=== PATIENT | male | born 1960 | race Caucasian/White ===

== ENCOUNTER 2023-10-06 18:17 | Emergency (ER) | payer OTHER, SELFPAY ==
--- OUTSIDE RECORDS SUMMARY | 2023-10-06 19:40 | XMS_ITS | Clinical Summary ---
Author Name Unknown Organization [facility] Address [address] [place] [address] Care Team Providers Care Medical Coding Auditor Name Role Phone Clinic, Amina Chavez Primary Care Provider Allergies Active Allergy Reactions Criticality Noted Date Comments Oxycodone Nausea and Vomiting 02/23/2012 Medications Medication Sig Dispensed Refills Start Date End Date Status SIMVASTATIN PO Take 40 mg by mouth At Bedtime 0 Active omeprazole (PRILOSEC) 40 MG capsule Take 1 capsule (40 mg) by mouth daily Take 30-60 minutes before a meal. 30 capsule 1 06/15/2016 Active SERTRALINE HCL PO Take 150 mg by mouth At Bedtime 0 Active ATENOLOL PO Take 25 mg by mouth every evening 0 Active metFORMIN (GLUCOPHAGE-XR) 500 MG 24 hr tablet TAKE ONE TABLET BY MOUTH EVERY DAY WITH EVENING MEAL 0 04/25/2018 Active busPIRone (BUSPAR) 10 MG tablet Take 10 mg by mouth 3 times daily 0 Active ibuprofen (ADVIL/MOTRIN) 800 MG tablet Take 1 tablet (800 mg) by mouth every 8 hours as needed for moderate pain 30 tablet 0 02/19/2019 Active atenolol (TENORMIN) 25 MG tablet Take 25 mg by mouth daily 0 12/28/2020 Active benzonatate (TESSALON) 200 MG capsuleIndications:S uspected 2019 novel coronavirus infection,Cough Take 1 capsule (200 mg) by mouth 3 times daily as needed for cough 30 capsule 0 08/01/2021 Active guaiFENesin-codeine (ROBITUSSIN AC) 100-10 MG/5ML solutionIndications: Suspected 2019 novel coronavirus infection,Cough Take 10 mLs by mouth every 6 hours as needed for cough 118 mL 0 08/01/2021 Active azithromycin (ZITHROMAX) 250 MG tablet Take 1 tablet (250 mg) by mouth daily Take 2 tablets (500 mg) today, then take 1 tablet daily on days 2 through 5. 6 tablet 0 08/23/2021 Active albuterol (PROAIR HFA) 108 (90 Base) MCG/ACT inhaler Inhale 2 puffs into the lungs every 4 hours as needed for shortness of breath / dyspnea 8 g 0 08/23/2021 Active metoclopramide (REGLAN) 10 MG tablet Take 1 tablet (10 mg) by mouth 3 times daily as needed (Nausea or Vomiting) 10 tablet 0 10/19/2021 Active metoclopramide (REGLAN) 10 MG tablet Take 1 tablet (10 mg) by mouth 4 times daily (before meals and nightly) 10 tablet 0 12/09/2021 Active hyoscyamine (LEVSIN) 0.125 MG tablet Take 1 tablet (125 mcg) by mouth every 4 hours as needed for cramping 8 tablet 0 12/09/2021 Active oxyCODONE (ROXICODONE) 5 MG tablet Take 1 tablet (5 mg) by mouth every 6 hours as needed for severe pain (7-10) 6 tablet 0 08/30/2022 Active HYDROcodone-acetamin ophen (NORCO) 5-325 MG tablet Take 1 tablet by mouth every 6 hours as needed for pain 10 tablet 0 03/31/2023 Active Active Problems Problem Noted Date Diagnosed Date Dislocated finger 03/25/2011 Contact dermatitis and other eczema, due to unspecified cause 03/25/2011 Immunizations Name Administration Dates Next Due Influenza Vaccine >6 months,quad, PF 06/20/2019, 06/13/2018,07/16/2017 Pneumococcal 23 valent 04/01/2018 Td (Adult), Adsorbed 07/16/2017 Zoster recombinant adjuvanted (SHINGRIX) 018,03/06/2018 Zoster vaccine, live 03/23/2016 Family History Medical History Relation Comments Cancer No family hx of Clotting Disorder No family hx of Diabetes No family hx of Gout No family hx of Heart Disease No family hx of Urolithiasis No family hx of Social History Tobacco Use Types Packs/Day Years Used Date Smoking Tobacco: Never Smokeless Tobacco: Never Alcohol Use Standard Drinks/Week Comments No 0 (1 standard drink = 0.6 oz pur e alcohol) Adolescent Education Answer Date Record ed Getting School Help Needed Not on file 06/13 Sex and Gender Information Value Date Recorded Sex Assigned at Not on file Gender Identity Not on file Sexual Orientation Not on file Last Filed Vital Signs Vital Sign Reading Time Taken Comments Blood Pressure 148/85 04/18/2023 6:50 PM CDT Pulse 88 04/18/2023 6:46 PM CDT Temperature 36.1 ??C (97 ??F) 04/18/2023 12: 44 PM CDT Respiratory Rate 20 04/18/2023 12:4 4 PM CDT Oxygen Saturation 96% 04/18/2023 3:35 PM CDT Inhaled Oxygen Concentration - - Weight 64.7 kg (142 lb 10.2 oz) 023 12:44 PM CDT Height 165.1 cm (5' 5) 10/19/2021 3:05 PM SHINGLE INSPECTOR Body Mass Index 23.74 10/19/2021 3:05 PM SHINGLE INSPECTOR Plan of Treatment Health Maintenance Due Date Last Done Comments ADVANCE CARE PLANNING 1960 ANNUAL REVIEW OF HM ORDERS 1958 CT COLONOGRAPHY 1958 DIABETIC FOOT EXAM 1958 EYE EXAM 1958 FLEX SIG 1958 LIPID 1958 MICROALBUMIN 1958 sDNA (Cologuard) 1958 COLONOSCOPY 1968 HIV SCREENING 1973 HEPATITIS C SCREENING 1976 RSV VACCINE ( & 60+) (1 - 1-dose 60+ series) 2018 A1C 06/30/2022 03/30/2022, 07/30, 05/18/2018 COLORECTAL CANCER SCREENING 12/01/2022 FIT 12/01/2022 12/01/2021, 08/10/2018 COVID-19 Vaccine ( season) 2023 07/01/2022, 01/18/2022, 06/20/2021, Additional history exists FALL RISK ASSESSMENT 2023 MEDICARE ANNUAL WELLNESS VISIT 2023 PHQ-2 (once per calendar year) 2023 BMP 04/18/2024 04/18/2023, 0809/2022, 08/30/2022, Additional history exists DTAP/TDAP/TD IMMUNIZATION (3 - Td or Tdap) 07/16/2027 07/16/2017, 09/18/2005 ZOSTER IMMUNIZATION Completed 05/29/2018, 03/06/2018, 03/23/2016 Pneumococcal Vaccine: 65+ Years Completed 01/18/2022, 04/01/2018 INFLUENZA VACCINE Completed 06/19/2023, , 06/15/2021, Additional history exists HPV IMMUNIZATION Aged Out No longer e ligible based on patient's age to complete this topic IPV IMMUNIZATION Aged Out No longer e ligible based on patient's age to complete this topic MENINGITIS IMMUNIZATION Aged Out No l onger eligible based on patient's age to complete this topic RSV MONOCLONAL ANTIBODY Aged Out No l onger eligible based on patient's age to complete this topic Care Teams Medical Coding Auditor Relationship Specialty Start Date End Date Clinic, Amina Chavez [address] [place] [address] [place] [id number] PCP - General 12/09/21
--- OUTSIDE RECORDS SUMMARY | 2023-10-06 19:40 | XMS_ITS | Encounter Summary ---
Author Name Unknown Organization [facility] Address [address] [place] [address] Care Team Providers Care Statistical Geneticist Name Role Phone Amina Thurman Primary Care Provider [phone] Encounter Details Date Type Department Care Team (Latest Contact Info) Description 04/18/2023 Travel Social History Tobacco Use Types Packs/Day Years Used Date Smoking Tobacco: Never Smokeless Tobacco: Never Alcohol Use Standard Drinks/Week Comments No 0 (1 standard drink = 0.6 oz pur e alcohol) Sex and Gender Information Value Date Recorded Sex Assigned at Not on file Gender Identity Not on file Sexual Orientation Not on file COVID-19 Exposure Response Date Recorded In the last 10 days, have yo u been in contact with someone who was confirmed or suspected to have Coronavirus/COVID-19? No / Unsure 04/18/2023 12:43 PM CDT documented as of this encounter Plan of Treatment Not on file documented as of this encounter Visit Diagnoses Not on filedocumented in this encounter Care Teams Statistical Geneticist Relationship Specialty Start Date End Date [facility] Thurman [address] [facility] [id number] PCP - General 12/09/21 documented as of this encounter
--- OUTSIDE RECORDS SUMMARY | 2023-10-06 19:40 | XMS_ITS | Encounter Summary ---
Author Name Unknown Organization [facility] Address [address] [place] [address] Care Team Providers Care Steel Crane Operator Name Role Phone Amina Thurman Primary Care Provider [phone] Encounter Details Date Type Department Care Team (Latest Contact Info) Description 03/31/2023 Travel Social History Tobacco Use Types Packs/Day [...] suspected to have Coronavirus/COVID-19? No / Unsure 03/31/2023 7:55 AM CDT documented as of this encounter Plan of Treatment Not on file documented as of this encounter Visit Diagnoses Not on filedocumented in this encounter Care Teams Steel Crane Operator Relationship Specialty Start Date End Date Amina Thurman [address] [place] [address] PCP - General 12/09/21 documented as of this encounter
--- OUTSIDE RECORDS SUMMARY | 2023-10-06 19:40 | XMS_ITS | Encounter Summary ---
Author Name Unknown Organization [facility] Address [address] [place] [id number] Care Team Providers Care Supervisor Mail Carriers Name Role Phone Clinic, Amina Chavez Primary Care Provider Reason for Visit * Reason Comments Flank Pain Encounter Details Date Type Department Care Team (Late st Contact Info) Description 03/31/2023 8:05 AM CDT - 03/31/2023 10:30 AM CDT Emergency [facility] Emergency Dept [address] [place] [id number] Richard Zaragoza MD [facility] [address] [place] [address] Renal colic Discharge Disposition: Home or Self Care Social History Tobacco Use Types Packs/Day Years [...] AM CDT documented as of this encounter Last Filed Vital Signs Vital Sign Reading Time Taken Comments Blood Pressure 140/91 03/31/2023 8:00 AM CDT Pulse 89 03/31/2023 10:08 AM CDT Temperature 36.5 ??C (97.7 ??F) 03/31/2023 8:00 AM CD T Respiratory Rate 20 03/31/2023 8:00 AM CDT Oxygen Saturation 96% 03/31/2023 8:00 AM CDT Inhaled Oxygen Concentration - - Weight - - Height - - Body Mass Index - - documented in this encounter Discharge Instructions * Discharge Instructions* Richard Zaragoza MD - 03/31/2023 10:08 AM CDT Please follow up with your urologist in the next 3-5 days. Discharge Instructions Kidney Stones Kidney stones are a common problem that can cause a lot of pain but fortunately are usually not dangerous. Kidney stones form in the kidney and then can cause a blockage (obstruction) of the flow of urine from the kidney which leads to pain. Most patients can manage kidney stones at home (without ahospital stay). However, sometimes your condition may be worse than it seemed at first, or may get worse with time. Most kidney stones will pass on their own, but occasionally stones may need to be removed by an urologist. Generally, every Emergency Department visit should have a follow-up clinic visit with either a primary or a specialty clinic/provider. Please follow-up as instructed by your emergency provider today. Return to the Emergency Department if: Your pain is not controlled despite the medications provided or recommended. You are vomiting (throwing up) and cannot keep fluids or medications down. You develop a fever (>100.4??F). You feel much more ill or develop new symptoms. What can I do to help myself? Be sure to drink plenty of fluids. If instructed to do so, strain your urine (pee) with the urine strainer you were provided with today. Your stone may look like a grain of sand or a small pebble. Collect any stones in the cup provided and bring to your follow-up appointment. Staying active is good, and may help the stone to pass. You may do whatever you feel up to doing without restrictions. Treatment: Non-steroidal anti-inflammatory drugs (NSAIDs). This includes prescription medicines like Toradol??(ketorolac) and non-prescription medicines like Advil?? (ibuprofen) and Nuprin?? (ibuprofen) and Naproxen. These pain relievers are very effective for kidney stones. Nausea (sick to your stomach) medication. Nausea and vomiting are common with kidney stones, so your provider may send you home with medicine for this. Flomax?? (tamsulosin). This medicine is sometimes used for men with prostate problems, but also canhelp kidney stones to pass. Its effectiveness is controversial or questionable so it is prescribed in certain situations. This medicine can lower blood pressure, and you may feel faint/lightheaded, es pecially when you first stand up. Be sure to get up gradually, sit down if you feel faint, and avoid activity where feeling faint would be dangerous, such as climbing ladders. If you were given a prescription for medicine here today, be sure to read all of the information (including the package insert) that comes with your prescription. This will include important information about the medicine, its side effects, and any warnings that you need to know about. The pharmacist who fills the prescription can provide more information and answer questions you may have about the medicine. If you have questions or concerns that the pharmacist cannot address, please call or return to the Emergency Department. Remember that you can always come back to the Emergency Department if you are not able to see your regular provider in the amount of time listed above, if you get any new symptoms, or if there is anything that worries you. documented in this encounter Medications at Time of Discharge Medication Sig Dispensed Refills Start Date End Date albuterol (PROAIR HFA) 108 (90 Base) MCG/ACT inhaler Inhale 2 puffs into the lungs every 4 hours as needed for shortness of breath / dyspnea 8 g 0 08/23/2021 atenolol (TENORMIN) 25 MG tablet Take 25 mg by mouth daily 0 12/28/2020 ATENOLOL PO Take 25 mg by mouth every evening 0 azithromycin (ZITHROMAX) 250 MG tablet Take 1 tablet (250 mg) by mouth daily Take 2 tablets (500 mg) today, then take 1 tablet daily on days 2 through 5. 6 tablet 0 08/23/2021 benzonatate (TESSALON) 200 MG capsuleIndications:Mackenzie pected 2019 novel coronavirus infection,Cough Take 1 capsule (200 mg) by mouth 3 times daily as needed for cough 30 capsule 0 08/01/2021 busPIRone (BUSPAR) 10 MG tablet Take 10 mg by mouth 3 times daily 0 guaiFENesin-codeine (ROBITUSSIN AC) 100-10 MG/5ML solutionIndications:Velazquez spected 2018 novel coronavirus infection,Cough Take 10 mLs by mouth every 6 hours as needed for cough 118 mL 0 08/01/2021 HYDROcodone-acetaminop hen (NORCO) 5-325 MG tablet Take 1 tablet by mouth every 6 hours as needed for pain 10 tablet 0 03/31/2023 hyoscyamine (LEVSIN) 0.125 MG tablet Take 1 tablet (125 mcg) by mouth every 4 hours as needed for cramping 8 tablet 0 12/09/2021 ibuprofen (ADVIL/MOTRIN) 800 MG tablet Take 1 tablet (800 mg) by mouth every 8 hours as needed for moderate pain 30 tablet 0 02/19/2019 metFORMIN (GLUCOPHAGE-XR) 500 MG 24 hr tablet TAKE ONE TABLET BY MOUTH EVERY DAY WITH EVENING MEAL 0 04/25/2018 metoclopramide (REGLAN) 10 MG tablet Take 1 tablet (10 mg) by mouth 4 times daily (before meals and nightly) 10 tablet 0 12/09/2021 metoclopramide (REGLAN) 10 MG tablet Take 1 tablet (10 mg) by mouth 3 times daily as needed (Nausea or Vomiting) 10 tablet 0 10/19/2021 omeprazole (PRILOSEC) 40 MG capsule Take 1 capsule (40 mg) by mouth daily Take 30-60 minutes before a meal. 30 capsule 1 06/15/2016 oxyCODONE (ROXICODONE) 5 MG tablet Take 1 tablet (5 mg) by mouth every 6 hours as needed for severe pain (7-10) 6 tablet 0 08/30/2022 SERTRALINE HCL PO Take 150 mg by mouth At Bedtime 0 SIMVASTATIN PO Take 40 mg by mouth At Bedtime 0 ondansetron (ZOFRAN ODT) 4 MG ODT tab Take 1 tablet (4 mg) by mouth every 8 hours as needed for nausea 10 tablet 0 03/31/2023 04/03/2023 tamsulosin (FLOMAX) 0.4 MG capsule Take 1 capsule (0.4 mg) by mouth daily for 10 doses 10 capsule 0 03/31/2023 04/10/2023 documented as of this encounter ED Notes * Elda Ascencio RN - 03/31/2023 8:57 AM CDT Bed: ED34 Expected date: Expected time: Means of arrival: Comments: FT4 * Gill Marie RN - 03/31/2023 8:01 AM CDT Arrives with right flank pain and vomiting that started last night, alert and oriented, ABCs intact. Triage Assessment Row Name 03/31/23 0801 Triage Assessment (Adult) Airway WDL WDL Respiratory WDL Respiratory WDL WDL Skin Circulation/Temperature WDL Skin Circulation/Temperature WDL WDL Cardiac WDL Cardiac WDL WDL Peripheral/Neurovascular WDL Peripheral Neurovascular WDL WDL Cognitive/Neuro/Behavioral WDL Cognitive/Neuro/Behavioral WDL WDL * Richard Zaragoza MD - 03/31/2023 7:55 AM CDT History Chief Complaint: Right Flank Pain The history is provided by the patient. Kev Yi is a 62 year old male with a history of kidney stones who presents with sudden onset of right flank pain which radiates to his right lower quadrant and started 10 hours ago. He has associated nausea and seven episodes of vomiting since onset of the pain. He denies fever or dysuria. He adds a CT 8 months ago confirmed 6 kidney stones in the right kidney and he notes he has only passedone since then. He notes he does not currently have a urologist. No history of abdominal surgeries.Patient has needed stents for his kidney stones in the past. Independent Historian: None - Patient Only Review of External Notes: None Medications: Semaglutide Lantus Solostar Cholecalciferol Eliquis Cyclobenzaprine Insulin glargine Ondansetron Pantoprazole Sucralfate Past Medical History: Type 2 diabetes mellitus with hyperglycemia Hypertension Hyperlipidemia Kidney stones Nuclear senile cataract of both eyes Hepatic steatosis Thrombosis superficial vein, arm, left DVT Gastric ulcer Presbyopia Hypermetropia of both eyes Anxiety Past Surgical History: Cystoscopy Ureteroscopy Lithotripsy EGD, combined X4 Physical Exam Patient Vitals for the past 24 hrs: BP Temp Temp src Pulse Resp SpO2 03/31/23 1008 -- -- -- 89 -- -- 03/31/23 0800 (!) 140/91 97.7 ??F (36.5 ??C) Oral 110 20 96 % Physical Exam HEENT: Oropharynx is moist Eyes: Conjunctiva normal Neck: Supple, no meningismus. CV: Regular rate and rhythm. No murmurs, rubs or gallops. No lower extremity edema. PULM: Clear to auscultation bilateral. No respiratory distress. Good air exchange. No rales or wheezing. ABD: Soft, non-distended. No abdominal tenderness although appears uncomfortable in bed. Bowel sounds normal. No pulsatile masses. No rebound, guarding or rigidity. No CVA tenderness. MSK: No gross deformity to all four extremities. LYMPH: No cervical lymphadenopathy. NEURO: Alert. Good muscular tone, no atrophy. Skin: Warm, dry and intact. Psych: Mood is good and affect is appropriate. Emergency Department Course Imaging: US Renal Complete Non-Vascular Final Result IMPRESSION: 1. Mild right hydronephrosis. Right nephrolithiasis. 2. No left hydronephrosis. JEROD ZAPIEN MD Report per radiology Laboratory: Labs Ordered and Resulted from Time of ED Arrival to Time of ED Departure BASIC METABOLIC PANEL - Abnormal Result Value Sodium 138 Potassium 4.0 Chloride 106 Carbon Dioxide (CO2) 21 (*) Anion Gap 11 Urea Nitrogen 13.6 Creatinine 0.85 Calcium 8.9 Glucose 156 (*) GFR Estimate >90 ROUTINE UA WITH MICROSCOPIC REFLEX TO CULTURE - Abnormal Color Urine Light Yellow Appearance Urine Clear Glucose Urine 300 (*) Bilirubin Urine Negative Ketones Urine 20 (*) Specific [place] Urine 1.013 Blood Urine Negative pH Urine 7.0 Protein Albumin Urine Negative Urobilinogen Urine Normal Nitrite Urine Negative Leukocyte Esterase Urine Negative Bacteria Urine Few (*) Mucus Urine Present (*) RBC Urine <1 WBC Urine <1 CBC WITH PLATELETS AND DIFFERENTIAL WBC Count 10.0 RBC Count 4.90 Hemoglobin 15.8 Hematocrit 46.2 MCV 94 MCH 32.2 MCHC 34.2 RDW 11.9 Platelet Count 225 % Neutrophils 82 % Lymphocytes 8 % Monocytes 8 % Eosinophils 2 % Basophils 0 % Immature Granulocytes 0 NRBCs per 100 WBC 0 Absolute Neutrophils 8.3 Absolute Lymphocytes 0.8 Absolute Monocytes 0.8 Absolute Eosinophils 0.2 Absolute Basophils 0.0 Absolute Immature Granulocytes 0.0 Absolute NRBCs 0.0 Emergency Department Course & Assessments: Interventions: Medications HYDROmorphone (PF) (DILAUDID) injection 0.5 mg (0.5 mg Intravenous $Given 03/31/23 0930) ondansetron (ZOFRAN) injection 8 mg (8 mg Intravenous $Given 03/31/23820) 0.9% sodium chloride BOLUS (1,000 mLs Intravenous $New Bag 03/31/23820) ketorolac (TORADOL) injection 15 mg (15 mg Intravenous $Given 03/31/23821) Independent Interpretation (X-rays, CTs, rhythm strip): None Assessments/Consultations/Discussion of Management or Tests: ED Course as of 03/31/23 1010 WedMar 31, 2023 0810 I obtained the patient's history and examined as noted above. 1004 I rechecked the patient and explained findings. Social Determinants of Health affecting care: None Disposition: The patient was discharged to home. Impression & Plan Medical Decision Makin-year-old male with a history of recurrent ureteral colic presents with abrupt onset of right flank pain 10 hours prior. He has a history and examination that's consistent with recurrent ureteral stone. There is no associated urinary tract infection or renal insufficiency. He's had multiple CT scans evaluating for ureteral stones. Most recent CT scan showed bilateral intrarenal stones. In attempt to avoid excessive radiation, patient underwent renal ultrasound in which there is right-sided hydronephrosis again consistent with ureteral stone. Patient had remarkable improvement with interventions as described above. We will presumptively treat for right ureteral stone with hydrocodone, Zofran, Flomax and follow-up with urology. Return to ED for worsening symptoms. Diagnosis: ICD-10-CM 1. Renal colic N23 Discharge Medications: New Prescriptions HYDROCODONE-ACETAMINOPHEN (NORCO) 5-325 MG TABLET Take 1 tablet by mouth every 6 hours as needed for pain ONDANSETRON (ZOFRAN ODT) 4 MG ODT TAB Take 1 tablet (4 mg) by mouth every 8 hours as needed for nausea TAMSULOSIN (FLOMAX) 0.4 MG CAPSULE Take 1 capsule (0.4 mg) by mouth daily for 10 doses Scribe Disclosure: I, Melissa Stacie, am serving as a scribe at 8:07 AM on 03/31/2023 to document services personally performed by Richard Zaragoza MD based on my observations and the provider's statements to me. 03/31/2023 Richard Zaargoza MD Matthews, Jeremiah R, MD 03/31/23 1240 documented in this encounter Plan of Treatment Not on file documented as of this encounter Procedures Procedure Name Priority Date/Time Associated Diagnosis Comments ROUTINE UA WITH MICROSCOPIC REFLEX TO CULTURE STAT 03/31/2023 9:27 AM CDT US RENAL COMPLETE NON-VASCULAR STAT 03/31/2023 9:24 AM CDT EXTRA TUBE STAT 03/31/2023 8:15 AM CDT EXTRA RED TOP TUBE STAT 03/31/2023 8: 15 AM CDT EXTRA BLUE TOP TUBE STAT 03/31/2023 8 :15 AM CDT CBC WITH PLATELETS AND DIFFERENTIAL STAT 03/31/2023 8:15 AM CDT CBC WITH PLATELETS & DIFFERENTIAL STAT 03/31/2023 8:15 AM CDT BASIC METABOLIC PANEL STAT 03/31/2023 8:15 AM CDT documented in this encounter Results * (ABNORMAL) UA with Microscopic reflex to Culture (03/31/2023 9:27 AM CDT) Color Urine Light Yellow Colorless, Straw, Light Yellow, Yellow 03/31/2023 9:46 AM CDT [facility] Appearance Urine Clear Clear 03/31/20 9:46 AM CDT LABORATORY Glucose Urine 300(A) Negative mg/dL 03/31/2023 9:46 AM CDT [facility] Bilirubin Urine Negative Negative 9:46 AM CDT LABORATORY Ketones Urine 20(A) Negative mg/dL 03/31/2023 9:46 AM CDT [facility] Specific [place] Urine 1.013 1.003 - 1.035 03/31/2023 9:46 AM CDT [facility] Blood Urine Negative Negative 03/31/2023 9:46 AM CDT LABORATORY pH Urine 7.0 5.0 - 7.0 03/31/2023 9:46 AM CDT [facility] Protein Albumin Urine Negative Negative mg/dL 03/31/2023 9:46 AM CDT [facility] Urobilinogen Urine Normal Normal, 2.0 mg/dL 03/31/2023 9:46 AM CDT [facility] Nitrite Urine Negative Negative 03/31/2023 9:46 AM CDT [facility] Leukocyte Esterase Urine Negative Negative 03/31/2023 9:46 AM CDT LABORATORY Bacteria Urine Few(A) None Seen /HPF 03/31/2023 9:46 AM CDT LABORATORY Mucus Urine Present(A) None Seen /LPF 03/31/2023 9:46 AM CDT [facility] RBC Urine <1 <=2 /HPF 03/31/2023 9:46 AM CDT [facility] WBC Urine <1 <=5 /HPF 03/31/2023 9:46 AM CDT LABORATORY Urine MID-STREAM URINE SPECIMEN / Unknown Non-blood Collection / Unknown 03/31/2023 9:27 AM CDT 03/31/2023 9:31 AM CDT Narrative LABORATORY - 03/31/2023 9:46 AM CDT Urine Culture not indicated Richard Zaragoza MD LAB - URINE ORDER [facility] [address] Lab (1st floor, no room number) [place] [address], [facility] [phone] * US Renal Complete Non-Vascular (03/31/2023 9:24 AM CDT) Anatomical Region Laterality Modality Abdomen/Pelvis Ultrasound Impressions 03/31/2023 9:34 AM CDT IMPRESSION: 1. ??Mild right hydronephrosis. Right nephrolithiasis. 2. ??No left hydronephrosis. JEROD ZAPIEN MD Narrative 03/31/2023 9:34 AM CDT US RENAL COMPLETE NON-VASCULAR 03/31/2023 9:24 AM CLINICAL HISTORY: right flank pain, hx of ureteral stones TECHNIQUE: Routine Bilateral Renal and Bladder Ultrasound. COMPARISON: CT abdomen and pelvis 08/30/2022. FINDINGS: RIGHT KIDNEY: 11.4 x 5.4 x 5.0 cm. Normal echogenicity. Mild hydronephrosis. Echogenic structure with twinkle artifact in the right interpolar kidney measuring up to 4 mm consistent with a calculus. No cysts. LEFT KIDNEY: 10.8 x 4.1 x 4.4 cm. Normal echogenicity without hydronephrosis or masses. No cysts. BLADDER: Normal. Procedure Note Jerod Zapien MD - 03/31/2023 US RENAL COMPLETE NON-VASCULAR 03/31/2023 9:24 AM CLINICAL HISTORY: right flank pain, hx of ureteral stones TECHNIQUE: Routine Bilateral Renal and Bladder Ultrasound. COMPARISON: CT abdomen and pelvis 08/30/2022. FINDINGS: RIGHT KIDNEY: 11.4 x 5.4 x 5.0 cm. Normal echogenicity. Mild hydronephrosis. Echogenic structure with twinkle artifact in the right interpolar kidney measuring up to 4 mm consistent with a calculus. No cysts. LEFT KIDNEY: 10.8 x 4.1 x 4.4 cm. Normal echogenicity without hydronephrosis or masses. No cysts. BLADDER: Normal. IMPRESSION: 1. Mild right hydronephrosis. Right nephrolithiasis. 2. No left hydronephrosis. JEROD ZAPIEN MD Richard Zaragoza MD [facility] US ORDERABLES * Extra Red Top Tube (03/31/2023 8:15 AM CDT) [facility] Specimen [facility] 03/31/2023 9:32 AM CDT [facility] Blood BLOOD SPECIMEN / Unknown Venipuncture / Unknown 03/31/2023 8:15 AM CDT 03/31/2023 8:18 AM CDT Richard Zaragoza MD LAB - BLOOD ORDER [facility] [address] Lab (1st floor, no room number) [place] [address], [facility] [phone] * Extra Blue Top Tube (03/31/2023 8:15 AM CDT) Hold Specimen [facility] 03/31/2023 9:32 AM CDT [facility] Blood BLOOD SPECIMEN / Unknown Venipuncture / Unknown 03/31/2023 8:15 AM CDT 03/31/2023 8:18 AM CDT Richard Zaragoza MD LAB - BLOOD ORDER [facility] [address] Lab (1st floor, no room number) [place] [phone], [facility] [phone] * CBC with platelets and differential (03/31/2023 8:15 AM CDT) WBC Count 10.0 4.0 - 11.0 10e3/uL 03/31/2023 8:22 AM CDT [facility] RBC Count 4.90 4.40 - 5.90 10e6/uL 03/31/2023 8:22 AM CDT [facility] Hemoglobin 15.8 13.3 - 17.7 g/dL 03/31/2023 8:22 AM CDT [facility] Hematocrit 46.2 40.0 - 53.0 % 03/31/2023 8:22 AM CDT [facility] MCV 94 78 - 100 fL 03/31/2023 8:22 AM CDT [facility] MCH 32.2 26.5 - 33.0 pg 03/31/2023 8:22 AM CDT [facility] MCHC 34.2 31.5 - 36.5 g/dL 03/31/2023 8:22 AM CDT [facility] RDW 11.9 10.0 - 15.0 % 03/31/2023 8:22 AM CDT [facility] Platelet Count 225 150 - 450 10e3/uL 03/31/2023 8:22 AM CDT [facility] % Neutrophils 82 % 03/31/2023 8:22 AM CDT [facility] % Lymphocytes 8 % 03/31/2023 8:22 AM CDT [facility] % Monocytes 8 % 03/31/2023 8:22 AM CDT [facility] % Eosinophils 2 % 03/31/2023 8:22 AM CDT [facility] % Basophils 0 % 03/31/2023 8:22 AM CDT [facility] % Immature Granulocytes 0 % 03/31/2023 8:22 AM CDT [facility] NRBCs per 100 WBC 0 <1 /100 023 8:22 AM CDT [facility] Absolute Neutrophils 8.3 1.6 - 8.3 10e3/uL 03/31/2023 8:22 AM CDT [facility] Absolute Lymphocytes 0.8 0.8 - 5.3 10e3/uL 03/31/2023 8:22 AM CDT [facility] Absolute Monocytes 0.8 0.0 - 1.3 10e3/uL 03/31/2023 8:22 AM CDT [facility] Absolute Eosinophils 0.2 0.0 - 0.7 10e3/uL 03/31/2023 8:22 AM CDT [facility] Absolute Basophils 0.0 0.0 - 0.2 10e3/uL 03/31/2023 8:22 AM CDT [facility] Absolute Immature Granulocytes 0.0 <=0.4 10e3/uL 03/31/2023 8:22 AM CDT [facility] Absolute NRBCs 0.0 10e3/uL 03/31/2023 8:22 AM CDT [facility] Blood BLOOD SPECIMEN / Unknown Venipuncture / Unknown 03/31/2023 8:15 AM CDT 03/31/2023 8:18 AM CDT Richard Zaragoza MD LAB - BLOOD ORDER [facility] [address] Lab (1st floor, no room number) [place] [address], [facility] [phone] * (ABNORMAL) Basic metabolic panel (03/31/2023 8:15 AM CDT) Sodium 138 136 - 145 mmol/L 03/31/2023 8:55 AM CDT LABORATORY Potassium 4.0 3.4 - 5.3 mmol/L 03/31/2023 8:55 AM CDT LAB[facility]ORY Chloride 106 98 - 107 mmol/L 03/31/2023 8:55 AM CDT LABORATORY Carbon Dioxide (CO2) 21(L) 22 - 29 mmol/L 03/31/2023 8:55 AM CDT LAB[facility]ORY Anion Gap 11 7 - 15 mmol/L 03/31/2023 8:55 AM CDT LABORATORY Urea Nitrogen 13.6 8.0 - 23.0 mg/dL 03/31/2023 8:55 AM CDT LABORATORY Creatinine 0.85 0.67 - 1.17 mg/dL 03/31/2023 8:55 AM CDT LABORATORY Calcium 8.9 8.8 - 10.2 mg/dL 03/31/2023 8:55 AM CDT LAB[facility]ORY Glucose 156(H) 70 - 99 mg/dL 03/31/2023 8:55 AM CDT LABORATORY GFR Estimate >90 >60 mL/min/1.7 3m2 03/31/2023 8:55 AM CDT LAB[facility] Blood BLOOD SPECIMEN / Unknown Venipuncture / Unknown 03/31/2023 8:15 AM CDT 03/31/2023 8:18 AM CDT Richard Zaragoza MD LAB - BLOOD ORDER [facility] [address] Lab (1st floor, no room number) [place] [address], [facility] [phone] documented in this encounter Visit Diagnoses Diagnosis Renal colic documented in this encounter Administered Medications Inactive Administered Medications - up to 3 most recent administrations Medication Order MAR Action Action Date Dose Rate Site 0.9% sodium chloride BOLUS Intravenous, 1,000 mL, ONCE, at 1,000 mL/hr, Administer over 1 Hours, On Wed03/31/23 at 0810, For 1 dose $New Bag 03/31/2023 8:21 AM CDT 1,000 mLs 1000 mL/hr HYDROmorphone (PF) (DILAUDID) injection 0.5 mg 0.5 mg, Intravenous, EVERY 15 MIN PRN, moderate pain, severe pain, Starting on Wed03/31/23 at 0900, For 3 doses $Given 03/31/2023 9:30 AM CDT 0.5 mg ketorolac (TORADOL) injection 15 mg 15 mg, Intravenous, ONCE, On Wed03/31/23 at 0820, For 1 dose, Can cause pain on injection. If ordered intravenously (IV) : administer through a running maintenance fluid over 1 minute followed by a flush. If patient complains of pain on injection, may dilute 15-30 mg in 5 mL and push over 1 to 2 minutes. $Given 03/31/2023 8:22 AM CDT 15 mg ondansetron (ZOFRAN) injection 8 mg 8 mg, Intravenous, ONCE, Administer over 2-5 Minutes, On Wed03/31/23 at 0810, For 1 dose, Irritant. $Given 03/31/2023 8:21 AM CDT 8 mg documented in this encounter Active and Recently Administered Medications Times are shown in CDT. Scheduled Medication Order 03/29/2023 03/30/2023 03/31/2023 0.9% sodium chloride BOLUS (COMPLETED) Intravenous, 1,000 mL, ONCE, at 1,000 mL/hr, Administer over 1 Hours, On Wed03/31/23 at 0810, For 1 dose 0821 ($New Bag - Pro vider: Elda Ascencio RN)1024 (Stopped - Provider: Madyson Brush RN) ketorolac (TORADOL) injection 15 mg (COMPLETED) 15 mg, Intravenous, ONCE, On Wed03/31/23 at 0820, For 1 dose, Can cause pain on injection. If ordered intravenously (IV) : administer through a running maintenance fluid over 1 minute followed by a flush. If patient complains of pain on injection, may dilute 15-30 mg in 5 mL and push over 1 to 2 minutes. 0822 ($Given - Provi rogerio: Elda Ascencio RN) ondansetron (ZOFRAN) injection 8 mg (COMPLETED) 8 mg, Intravenous, ONCE, Administer over 2-5 Minutes, On Wed03/31/23 at 0810, For 1 dose, Irritant. 0821 ($Given - Provi rogerio: Elda Ascencio RN) PRN Medication Order 03/29/2023 03/30/2023 03/31/2023 HYDROmorphone (PF) (DILAUDID) injection 0.5 mg 0.5 mg, Intravenous, EVERY 15 MIN PRN, moderate pain, severe pain, Starting on Wed03/31/23 at 0900, For 3 doses 0930 ($Given - Provi rogerio: Madyson Brush RN) documented in this encounter Care Teams Supervisor Mail Carriers Relationship Specialty Start Date End Date [facility], Amina Chavez [address] [place] [address] [id number] PCP - General 12/09/21 documented as of this encounter
--- OUTSIDE RECORDS SUMMARY | 2023-10-06 19:40 | XMS_ITS | Encounter Summary ---
Author Name Unknown Organization [place] Address [address] [place] [address] Care Team Providers Care Net Architect Name Role Phone Clinic, Amina Chavez Primary Care Provider [phone] Reason for Referral * Consultation (Routine: Next available opening) - Pending Review Specialty Diagnoses / Procedures Referred By Greg lopez Referred To Contact Urology Diagnoses Nephrolithiasis Carly Jesus MD [facility] [address] [place], [place] [id number] Referral ID Status Reason Start Date Expiration Date V isits Requested Visits Authorized [id number] Pending Review 07/02/2023 07/01/2024 1 1 Question Answer Referral Type: Urology Reason for Referral: Kidney Stones Kidney Stone Type: Acute Scheduling Instructions: [employer] will call you to coordinate care as prescribed your provider. If you don? t hear from a technical account representative within 2 business days, please call . Additional Information: N20.0 with 5 mm stone Comments Referral Transcribed by external fax Provider: Carly Jesus affiliated with [facility] at [address] [place], [place] [id number]. [place]: No If yes was is the [place] Authorization Number: Phone number: [phone] Fax number: [phone] Please be aware that coverage of these services is subject to the terms and limitations of your health insurance plan. Call member services at your health plan with any benefit or coverage questions. [employer] will call you to coordinate care as prescribed your provider. If you don? t hear from a technical account representative within 2 business days, please call . Encounter Details Date Type Department Care Team (Latest Contact Info) Description 07/02/2023 Transcribe Orders GENERIC EXTERNAL DATA DEPARTMENT Provider, Generic External Data Nephrolithiasis (Primary Dx) Social History Tobacco Use Types Packs/Day Years [...] on file Sexual Orientation Not on file documented as of this encounter Plan of Treatment Scheduled Referrals Name Type Priority Associated Diagnoses Orde r Schedule Adult Urology Site Technician Referral Referral Priority: 1-2 Weeks Nephrolithiasis Expected: 07/02/2023 (Approximate), Expires: 07/02/2024 documented as of this encounter Visit Diagnoses Diagnosis Nephrolithiasis- Primary Calculus of kidney documented in this encounter Care Teams Net Architect Relationship Specialty Start Date End Date Clinic, Amina Chavez [address] [place] [address] [place] [address] PCP - General 12/09/21 documented as of this encounter
--- OUTSIDE RECORDS SUMMARY | 2023-10-06 19:40 | XMS_ITS | Clinical Summary ---
Author Name Unknown Organization [facility] Address [address] [place] [address] Care Team Providers Care Football Pad Repairer Name Role Phone Needs Pcp, Assignment Primary Care Provider [phone] Source Comments You are receiving this document as you are listed as the primary care provider,follow-up provider, or the patient has been referred to you for consultation.This is in compliance with the Medicare and[facility] Cent[facility]aid EHR Incentive Program,which states Providers who transition their patient to another setting of careor provider of care or refers their patient to another provider of care shouldprovide summary care record for each transition of care or referral. [facility] Allergies No known active allergies Medications Medication Sig Dispensed Refills Start Date End Date Status atenolol (TENORMIN) 25 MG tablet Take 25 mg by mouth daily. 0 04/27/2020 Active busPIRone (BUSPAR) 10 MG tablet Take 10 mg by mouth two times a day. 0 06/05/2020 Active Continuous Blood Gluc Sensor (FREESTYLE CAT 14 DAY SENSOR) MISC 0 06/24/2020 Activ e metFORMIN (GLUCOPHAGE) 500 MG tablet Take 500 mg by mouth two times a day with meals. 0 Active Active Problems No known active problems Social History Tobacco Use Types Packs/Day Years Used Date Smoking Tobacco: Never Sex and Gender Information Value Date Recorded Sex Assigned at Not on file Gender Identity Not on file Sexual Orientation Not on file Last Filed Vital Signs Vital Sign Reading Time Taken Comments Blood Pressure 133/86 02/18/2022 6:03 PM CDT Pulse 84 02/18/2022 6:03 PM CDT Temperature 36.6 ??C (97.9 ??F) 07/01/2020 6:31 PM CS T Respiratory Rate 16 07/01/2020 6:31 PM LEAD CLINICAL RESEARCH COORDINATOR Oxygen Saturation 98% 07/01/2020 6:31 PM LEAD CLINICAL RESEARCH COORDINATOR Inhaled Oxygen Concentration - - Weight - - Height - - Body Mass Index - - Plan of Treatment Health Maintenance Due Date Last Done Comments Colon Cancer Screening Plan Due 1960 Hep C Screening (Preventive Services) 1960 PSA Screening Discussion 1960 Adult Preventive Visit 1976 Cholesterol 1993 DTaP/Tdap/Td (1 - Tdap) 07/17/2017 07/16/2017 COVID-19 Vaccine ( season) 2023 01/18/2022, 06/20/2021, 12/04/2020, Additional history exists Influenza (#1) 2023 06/15/2021, 04/2020, 06/20/2019, Additional history exists Zoster/Shingles Completed 05/29/2018, 03/2018, 03/23/2016 Pneumococcal 65+ Yrs Completed 01/18/2022, 04/01/20 18 HepA Aged Out No longer eligi ble based on patient's age to complete this topic HepB Aged Out No longer eligi ble based on patient's age to complete this topic Hib Aged Out No longer eligi ble based on patient's age to complete this topic IPV (Polio) Aged Out No longer eligi ble based on patient's age to complete this topic MCV4 Aged Out No longer eligi ble based on patient's age to complete this topic Care Teams Football Pad Repairer Relationship Specialty Start Date End Date Needs P[place], [place] [address] PCP - General 08/10/22
--- OUTSIDE RECORDS SUMMARY | 2023-10-06 19:40 | XMS_ITS | Encounter Summary ---
Author Name Unknown Organization [facility] Address [address] [place] [address] Care Team Providers Care Mussel Opener Name Role Phone [facility] Primary Care Provider + Amina Thurman Primary Care Provider [phone] Encounter Details Date Type Department Care Team (Late st Contact Info) Description 08/24/2021 Documentation Only INTERFACED REPORT Unknown, Provider Social History Tobacco Use Types Packs/Day Years Used Date Smoking Tobacco: Never Smokeless Tobacco: Never Alcohol Use Standard Drinks/Week Comments No 0 (1 standard drink = 0.6 oz pur e alcohol) Sex and Gender Information Value Date Recorded Sex Assigned at Not on file Gender Identity Not on file Sexual Orientation Not on file COVID-19 Exposure Response Date Recorded In the last month, have you been in contact with someone who was confirmed or suspected to have Coronavirus / COVID-19? No / Unsure 08/23/2021 8:01 PM CAFETERIA WORKER documented as of this encounter Plan of Treatment Not on file documented as of this encounter Visit Diagnoses Not on filedocumented in this encounter Additional Health Concerns Infection Onset Date Last Indicated Resolved Time Rule Out COVID-19 08/28/2021 08/28/2021 08/28/2021 8:11 PM CAFETERIA WORKER Influenza 08/28/2021 08/28/2021 09/04/2021 11:3 9 PM CAFETERIA WORKER documented as of this encounter Care Teams Mussel Opener Relationship Specialty Start Date End Date [facility] [address] [place] [address] PCP - General 02/19/19 12/08/21 [facility], Amina Chavez [address] [place] [address] KAVITHA Chavez [phone] PCP - General 12/09/21 documented as of this encounter
--- OUTSIDE RECORDS SUMMARY | 2023-10-06 19:40 | XMS_ITS | Encounter Summary ---
Author Name Unknown Organization [facility] Address [address] [place] [address] Care Team Providers Care Ccnp Name Role Phone Clinic, Amina Chavez Primary Care Provider Reason for Visit * Reason Comments Hypoglycemia Encounter Details Date Type Department Care Team (Late st Contact Info) Description 04/18/2023 1:20 PM CDT - 04/18/2023 6:55 PM CDT Emergency [facility] Emergency Dept [address] [place] [address] Heriberto Cantu MD [address], [address] [id number] Hypoglycemia; Insulin dependent type 2 diabetes mellitus (H) Discharge Disposition: Home or Self Care Social [...] PM CDT documented as of this encounter Last [...] 10.2 oz) 023 12:44 PM CDT Height - - Body Mass Index 23.74 10/19/2021 3:05 PM CYCLE ANALYST documented in this encounter Discharge Instructions * Discharge Instructions* Heriberto Cantu MD - 04/18/2023 6:39 PM CDT Please skip your Lantus dose this evening and call your automotive service professional and/or primary care provider first thing in the morning for follow-up regarding your hypoglycemia. * Attachments The following attachments cannot be sent through Care Everywhere. * Hypoglycemia in Diabetes: General Info (Arabic) documented in this encounter Medications at Time [...] tablet 0 08/23/2021 benzonatate (TESSALON) 200 MG capsuleIndications:Susp ected 2019 novel coronavirus infection,Cough Take 1 capsule (200 mg) by mouth 3 times daily as needed for cough 30 capsule 0 08/01/2021 busPIRone (BUSPAR) 10 MG tablet Take 10 mg by mouth 3 times daily 0 guaiFENesin-codeine (ROBITUSSIN AC) 100-10 MG/5ML solutionIndications:Mackenzie pected 2019 novel coronavirus infection,Cough Take 10 mLs by mouth every 6 hours as needed for cough 118 mL 0 08/01/2021 HYDROcodone-acetaminoph en (NORCO) 5-325 MG tablet Take 1 tablet [...] 40 mg by mouth At Bedtime 0 documented as of this encounter ED Notes * Carly Vargas RN - 04/18/2023 5:51 PM CDT Pt's BG 170 post boxed lunch that was provided. Pt denies needs at this time. * Madyson Brush RN - 04/18/2023 12:44 PM CDT Pt would like to be evaluated for hypoglycemia. Pt states he has a continuous monitor and it has been alerting him that his BG has been in the 40s. Pt notes that he is symptomatic when this happens and it causes him to be weak and shaky. States he eats and his BG goes back up but only for a short amount of time. Denies recent medication changes. Aox4. ABCs intact. BP (!) 140/83 Pulse 87 Temp 97 ??F (36.1 ??C) (Temporal) Resp 20 Wt 64.7 kg (142 lb 10.2 oz) SpO2 100% BMI 23.74 kg/m?? Triage Assessment Row Name 04/18/23 1244 Triage Assessment (Adult) Airway WDL WDL Respiratory WDL Respiratory WDL WDL Cardiac WDL Cardiac WDL WDL Cognitive/Neuro/Behavioral WDL Cognitive/Neuro/Behavioral WDL WDL * Heriberto Cantu MD - 04/18/2023 12:41 PM CDT History Chief Complaint: Hypoglycemia The history is provided by the patient. Kev Yi is a 62 year old male with a history of type 2 diabetes mellitus who presents with hypoglycemia. He first developed some shakiness yesterday afternoon, and his blood sugar has been low since then. At bedside, he endorses slight nausea. Another symptom mentioned was that he has lost 25 lb within the past several months. For his diabetes, he normally takes 12 units on Lantus every night and 1 mg Ozempic once a week. There has been no recent changes to his medications. He had his A1C checked last and it was 6.1 at the time. He denies cough, fever, chills, or urinary symptoms. Independent Historian: None - Patient Only Review of External Notes: I reviewed a telephone not reform yesterday for shakiness and blow BG. His reading from that day include: 2 pm 57, 3 pm 52, 5:45 pm 50, 8 pm 47, 8:16 pm low. Medications: Albuterol Atenolol Azithromycin Benzonatate Buspirone [place] Hyoscyamine Metformin Metoclopramide Omeprazole Oxycodone Sertraline Simvastatin Past Medical History: Type 2 DM HTN Kidney stones Hepatic steatosis DVT Gastric ulcer Anxiety HLD Past Surgical History: B/L lithotripsy Physical Exam Patient Vitals for the past 24 hrs: BP Temp Temp src Pulse Resp SpO2 Weight 04/18/23 1850 (!) 148/85 -- -- -- -- -- -- 04/18/23 1846 (!) 148/85 -- -- 88 -- -- -- 04/18/23 1535 (!) 142/96 -- -- -- -- 96 % -- 04/18/23 1530 (!) 136/95 -- -- 83 -- 98 % -- 04/18/23 1335 -- -- -- -- -- 96 % -- 04/18/23 1330 (!) 116/91 -- -- 85 -- -- -- 04/18/23 1244 (!) 140/83 97 ??F (36.1 ??C) Temporal 87 20 100 % 64.7 kg (142 lb 10.2 oz) Physical Exam General: Laying on the ED bed HEENT: Normocephalic, atraumatic Cardiac: Warm and well perfused, regular rate and rhythm Pulm: Breathing comfortably, no accessory muscle usage, no conversational dyspnea, and lungs clear bilaterally GI: Abdomen soft, nontender, no rigidity or guarding MSK: No bony deformities Skin: Warm and dry Neuro: Moves all extremities Psych: Pleasant mood and affect Emergency Department Course Laboratory: Labs Ordered and Resulted from Time of ED Arrival to Time of ED Departure GLUCOSE BY METER - Abnormal Result Value GLUCOSE BY METER POCT 136 (*) GLUCOSE BY METER - Abnormal GLUCOSE BY METER POCT 159 (*) BASIC METABOLIC PANEL - Normal Sodium 140 Potassium 3.9 Chloride 106 Carbon Dioxide (CO2) 23 Anion Gap 11 Urea Nitrogen 13.1 Creatinine 0.96 Calcium 9.6 Glucose 87 GFR Estimate 88 MAGNESIUM - Normal Magnesium 2.0 TSH WITH FREE T4 REFLEX - Normal TSH 1.21 CBC WITH PLATELETS AND DIFFERENTIAL WBC Count 6.1 RBC Count 4.88 Hemoglobin 15.8 Hematocrit 45.6 MCV 93 MCH 32.4 MCHC 34.6 RDW 11.9 Platelet Count 216 % Neutrophils 62 % Lymphocytes 25 % Monocytes 10 % Eosinophils 2 % Basophils 1 % Immature Granulocytes 0 NRBCs per 100 WBC 0 Absolute Neutrophils 3.8 Absolute Lymphocytes 1.5 Absolute Monocytes 0.6 Absolute Eosinophils 0.1 Absolute Basophils 0.0 Absolute Immature Granulocytes 0.0 Absolute NRBCs 0.0 Emergency Department Course & Assessments: Interventions: None Assessments: 1349 I obtained history and examined the patient as noted above. 152 I rechecked the patient and updated. 1814 I rechecked the patient and explained findings. .jdssdis Independent Interpretation (X-rays, CTs, rhythm strip): None Consultations/Discussion of Management or Tests: None Social Determinants of Health affecting care: None Disposition: The patient was discharged to home. Impression & Plan Medical Decision Makin-year-old male presents with recurrent hypoglycemia since yesterday as described above. He is well-appearing on examination, however his CGM is reading 62 on my assessment. Lab work is largely unremarkable. Initial fingerstick does correlate with the patient's continuous glucose monitor. No clearreason for today's recurrent hypoglycemia. The patient is positive he took the prescribed 12 units of Lantus, very low suspicion for medication administration error. No recent medication changes, no infectious symptoms, no recent dramatic weight loss although he has not lost about 25 pounds over the last several months. The patient was observed in the ED and monitored for recurrent hypoglycemia. His blood sugar did drop again to the 60s but then lanette appropriately with a meal. The nadirs on hisCGM graph appear to be gradually increasing. He managed the recurrent hypoglycemia episodes at homelast night effectively. We discussed the possibility of observation in the hospital versus discharge home and the patient prefers the latter. He will skip his Lantus dose tonight and follow-up closely with his automotive service professional or PCP first thing in the morning. He has already sent the messages whilein the ED. Fingerstick prior to discharge showed a reading in the 150s while the CGM was reading 110s, so CGM malfunction does remain in the differential for the above presentation. I feel this is less likely given the patient's shakiness/corresponding symptoms when his CGM reads low. Either way, patient discharged home with close follow-up tomorrow as outlined above and RTED for recurrent episodes in the meantime that do not respond to home intervention. Diagnosis: ICD-10-CM 1. Hypoglycemia E16.2 2. 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 04/18/2023 Heriberto Cantu MD King, Colin, MD 04/18/23 6544 documented in this encounter Plan of Treatment Not on file documented as of this encounter Procedures Procedure Name Priority Date/Time Associated Diagnosis Comments GLUCOSE BY METER STAT 04/18/2023 6:36 PM CDT CBC WITH PLATELETS AND DIFFERENTIAL STAT 04/18/2023 2:45 PM CDT CBC WITH PLATELETS & DIFFERENTIAL STAT 04/18/2023 2:45 PM CDT TSH WITH FREE T4 REFLEX STAT 04/18/2023 2:45 PM CDT MAGNESIUM STAT 04/18/2023 2:45 PM CDT BASIC METABOLIC PANEL STAT 04/18/2023 2:45 PM CDT GLUCOSE BY METER STAT 04/18/2023 12:4 8 PM CDT documented in this encounter Results * (ABNORMAL) Glucose by meter (04/18/2023 6:36 PM CDT) GLUCOSE BY METER POCT 159(H) 70 - 99 mg/dL 04/18/2023 6:44 PM CDT LABORATORY POC Blood, Capillary BLOOD SPECIMEN / Unknown 04/18/2023 6:36 PM CDT 04/18/2023 6:44 PM CDT Heriberto AYERS - CHASTITYAKER POCT RH LABORATORY [facility] Acute Care Lab [address] [facility] Lab (1st floor, no room number) [place] [address], [facility] [phone] * CBC with platelets and differential (04/18/2023 2:45 PM CDT) WBC Count 6.1 4.0 - 11.0 10e3/uL 04/18/2023 2:55 PM CDT RH LABORATORY RBC Count 4.88 4.40 - 5.90 10e6/uL 04/18/2023 2:55 PM CDT RH LABORATORY Hemoglobin 15.8 13.3 - 17.7 g/dL 04/18/2023 2:55 PM CDT RH LABORATORY Hematocrit 45.6 40.0 - 53.0 % 04/18/2023 2:55 PM CDT RH LABORATORY MCV 93 78 - 100 fL 04/18/2023 2:55 PM CDT RH LABORATORY MCH 32.4 26.5 - 33.0 pg 04/18/2023 2:55 PM CDT RH LABORATORY MCHC 34.6 31.5 - 36.5 g/dL 04/18/2023 2:55 PM CDT RH LABORATORY RDW 11.9 10.0 - 15.0 % 04/18/2023 2:55 PM CDT RH LABORATORY Platelet Count 216 150 - 450 10e3/uL 04/18/2023 2:55 PM CDT RH LABORATORY % Neutrophils 62 % 04/18/2023 2:55 PM CDT RH LABORATORY % Lymphocytes 25 % 04/18/2023 2:55 PM CDT RH LABORATORY % Monocytes 10 % 04/18/2023 2:55 PM CDT RH LABORATORY % Eosinophils 2 % 04/18/2023 2:55 PM CDT RH LABORATORY % Basophils 1 % 04/18/2023 2:55 PM CDT RH LABORATORY % Immature Granulocytes 0 % 04/18/2023 2:55 PM CDT RH LABORATORY NRBCs per 100 WBC 0 <1 /100 023 2:55 PM CDT RH LABORATORY Absolute Neutrophils 3.8 1.6 - 8.3 10e3/uL 04/18/2023 2:55 PM CDT RH LABORATORY Absolute Lymphocytes 1.5 0.8 - 5.3 10e3/uL 04/18/2023 2:55 PM CDT RH LABORATORY Absolute Monocytes 0.6 0.0 - 1.3 10e3/uL 04/18/2023 2:55 PM CDT RH LABORATORY Absolute Eosinophils 0.1 0.0 - 0.7 10e3/uL 04/18/2023 2:55 PM CDT RH LABORATORY Absolute Basophils 0.0 0.0 - 0.2 10e3/uL 04/18/2023 2:55 PM CDT RH LABORATORY Absolute Immature Granulocytes 0.0 <=0.4 10e3/uL 04/18/2023 2:55 PM CDT RH LABORATORY Absolute NRBCs 0.0 10e3/uL 04/18/2023 2:55 PM CDT RH LABORATORY Blood BLOOD SPECIMEN / Unknown Venipuncture / Unknown 04/18/2023 2:45 PM CDT 04/18/2023 2:53 PM CDT Heriberto Cantu MD LAB - BLOOD ORDERABL ES [facility] Lab [address] Lab (1st floor, no room number) [place] [address], [facility] [phone] * TSH with free T4 reflex (04/18/2023 2:45 PM CDT) TSH 1.21 0.30 - 4.20 uIU/mL 04/18/2023 3:24 PM CDT RH LABORATORY Blood BLOOD SPECIMEN / Unknown Venipuncture / Unknown 04/18/2023 2:45 PM CDT 04/18/2023 2:53 PM CDT Heriberto Cantu MD LAB - BLOOD ORDERABL ES [facility] Lab [address] Lab (1st floor, no room number) [place] [address], [facility] [phone] * Magnesium (04/18/2023 2:45 PM CDT) Magnesium 2.0 1.7 - 2.3 mg/dL 04/18/2023 3:19 PM CDT RH LABORATORY Blood BLOOD SPECIMEN / Unknown Venipuncture / Unknown 04/18/2023 2:45 PM CDT 04/18/2023 2:53 PM CDT Heriberto Cantu MD LAB - BLOOD ORDERABL ES LABORATORY [facility] Acute Care Lab [address] Lab (1st floor, no room number) [place] [address], [facility] [phone] * Basic metabolic panel (04/18/2023 2:45 PM CDT) [facility] Sodium 140 136 - 145 mmol/L 04/18/2023 3:19 PM CDT LABORATORY Potassium 3.9 3.4 - 5.3 mmol/L 04/18/2023 3:19 PM CDT LABORATORY Chloride 106 98 - 107 mmol/L 04/18/2023 3:19 PM CDT LABORATORY Carbon Dioxide (CO2) 23 22 - 29 mmol/L 04/18/2023 3:19 PM CDT LABORATORY Anion Gap 11 7 - 15 mmol/L 04/18/2023 3:19 PM CDT LABORATORY Urea Nitrogen 13.1 8.0 - 23.0 mg/dL 04/18/2023 3:19 PM CDT LABORATORY Creatinine 0.96 0.67 - 1.17 mg/dL 04/18/2023 3:19 PM CDT LABORATORY Calcium 9.6 8.8 - 10.2 mg/dL 04/18/2023 3:19 PM CDT LABORATORY Glucose 87 70 - 99 mg/dL 04/18/2023 3:19 PM CDT LABORATORY GFR Estimate 88 >60 mL/min/1.7 3m2 04/18/2023 3:19 PM CDT LABORATORY Blood BLOOD SPECIMEN / Unknown Venipuncture / Unknown 04/18/2023 2:45 PM CDT 04/18/2023 2:53 PM CDT Heriberto Cantu MD LAB - BLOOD ORDERABL ES LABORATORY [facility] Acute Care Lab [address] Lab (1st floor, no room number) [place] [address], [place] [phone] * (ABNORMAL) Glucose by meter (04/18/2023 12:48 PM CDT) GLUCOSE BY METER POCT 136(H) 70 - 99 mg/dL 04/18/2023 12:55 PM CDT RH LABORATORY POC Blood, Capillary BLOOD SPECIMEN / Unknown 04/18/2023 12:48 PM CDT 04/18/2023 12:55 PM CDT Provider Unknown LAB - BEAKER POCT RH LABORATORY POC [facility] Acute Care Lab [address] [facility] Lab (1st floor, no room number) [place] [address], [facility] [phone] documented in this encounter Visit Diagnoses Diagnosis Hypoglycemia Hypoglycemia, unspecified Insulin dependent type 2 diabetes mellitus (H) Type II or unspecified type diabetes mellitus without mention of complication, not stated as uncontrolled documented in this encounter Active and Recently Administered Medications Care Teams Ccnp Relationship Specialty Start Date End Date Clinic, Amina Chavez [address] [place] [address] [place] [address] PCP - General 12/09/21 documented as of this encounter
--- OUTSIDE RECORDS SUMMARY | 2023-10-06 19:40 | XMS_ITS | Encounter Summary ---
Author Name Unknown Organization [facility] [place] Address [facility] [place] [address] Care Team Providers Care Golf Ball Molder Name Role Phone [facility] Bernadette Primary Care Provider + Amina Thurman Primary Care Provider [phone] Encounter Details Date Type Department Care Team (Late st Contact Info) Description 10/07/2021 Documentation Only INTERFACED REPORT Unknown, Provider Social [...] or suspected to have Coronavirus / COVID-19? Yes 09/24/2021 8:47 PM DOCTOR OF DENTAL MEDICINE documented as of this encounter Plan of Treatment Not on file documented as of this encounter Visit Diagnoses Not on filedocumented in this encounter Care Teams Golf Ball Molder Relationship Specialty Start Date End Date [facility], [facility] [address] [place] [address] PCP - General 02/19/19 12/08/21 Amina Thurman [address] [place] [phone] PCP - General 12/09/21 documented as of this encounter
--- OUTSIDE RECORDS SUMMARY | 2023-10-06 19:40 | XMS_ITS | Encounter Summary ---
Author Name Unknown Organization [facility] Address [address] [place] [id number] Care Team Providers Care Damage Cutter Name Role Phone Rachid Del Cid MD Primary Care Provider Kareem Monroe MD Primary Care Provider Neel flores No Ref-Primary, Physician Primary Care Provider Lourdes Pereyra MD Primary Care Provider Shelli Thomas MD Primary Care Provider + Clinic, Amina Fleming Primary Care Provider + Clinic, Amina Chavez Primary Care Provider [phone] Reason for Visit * Reason Onset Date Comments Nurse Advice Line 09/20/2011 Encounter Details Date Type Department Care Team (Late st Contact Info) Description 09/20/2011 Telephone [facility] DEPT FOR CCW Rachid Del Cid MD XXXX RESIGNED/INACTIVE XXXX Nurse Advice Line Social History Tobacco Use Types Packs/Day Years Used Date Smoking Tobacco: Never Smokeless Tobacco: Never Alcohol Use Standard Drinks/Week Comments No 0 (1 standard drink = 0.6 oz pur e alcohol) occ Sex and Gender Information Value Date Recorded Sex Assigned at Not on file Gender Identity Not on file Sexual Orientation Not on file documented as of this encounter Miscellaneous Notes * Telephone Encounter - Albina Fu - 09/20/2011 6:03 AM CST [facility] Triage Call Report Patient Name: Kev Ulmen Call Date & Time: 09/13/2011 7:36:25PM Patient PCP Name: Rachid Cervantes MRN: Patient [address]: [address] [place] [address] Patient Date of : 1960 Age: 51 yr. 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 . Had vertigo 3 years ago and it lasted 6 weeks, having similar sx, feeling dizzy quique if he gets up too fast. Seen in ER on 09/06 for kidney stone. Triage Note: Ethanol Operator Nati Chávez ([facility]) added this note on Sep 13 2011 7:55PM:Advised to be seen in [facility], agreeable to plan, states he will have friend drive him to [facility] ER. Advised to call [phone] if he feels he can't safely walk. Guideline Title: Dizziness / Vertigo Recommended Disposition: Override Disposition: See Provider within 4 hours See ED Immediately Question Response Question Note Unconscious No New or worsening signs and symptoms that may indicate No shock Chest pain/discomfort for more than 5 minutes, now or No within last hour Severe breathing problems No New paralysis (unable to move); new weakness (not due to No pain); new loss of coordination (purposeful action) OR new unexplained numbness/tingling involving arm and leg on same side of body History of stroke OR transient ischemic attack (TIA) No AND symptoms are similar Sudden onset of worst headache of my life No New seizure now or within last 6 hours No Vomiting red, bloody or coffee-ground material, more than No streaks of blood or scant amount (not following nosebleed within past day) Passing red, black or tarry material from rectum AND No onset of new signs and symptoms of hypovolemia Profuse vaginal bleeding not contained by pads or tampons No Unbearable abdominal/pelvic pain No Trauma from high-energy mechanism No Any other GI bleeding No Unusual vaginal bleeding occurring at times other than No regular menses Signs of dehydration No New onset loss of hearing (including ringing in the ears) No Abruptly stopped or decreased dose of corticosteroids No Having sensations of turning or spinning that affects Yes balance AND not responsive to 4 hours of home care Physician Contacted: Physician Instructions: No Care Advice: - Avoid movements that cause symptoms. MEDICAL HISTORY Conditions: Condition Note: .Other migraine headaches Depression .Other kidney stones= 15yrs Medication: Medication Note: .Denies Percocet and nausea Rx for kidney stone. .Denies .Denies .Denies .Denies Allergy: Reaction: .Denies .None .Denies .None Procedure: Procedure Note: .Other Kidney Stones at age 29 .Other hemorrhoid surgery .Other kidney stents for stones. 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 documented in this encounter Plan of Treatment Not on file documented as of this encounter Visit Diagnoses Not on filedocumented in this encounter Additional Health Concerns Infection Onset Date Last Indicated Resolved Time Rule Out COVID-19 08/01/2021 08/01/2021 08/02/2021 12:31 PM GAS STOVE SERVICER HELPER Rule Out COVID-19 08/23/2021 08/23/2021 08/23/2021 10:19 PM GAS STOVE SERVICER HELPER Rule Out COVID-19 08/28/2021 08/28/2021 08/28/2021 8:11 PM GAS STOVE SERVICER HELPER Influenza 08/28/2021 08/28/2021 09/04/2021 11:3 9 PM GAS STOVE SERVICER HELPER documented as of this encounter Care Teams Damage Cutter Relationship Specialty Start Date End Date Rachid Del Cid MD PCP - General Family Practice 03/25/11 09/08/12 Kareem Diaz MD PCP - General Urology 09/09/12 04/24/13 No Ref-Primary, Physician PCP - General 04/25/13 03/25/14 Lourdes Pereyra MD PCP - General Family Practice 03/26/14 05/11/18 Shelli Montano MD [address] [id number] PCP - General Family Practice 05/12/18 02/18/[address] [address] PCP - General 02/19/19 12/08/21 Clinic, Amina Chavez [address] [place], [place] [address] [id number] PCP - General 12/09/21 documented as of this encounter
--- OUTSIDE RECORDS SUMMARY | 2023-10-06 19:40 | XMS_ITS | Encounter Summary ---
Author Name Unknown Organization [facility] Address [address] [place] [address] Care Team Providers Care Tool And Fixture Repairer Name Role Phone Amina Thurman Primary Care Provider [phone] Encounter Details Date Type Department Care Team (Late st Contact Info) Description 12/10/2021 Documentation Only INTERFACED REPORT Unknown, Provider Social [...] suspected to have Coronavirus/COVID-19? No / Unsure 12/09/2021 3:58 PM CDT documented as of this encounter Plan of Treatment Not on file documented as of this encounter Visit Diagnoses Not on filedocumented in this encounter Care Teams Tool And Fixture Repairer Relationship Specialty Start Date End Date Amina Thurman [address] [facility] [id number] PCP - General 12/09/21 documented as of this encounter
--- OUTSIDE RECORDS SUMMARY | 2023-10-06 19:40 | XMS_ITS | Referral Summary ---
Author Name Unknown Organization [facility] Address [address] [place] [address] Care Team Providers Care Welding Machine Operator Name Role Phone Clinic, Amina Chavez Primary [...] adjuvanted (SHINGRIX) 018,03/06/2018 Zoster vaccine, live 03/23/2016 Social History Tobacco Use Types Packs/Day Years [...] 165.1 cm (5' 5) 10/19/2021 3:05 PM METAL MODEL BUILDER Body Mass Index 23.74 10/19/2021 3:05 PM METAL MODEL BUILDER Plan of Treatment Not on file Care Teams Welding Machine Operator Relationship Specialty Start Date End Date Clinic, Amina Chavez [address] [place] [address] [place] [address] PCP - General 12/09/21
--- OUTSIDE RECORDS SUMMARY | 2023-10-06 19:40 | XMS_ITS | Clinical Summary ---
Author Name Unknown Organization [facility] Address [place], [place] [address] Care Team Providers Care Dermatology Physician Assistant Name Role Phone Christian Arenas DO Primary Care Provide r Allergies Active Allergy Reactions Criticality Noted Date Comments Atorvastatin Myalgia Low 06/08/2018 Onset of myalgia two days after starting medication Oxycodone Nausea Only,Other - Describe In Comment Field Unknown 12/05/2013 I don't care for it Medications Medication Sig Dispensed Refills Start Date End Date Status pantoprazole (PROTONIX) 40 mg delayed-release tablet Take 40 mg by mouth once daily. 0 Active sucralfate (CARAFATE) 100 mg/mL suspension Take 1 g by mouth once daily. Take on empty stomach. 0 Active cyanocobalamin (VITAMIN B12) 1,000 mcg tablet Take 1,000 mcg by mouth once daily. 0 Active cyclobenzaprine (FLEXERIL) 5 mg tabletIndications:Ne ck pain, acute Take 1 Tablet (5 mg) by mouth 3 times daily if needed for Muscle Spasm. MAY CAUSE DROWSINESS 30 Tablet 1 01/06/2023 Active FreeStyle Ce 3 Sensor for continuous blood glucose monitor (CGM)Indications:Typ e 2 diabetes mellitus with hyperglycemia, without long-term current use of insulin (HC) To be used to read blood sugars, follow human resources analyst directions. Apply every 14 days. 9 Each 3 01/11/2023 Active semaglutide (Ozempic) 1 mg/dose (4 mg/3 mL) penIndications:Type 2 diabetes mellitus with hyperglycemia, without long-term current use of insulin (HC) Inject 1 mg subcutaneous once weekly. 9 mL 3 01/11/2023 Active Lantus Solostar U-100 Insulin 100 unit/mL (3 mL) penIndications:Type 2 diabetes mellitus with hyperglycemia, without long-term current use of insulin (HC) Inject 12 units subcutaneous before bedtime. 15 mL 4 01/11/2023 Active UltiCare Pen Needle 32 gauge x 5/32Indications:Typ e 2 diabetes mellitus with hyperglycemia, without long-term current use of insulin (HC) Inject subcutaneous. Remove the 2 covers on the insulin pen needle before administering insulin dose. 100 Each 4 01/11/2023 Active cholecalciferol (Vitamin D) 1,000 unit tabletIndications:Vi tamin D deficiency Take 1 Tablet (1,000 units) by mouth once daily. 90 Tablet 4 01/11/2023 Active HYDROcodone-acetamin ophen ([place]) 5-325 mg per tabletIndications:Ac cher-ae heights right-sided low back pain without sciatica Take 1 Tablet by mouth every 6 hours if needed for Pain. Max acetaminophen dose: 4000 mg in 24 hrs. 15 Tablet 0 05/31/2023 Active naproxen (NAPROSYN) 500 mg tabletIndications:Ac cher-ae heights right-sided low back pain without sciatica Take 1 Tablet (500 mg) by mouth every 12 hours if needed for Pain. 30 Tablet 0 05/31/2023 Active ondansetron (ZOFRAN ODT) 4 mg disintegrating tabletIndications:Na usea Place 1 Tablet (4 mg) on the tongue every 8 hours if needed for Nausea/Vomiting. 10 Tablet 0 05/31/2023 Active Active Problems Patient Care Coordination No te Formatting of this note migh t be different from the original. Family is what matters most to Kev. He has 3 adult children and two teenage step children and one young grandson Kev would like his care team to know he is a very busy person with work. He is in the [employer] business. What are Kev's challenges, stressors, or barriers? 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 He also has freq bouts with kidney stones so is never really sure when it will happen. Problem Noted Date Diagnosed Date Nuclear senile cataract of both eyes 08/12/2022 Type 2 diabetes mellitus wit h hyperglycemia, without long-term current use of insulin 09/30/2021 Hepatic steatosis 08/12/2020 Thrombosis superficial vein, arm, acute, left History of DVT (deep vein thrombosis) 06/14/2018 History of gastric ulcer 09/12/2017 Overview: 5 seen on EGD 1.2015 Presbyopia 07/30/2017 Hypermetropia of both eyes 07/30/2017 Esophagitis, reflux 07/20/2014 Hypertension 12/19/2013 Nephrolithiasis 12/05/2013 Anxiety Resolved Problems Problem Noted Date Diagnosed Date Resolved Date Nephrolithiasis 08/31/2022 09/07/2022 Anticoagulation monitoring, INR range 2-3 [Z79.01] 06/15/2018 08/12/2020 Controlled type 2 diabetes m ellitus without complication, without long-term current use of insulin 12/30/2017 10/08/2021 Persistent cough for 3 weeks or longer 12/22/2017 08/12/2020 Controlled type 2 diabetes m ellitus without complication, without long-term current use of insulin 03/01/2017 12/30/2017 Overview: Diagnosis 02/2017 CD (contact dermatitis) 03/25/201107/30 Duodenitis 08/12/2020 Epigastric abdominal pain Immunizations Name Administration Dates Next Due COVID-19 vaccine (Moderna 100mcg/0.5mL) PF, MDV 12/04/2020,11/06/2020 Influenza RIV4 (Age 18+ Year s) PRESERV FREE 06/15/2021 Influenza Virus, Unspecified 06/07/2020 Influenza, IIV4 07/01/2022, 9,06/13/2018,2016 Pneumococcal Conj 20-valent (Prevnar 20) 01/18/2022 Pneumococcal Poly,23-Valent (Pneumovax) 04/01/2018 Td (Age >=7 Years) 07/16/2017 Tdap 09/18/2005 Zoster (Shingrix-RZV, recombinant) 05/29/2018, Zoster (Zostavax-ZVL, live) 03/23/2016 Family History Medical History Relation Name Comments Other Daughter galactosemia Psychiatric illness Maternal Grandmother suicide at 30 Unknown Mother myelodysplastic syndrome? Relation Name Status Comments Daughter Father Maternal Grandmother Mother Alive Social History Tobacco Use Types Packs/Day Years Used Date Smoking Tobacco: Never Passive Smoke Exposure: Past Smokeless Tobacco: Never Tobacco Cessation:Counseling Given: Not Answered Alcohol Use Standard Drinks/Week Comments Not Currently 0 (1 standard drink = 0.6 oz pur e alcohol) minimal PHQ-2 Answer Date Recorded PHQ-2 TOTAL SCORE 2 11/11/2022 Social Connections Answer Date Recorded Frequency of Communication with Friends and Fami ly Not on file 12/26/2022 Financial Resource Strain Answer Date R ecorded Difficulty of Paying Living Expenses 3 12/18/2021 Difficulty of Paying Living Expenses Not on file 12/18/2021 Food Insecurity Answer Date Recorded Worried About Running Out of Food in the Last Ye ar 1 12/18/2021 Transportation Needs Answer Date Record ed Lack of Transportation (Medical) 1 12/18/2021 Housing Stability Answer Date Recorded Unable to Pay for Housing in the Last Year 1 12/18/2021 Sex and Gender Information Value Date Recorded Sex Assigned at Male 12/18/2021 1:20 PM CDT Gender Identity Male 12/18/2021 1:20 PM CDT Sexual Orientation Straight 12/18/2021 1: 20 PM CDT Obstetrics History Last Filed Vital Signs Vital Sign Reading Time Taken Comments Blood Pressure 141/68 05/31/2023 10:09 PM CDT Pulse 70 05/31/2023 10:09 PM CDT Temperature 36.7 ??C (98.1 ??F) 05/31/2023 8:27 PM CD T Respiratory Rate 17 05/31/2023 10:09 PM CDT Oxygen Saturation 96% 05/31/2023 10:09 PM CDT Inhaled Oxygen Concentration - - Weight 62.6 kg (138 lb) 05/31/2023 8:27 PM CDT Height 165.1 cm (5' 5) 05/31/2023 8:27 PM CDT Body Mass Index 22.96 05/31/2023 8:27 PM CDT Plan of Treatment Upcoming Encounters Date Type Department Care Team (Late st Contact Info) Description 11/08/2023 12:15 PM CDT Office Visit [facility] [address] [facility] [address] [place] [address] Tye Jordan MD [address] [facility] [address] [place] [address] Health Maintenance Due Date Last Done Comments HIV for age 15-65 1973 Fecal testing non-DNA (FIT,FOBT,iFOBT) for age 45-75 12/01/2022 12/01/2021 COVID-19 vaccine series (2022- season) 2023 07/01/2022, 12/04/2020, 11/06/2020 Influenza for age 65+ 2023 07/01/2022 , 06/15/2021, 06/07/2020, Additional history exists Medicare Wellness for age 65+ 2023 Depression screening for age 12+ 11/13/2023 11/12/2022, 09/07/2022, 09/07/2022, Additional history exists BMI (ht and wt on same day) for age 18+ 01/12/2024 01/11/2023, 11/24/2022, 09/07/2022, Additional history exists Tetanus booster 07/16/2027 07/16/2017, 09/18/2005 Lipids for age 45-75 01/12/2028 01/11/2023, 12/30/2021, 11/06/2020, Additional history exists Tdap Completed 09/18/2005 Hepatitis C screening for ag e 18-79 Completed 12/05/2013 Zoster (shingles) series for age 50+ Completed 05/29/2018, 03/06/2018, 03/23/2016 Pneumococcal series for age 65+ Completed , 04/01/2018 Goals Goal Patient Goal Type Associated Problems Recent Progress Patient-Stated? Author BLOOD PRESSURE - MAINTAINS BP less than 140/90 Blood Pressure No UtechLourdes MD Advance Directives Latest Code Status on File Code Status Date Activated Date Inactivated Comments Full Code 08/31/2022 6:31 PM 09/01/2022 4:57 PM Question Answer Comments Code Status Discussion: Reviewed Preferences Code Status History Code Status Date Activated Date Inactivated Comments Full Code 08/10/2017 1:29 PM 08/10/2017 6:21 PM Full Code 09/28/2016 9:39 AM 09/28/2016 2:39 PM Full Code 03/12/2016 8:36 AM 03/12/2016 12:25 PM Full Code 09/23/2015 10:32 AM 09/23/2015 2:03 PM Question Answer Comments Code Status Discussion: Not Discussed Care Teams Dermatology Physician Assistant Relationship Specialty Start Date End Date Christian Arenas DO [address] [address] PCP - General Family Practice 1/2/23
--- OUTSIDE RECORDS SUMMARY | 2023-10-06 19:41 | XMS_ITS | Data Portability ---
Author Name Unknown Address [address] [place] [address] Phone [phone] Organization [facility] Address [address] [place] [address] Care Team Providers Care Nuclear Spectroscopist Name Role Phone CECE GUEVARA Primary Care Provider [phone] Assessment Encounter Date Assessment Date Assessment LastModified by Organization Details LastModified Time 09/14/2022 09/14/2022 62 year old male with a history of nephrolithias is. Not available 09/13/2022 20:40:43 Plan of Treatment Reminders Order Date Submit Date Provider Last Modified By Organization Details Last Modified Time Details Appointments None recorded. Lab urinalysis , dipstick 2022 023 [facility], [address], [address], [place], [address], 3 11:54:45 unlisted lab - stone blood 2022 023 [facility], [address], [address], [place], [address], 3 14:13:00 Referral None recorded. Procedures None recorded. Surgeries None recorded. Imaging CT, abdomen + pelvis, w/o contrast - Please call to schedule 2022 023 [facility], [address], [address], [place], [address], 3 13:15:30 Medication Orders None recorded. Patient TargetsNo targets recorded. Patient Instructions Encounter Date Encounter Id Patient Instructions Last Modified By Organization Details Last Modified Time 09/14/2022 [id number] Kidney Stones: He is a repeat stone former and to date the etiology of why this is is still unclear. I strongly recommend metabolic evaluation. We will check a set of serum electrolytes with calcium and uric acid today. He will complete a 24 hour urine collection this week. His pain is better, but perhaps not totally resolved. I recommend we check a low dose CT to ensure he has passed all of his ureteral stones. Not available 09/14/2022 11:39:02 Reason for Referral None Reported. Results Created Date Observation Date Name Description Value Unit Range Abnormal Flag LastModifiedBy Organization Detail LastModifiedTime 09/14/1909/14/2022 UA DIP CS STATU S+ color -advantus yellow yellow Not Available [facility] [address] [place] [address] [address], [place], [address], 09/14/2022 11:54:45 09/14/19 23 09/14/2022 UA DIP CS STATU S+ appearance -advantus clear clear Not Available [facility] [address] [place] [address] [address], [place], [address], 09/14/2022 11:54:45 09/14/19 23 09/14/2022 UA DIP CS STATU S+ glucose -advantus 250 mg/dL negati ve abnormal Not Available [facility] [address] [place] [address] [address], [place], [address], 09/14/2022 11:54:45 09/14/19 23 09/14/2022 UA DIP CS STATU S+ bilirubin -advantus negati ve negati ve Not Available [facility] [address] [place] [address] [address], [place], [address], 09/14/2022 11:54:45 09/14/19 23 09/14/2022 UA DIP CS STATU S+ ketones -advantus negati ve mg/dL negati ve Not Available [facility] [address] [place] [address] [address], [place], [address], 09/14/2022 11:54:45 09/14/19 23 09/14/2022 UA DIP CS STATU S+ sp. gravity -advantus 1.025 1.010- 1.025 Not Available [facility] [address] [facility] [address], [place], [address], 09/14/2022 11:54:45 09/14/19 23 09/14/2022 UA DIP CS STATU S+ pH -advantus 5.5 5.0-8. 0 Not Available [facility] [address] [facility] [address], [place], [address], 09/14/2022 11:54:45 09/14/19 23 09/14/2022 UA DIP CS STATU S+ protein -advantus negati ve mg/dL negati ve Not Available [facility] [address] [facility] [address], [place], [address], 09/14/2022 11:54:45 09/14/19 23 09/14/2022 UA DIP CS STATU S+ urobilinogen -advantus 0.2 0.2 E.U./d L Not Available [facility] [address] [facility] [address], [place], [address], 09/14/2022 11:54:45 09/14/19 23 09/14/2022 UA DIP CS STATU S+ nitrites -advantus negati ve negati ve Not Available [facility] [address] [facility] [address], [place], [address], 09/14/2022 11:54:45 09/14/19 23 09/14/2022 UA DIP CS STATU S+ blood -advantus negati ve negati ve Not Available [facility] [address] [facility] [address], [place], [address], 09/14/2022 11:54:45 09/14/19 23 09/14/2022 UA DIP CS STATU S+ leukocytes -advantus negati ve negati ve Not Available [facility] [address] [facility] [address], [place], [address], 09/14/2022 11:54:45 09/14/19 23 09/14/2022 UA DIP CS STATU S+ performed by julienne Gifford Not Available [facility] [address] [facility] [address], [place], [address], 09/14/2022 11:54:45 09/14/19 23 09/14/2022 UA DIP CS STATU S+ total urine volume (mL) 30 /mL Not Available [facility] [address] [facility] [address], [place], [address], 09/14/2022 11:54:45 09/14/19 23 09/14/2022 STONE BLOOD Na 140.0 mmol/ L 135.0- 145.0 Not Available [facility] [address] [facility] [address], [place], [address], 09/14/2022 14:13:00 09/14/19 23 09/14/2022 STONE BLOOD potassium 4.2 mmol/ L 3.6-5. 0 Not Available [facility] [address] [facility] [address], [place], [address], 09/14/2022 14:13:00 09/14/19 23 09/14/2022 STONE BLOOD chloride 106.0 mmol/ L 101.0- 111.0 Not Available [facility] [address] [facility] [address], [place], [address], 09/14/2022 14:13:00 09/14/19 23 09/14/2022 STONE BLOOD CO2 28.0 mmol/ L 21.0-3 1.0 Not Available [facility] [address] [facility] [address], [place], [address], 09/14/2022 14:13:00 09/14/19 23 09/14/2022 STONE BLOOD aniongap 6.00 0.00-1 6.00 Not Available [facility] [address] [facility] [address], [place], [address], 09/14/2022 14:13:00 09/14/19 23 09/14/2022 STONE BLOOD glu 168.40 mg/dL 70.00- 105.00 high Not Available [facility] [address] [facility] [address], [place], [address], 09/14/2022 14:13:00 09/14/19 23 09/14/2022 STONE BLOOD Ca 8.9 mg/dL 8.4-10 .2 Not Available [facility] [address] [facility] [address], [place], [address], 09/14/2022 14:13:00 09/14/19 23 09/14/2022 STONE BLOOD mg 1.8 mg/dL 1.7-2. 8 Not Available [facility] [address] [facility] [address], [place], [address], 09/14/2022 14:13:00 09/14/19 23 09/14/2022 STONE BLOOD phosphorus 2.1 mg/dL 2.5-4. 6 low Not Available [facility] [address] [facility] [address], [place], [address], 09/14/2022 14:13:00 09/14/1909/14/2022 STONE BLOOD uric acid 4.1 mg/dL 2.6-7. 2 Not Available [facility] [address] [facility] [address], [place], [address], 09/14/2022 14:13:00 09/14/1909/14/2022 STONE BLOOD BUN 17.0 mg/dL 7.0-18 .0 Not Available [facility] [address] [facility] [address], [place], [address], 09/14/2022 14:13:00 09/14/19 23 09/14/2022 STONE BLOOD BUN/creat 17.9 ratio 9.0-20 .0 Not Available [facility] [address] [facility] [address], [place], [address], 09/14/2022 14:13:00 09/14/19 23 09/14/2022 STONE BLOOD creatinine 1.0 mg/dL 0.6-1. 3 Not Available [facility] [address] [facility] [address], [place], [address], 09/14/2022 14:13:00 09/14/19 23 09/14/2022 STONE BLOOD eGFR >60 mL/mi n_per _1.73 90-120 Not Available [facility] [address] [facility] [address], [place], [address], 09/14/2022 14:13:00 09/11/19 23 09/01/2022 XR, abdom en, 1 view No observ ation record ed. Not Available 09/11/2022 15:35:10 09/16/19 23 09/16/2022 CT, abdom en + pelvi s, w/o contr ast No observ ation record ed. [facility] [place] [address] [facility] [address], [place], [address], 09/16/2022 17:51:08 Result Notes None recorded. Problems Name Status Onset Date Resolution Date Notes Provider Name and Address Organization Details Recorded Time Kidney stone Active 023 Prasanth Meath null, [facility] 08/02/2023 10:43:18 Hypertensive disorder Active 023 Prasanth Meath null, [facility] 08/02/2023 10:44:40 Type 2 diabetes mellitus Active 023 Prasanth Meath null, [facility] 08/02/2023 10:44:48 Gastroesophageal reflux disease Active 023 Prasanth Meath null, [facility] 08/02/2023 10:44:56 Anxiety Active 023 Prasanth Meath null, [facility] 08/02/2023 10:45:06 Problem Notes None recorded. Procedures Surgical History Date Name Laterality Status Provider Name and Address Organization Details Recorded Time 3 Blood Draw/PRACTICE BUSINESS ASST/PSA RESULTS completed Ania Alexis null, [facility] 09/14/2022 11:43:30 2 [facility] 10:44:08 Imaging Results Imaging Date Name Status LastModified by Organiz ation Details LastModified Time 09/01/2022 XR, abdomen, 1 view completed [email or web address] [id number] Information not available 09/11/2022 15:35:10 09/16/2022 CT, abdomen + pelvis, w/o contrast completed [place] [id number] [facility] [place] [address], [place], [address], 09/16/2022 17:51:08 Procedure Notes None recorded. Medical Equipment None Reported. Allergies No known drug allergies Medications Name Sig Start Date Stop Date Status Note LastModified by Organization Details LastModified Time hydrocodone 5 mg-acetamin ophen 325 mg tablet TAKE ONE TABLET BY MOUTH EVERY SIX HOURS NEEDED FOR PAIN. MAX ACETAMINO PHEN DOSE 4000MG/24 HRS. 08/02 completed Not Available Not Available Not Available sucralfate 100 mg/mL oral suspension Take 10 ml (1 gram) by mouth once daily. 08/02 completed Not Available Not Available Not Available sucralfate 1 gram tablet TAKE ONE TABLET BY MOUTH TWICE DAILY 08/02 completed Not Available Not Available Not Available cyanocobala min (vit B-12) 1,000 mcg tablet TAKE 1 TABLET BY MOUTH DAILY FOR LOW B12 active Not Available Not Available No t Available tramadol 50 mg tablet Take 1 tablet by mouth every 6 hours as needed for kidney stone pain. active Not Available Not Available No t Available ondansetron 8 mg disintegrat ing tablet DISSOLVE ONE TABLET IN MOUTH EVERY EIGHT HOURS NEEDED FOR NAUSEA/VO MITING 08/02 completed Not Available Not Available Not Available methocarbam ol 750 mg tablet TAKE 1-2 TABLETS BY MOUTH EVERY 6 HOURS NEEDED FOR MUSCLE SPASMS. active Not Available Not Available No t Available tamsulosin 0.4 mg capsule take 1 capsule by mouth once daily for up to 30 days for kidney stone active Not Available Not Available No t Available cephalexin 500 mg capsule Take 1 Capsule (500 mg) by mouth 4 times daily for 7 days. 08/02 completed Not Available Not Available Not Available pantoprazol e 40 mg tablet,adrián yed release take 1 tablet by mouth once daily 30-60 minutes before your first meal of the day active Not Available Not Available No t Available oxycodone 5 mg tablet Take 1 to 2 tablets (5-10 mg) by mouth every 6 hours as needed for kidney stone pain 08/02 completed Not Available Not Available Not Available escitalopra m 10 mg tablet TAKE ? TABLET BY MOUTH DAILY FOR 1 WEEK AND THEN INCREASE TO 1 TABLET DAILY THEREAFTE R active Not Available Not Available No t Available Flovent HFA 110 mcg/actuati on aerosol inhaler active Not Available Not Available Not Available cholecalcif geovanny (vitamin D3) 1,250 mcg (50,000 unit) capsule TAKE 1 CAPSULE BY MOUTH ONCE PER WEEK FOR 12 WEEKS AND ONCE COMPLETE, START 2000 UNITS VITAMIN D DAILY (SEPARATE PRESCRIPT ION) FOR LOW VITAM active Not Available Not Available No t Available Lantus Solostar U-100 Insulin 100 unit/mL (3 mL) subcutaneou s pen Inject 12 units subcutane ous once daily active Not Available Not Available No t Available oxycodone 10 mg tablet Take 0.5 TO 1 (5-10 mg) every 6 hours as needed for kidney stone pain 08/02 completed Not Available Not Available Not Available UltiCare Pen Needle 32 gauge x use to inject daily active Not Available Not Available No t Available Victoza 2-Percy 0.6 mg/0.1 mL (18 mg/3 mL) subcutaneou s pen injector INJECT 0.6 MG SUBCUTANE OUSLY ONCE DAILY. active Not Available Not Available No t Available Invokana 300 mg tablet TAKE 1 TABLET BY MOUTH DAILY active Not Available Not Available No t Available Ozempic 0.25 mg or 0.5 mg (2 mg/1.5 mL) subcutaneou s pen injector Inject 0.5 mg subcutane ous once weekly. active Not Available Not Available No t Available FreeStyle Ce 14 Day Sensor kit change every 14 days active Not Available Not Available No t Available Vitals Date Recorded Body height Body mass index (BMI) Body weight Provider Name and Address Organization Details Last Updated DateTime 09/14/2022 162.56 cm 25.4 kg/m2 51011.67 [facility] 11:31:36 Social History Question Answer Notes LastModified by Organizat ion Details LastModified Time Tobacco Smoking Status Never Smoker Laura regan [facility] 09/14/2022 11:33:46 What Is Your Level Of Alcohol Consumption? Occasional Information not available 09/14/2022 What Is Your Level Of Caffeine Consumption? Occasional Information not available 09/14/2022 What Was The Date Of Your Most Recent Tobacco Screening? 09/14/2022 Information not available 09/14/2022 Sex: Male Functional Status None recorded. Mental Status None recorded. Family History Nothing Reported. Medical History No medical history recorded. Immunizations Vaccine Type Date Status Provider Name and Address Organization Details Recorded Time influenza, recombinant, quadrivalent,injecta ble, preservative free 06/15/2021 completed Prasanth Meath null, [facility] 05/10/2023 11:36:37 zoster recombinant 03/06/2018 [facility] 11:36:37 zoster recombinant 05/29/2018 completed Prasanth Meath [facility] 05/10/2023 11:36:37 COVID-19, mRNA, LNP-S, PF, 100 mcg/0.5mL dose or 50 mcg/0.25mL dose 11/06/2020 completed Prasanth Meath null, [facility] 05/10/2023 11:36:37 COVID-19, mRNA, LNP-S, PF, 100 mcg/0.5mL dose or 50 mcg/0.25mL dose 12/04/2020 completed Prasanth Meath null, [facility] 05/10/2023 11:36:37 COVID-19, mRNA, LNP-S, PF, 100 mcg/0.5mL dose or 50 mcg/0.25mL dose 01/18/2022 [facility]10[facility] 11:36:37 COVID-19, mRNA, LNP-S, PF, 100 mcg/0.5mL dose or 50 mcg/0.25mL dose 06/20/2021 completed Prasanth Meath null, [facility] 05/10/2023 11:36:37 Pneumococcal conjugate PCV20, polysaccharide ULQ142 conjugate, adjuvant, PF 01/18/2022 completed Prasanth Meath null, [facility] 05/10/2023 11:36:37 COVID-19, mRNA, LNP-S, bivalent, PF, 50 mcg/0.5 mL or 25mcg/0.25 mL dose 07/01/2022 completed Prasanth Meath null, [facility] 05/10/2023 11:36:37 pneumococcal polysaccharide PPV23 04/01/2018 completed Prasanth Meath null, [facility] 05/10/2023 11:36:37 zoster live 03/23/2016 completed Prasanth Meath null, [facility] 05/10/2023 11:36:37 Td (adult), 2 Lf tetanus toxoid, preservative free, adsorbed 07/16/2017 completed Prasanth Meath null, [facility] 05/10/2023 11:36:37 influenza, injectable, quadrivalent, preservative free 06/07/2020 completed Prasanth Meath null, [facility] 05/10/2023 11:36:37 influenza, injectable, quadrivalent, preservative free 06/13/2018 completed Prasanth Meath null, [facility] 05/10/2023 11:36:37 influenza, injectable, quadrivalent, preservative free 06/20/2019 completed Prasanth Meath null, [facility] 05/10/2023 11:36:37 influenza, injectable, quadrivalent, preservative free 07/01/2022 completed Prasanth Meath null, [facility] 05/10/2023 11:36:37 influenza, injectable, quadrivalent, preservative free 07/16/2017 completed Prasanth Meath null, [facility] 05/10/2023 11:36:37 Past Encounters Encounter ID Performer Location Encounter Start Date Encounter Closed Date Diagnosis/Indication [id number] Ania Caballero_Narciso hart [address] [facility],[address] [place] [address] 09/14/2022 11:26:00 09/14/2022 11:41:49 Kidney stone Health Concerns Section Related Observation LastModified by Organization Willa ls LastModified Time None Recorded Concern Status LastModified by Organization Details LastModified Time None Recorded Advance Directives Directive None Recorded Payers Encounter Date Sequence Insurance Name Policy Number Policy Hager Covered Member ID Hager Member ID Guarantor Name 09/14/2022 1 [facility] ([facility] REPLAC[facility] - HMO) [id number] Kev Yi [id number] Kev Yi Notes Date Note Type Note Provider Name and Address Organization Details Recorded Time 09/14/2022 text/html HPI Notes: This is a 62 year old male who is here for the evaluation and management of nephrolithiasis He has a long-standing history of stone disease. He has passed numerous stones over the last 35 years. He has required intervention for stones in the past, the most recent was around 2007. He recently was evaluated in the Emergency Room for an acute stone episode. He passed several stones shortly thereafter and was discharged home with close follow up. He underwent a KUB on 09/01/2022 which revealed a 3 mm right renal calculus but was otherwise unremarkable. KAVITHA Alford - [facility] 09/14/2022 11:43:33
--- NOTE | 2023-10-07 00:05 | ED.GENADULT ---
HPI - General Adult General Stated complaint: Possible Kidney stones Time Seen by Provider: 10/06/23 19:40 History of Present Illness HPI narrative: This patient left without being seen after ER triage. Discharge Plan Discharge Patient Disposition: Left Without Being Seen
== END 2023-10-06 19:49 | disposition left against medical advice (07) ==
PROVIDERS: Emergency Provider Emergency Medicine
DX: Z53.21 Procedure and treatment not carried out due to patient leaving prior to being seen by health care provider (principal)
CPT/HCPCS: 99281

== ENCOUNTER 2024-09-07 10:51 | Outpatient (RCR) | payer MEDICARE, SELFPAY | END 2025-01-05 23:59 | disposition home or self-care (01) | PROVIDERS: PCP Pediatrics; Visit Provider Pediatrics | DX: I67.82 Cerebral ischemia (principal); Z51.89 Encounter for other specified aftercare | CPT/HCPCS: 97166 ==

== ENCOUNTER 2025-06-04 19:09 | Emergency (ER) | payer MEDICARE, SELFPAY ==
--- OUTSIDE RECORDS SUMMARY | 2025-01-03 01:28 | XMS_ITS | Continuity of Care Document ---
Author Organization [facility] Address [address] [address] [place] [address] Phone Care Team Providers Care Mold Carpenter Name Role Phone Rachid Zazueta MD Unavailable [...] Diagnoses Date Provider Providers Copied on Encounter [facility], [address] [address], [place], [place], [address], [place] tel:[phone] [facility] No Information 5 Min MD Rashid. [address], [id number], [place]. tel:[phone] Offic/outpt E&m Estab Mod-hi 2 [facility], [address] [address], [place], [place], [address], [place] tel:[phone] [facility] GI Symptoms or Concerns (chief complaint) RLQ abdominal painColitisH. pylori infectionGastro esophageal reflux disease with esophagitis without hemorrhage 4 Yokasta Handy. 3001 [facility], [address], [address], [place]. tel:[phone] Referring Provider: Referral Self, USE FOR SELF REFERRALS. [facility], [address] [address], [place], [place], [address], [place] tel:[phone] [facility] No Information 4 Maxime Allan. 3001 [facility], [address], [id number], [place]. tel:[phone] [facility], [address] [address], [place], [address], [place] tel:[phone] [facility] H. pylori infection 4 Jacob Mason. 3001 [facility], [address], [place], [place], [address], [place]. tel:[phone] [facility], [address] [address], [place], [address], [place] tel:[phone] [facility] No Information 4 Angela Masters. 3001 [facility], [facility] 500, [place], [place], [address], [place]. tel:[phone] Referring Provider: Guerrero Sanchez, 3001 [facility] 500, [place], [address] . tel:[phone] Init Hosp-da E&m Mod Severity [facility], [address] [address], [place], [place], [address], [place] tel:[phone] [facility] No Information 4 Tracy Marshall. 3001 [facility], [facility] 500, [place], [place], [address], [place]. tel:[phone] Referring Provider: Guerrero Sanchez, 3001 [facility] 500, [place], [address] . tel:[phone] Offic/outpt E&m Estab Mod-hi 2 [facility], [address] [address], [place], [address], [place] tel:[phone] [facility] GI Symptoms or Concerns (chief complaint) Periumbilical abdominal pain 2 Pb Menard. 3001 [facility], [address], [place], [place], [address], [place]. tel:[phone] Referring Provider: Calvin Phelan MD, [address] [facility] [address], [place], [address]. tel:[phone] [facility], [address] [address], [place], [address], [place] tel:[phone] [facility] No Information 2 Markel Chiu. 3001 [facility], [address], [place], [address], [place]. [phone] [facility], [address] [address], [place], [address], [place] tel:[phone] [facility] No Information 1 Markel Chiu. 3001 [facility], [facility] [address], [place], [address], [place]. tel:[phone] [facility], [address] [address], [place], [address], [place] tel:[phone] [facility] Upper abdominal pain, unspecifiedGast roesophageal reflux disease with esophagitis without hemorrhageDisea se of stomach and duodenum, unspecifiedUppe r abdominal pain, unspecifiedDise ase of stomach and duodenum, unspecified 1 Markel Chiu. 3001 [facility], [address], [address], [place]. tel:[phone] Referring Provider: Referral Self, USE FOR SELF REFERRALS. Established Level 4 [facility], [address] [address], [place], [address], [place] tel:[phone] [facility] GI Symptoms or Concerns (chief complaint) Upper abdominal pain 1 Bruno Jim. 3001 [facility], [facility] 500[place], [place], [address], [place]. tel:[phone] Referring Provider: Referral Self, USE FOR SELF REFERRALS. [facility], [address] [address], [place], [address], [place] tel:[phone] [facility] No Information 1 Neena Dougherty. 3001 [facility], [address], [id number], [place]. tel:[phone] [facility], [address] [address], [place], [address], [place] tel:[phone] [facility] Diarrhea, unspecified 0 Edstrom GABRIELLE Fenton. [address] [place] [address], [id number], [place]. tel:[phone] Referring Provider: Referral Self, USE FOR SELF REFERRALS. Virtual Visit E&M New Low-Mod 20-29 Min [facility], [address] [address], [place], [address], [place] tel:[phone] [facility] GI Symptoms or Concerns (chief complaint) Diarrhea, unspecified typePain of upper abdomen 0 Edstrom GABRIELLE Fenton. [address] [place] [address], [id number], [place]. tel:[phone] Referring Provider: [place], [address] [place], [address]. tel:[phone] [facility], [address] [address], [place], [address], [place] tel:[phone] [facility] No Information 0 Neena Dougherty. [address] [place] [address], [id number], [place]. tel:[phone] Family History Family Member Type Diagnosis Age At Onset Son Problem (finding) Alive and well Daughter Problem (finding) Galactosemia Half brother (M) Problem (finding) Alive and well Half sister (M) Problem (finding) Alive and well Mother Problem (finding) Alive and well Immunizations Vaccine Date Status Comments Influenza, adjuvanted, inactivated, quadrivalent, injectable, preservative free administered Note: [employer] bi-directional interface ; Source: Other Registry SARS-COV-2 [...] Pneumococcal conjugate vacci ne 20-valent (PCV20), polysaccharide [id number] conjugate, adjuvant, preservative free administered Note: MIIC [...] party ID Authoriza tion(s) Medicare NGS MB [id number] Social History Type Description Quantity Date Captured [...] middle of June patient was admitted to [facility] where he started having multiple bloody bowel [...] not. He went to the emergency department [facility] GI Symptoms or Concerns Kev [...] metformin dosing. He has not tried any acqa-bxy-emzptnd medications or identified any alleviating factors to [...] communicate diet changes thereafter-- Safe to use tfcb-mro-jgfraim lidocaine patch-- Safe to consume 1 pill of bvae-ypf-ajulcug IBgard, can also buy online-- Have prescribed [...]
--- OUTSIDE RECORDS SUMMARY | 2025-01-03 01:28 | XMS_ITS | Continuity of Care Document ---
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 [address], [id number], [place]. tel:[phone] Offic/outpt E&m Estab Mod-hi 2 [facility], [address] [address], [place], [place], [address], [place] tel:[phone] [facility] GI Symptoms or Concerns (chief complaint) RLQ abdominal painColitisH. pylori infectionGastro esophageal reflux disease with esophagitis without hemorrhage 4 Yokasta Handy. 3001 [facility], [address], [id number], [place]. tel:[phone] Referring Provider: Referral Self, USE FOR SELF REFERRALS. [facility], [address] [address], [place], [place], [address], [place] tel:[phone] [facility] No Information 4 Maxime Allan. 3001 [facility], [address], [address], [place]. tel:[phone] [facility], [address] [address], [place], [place], [address], [place] tel:[phone] [facility] H. pylori infection 4 Jacob Mason. 3001 [facility], [address], [place], [place], [address], [place]. tel:[phone] [facility], [address] [address], [place], [address], [place] tel:[phone] [facility] No Information 4 Angela Masters. 3001 [facility], [facility] 500, [place], [place], [address], [place]. tel:[phone] Referring Provider: Guerrero Sanchez, 3001 [facility] 500, [place], [address] . tel:[phone] Init Hosp-da E&m Mod Severity [facility], [address] [address], [place], [address], [place] tel:[phone] [facility] No Information 4 Tracy Marshall. 3001 [facility], [facility] 500, [place], [place], [address], [place]. tel:[phone] Referring Provider: Guerrero Sanchez, 3001 [facility] 500, [place], [address] . tel:[phone] Offic/outpt E&m Estab Mod-hi 2 [facility], [address] [address], [place], [address], [place] tel:[phone] [facility] GI Symptoms or Concerns (chief complaint) Periumbilical abdominal pain 2 Pb Menard. 3001 [facility], [address], [place], [place], [address], [place]. tel:[phone] Referring Provider: Calvin Phelan MD, [address] [facility] [address], [place], [address]. tel:[phone] [facility], [address] [address], [place], [address], [place] tel:[phone] [facility] No Information 2 Markel Chiu. 3001 [facility], [address], [place], [address], [place]. [phone] [facility], [address] [address], [place], [address], [place] tel:[phone] [facility] No Information 1 Markel Chiu. 3001 [facility], [facility] [address], [place], [address], [place]. tel:[phone] [facility], [address] [address], [place], [address], [place] tel:[phone] [facility] Upper abdominal pain, unspecifiedGast roesophageal reflux disease with esophagitis without hemorrhageDisea se of stomach and duodenum, unspecifiedUppe r abdominal pain, unspecifiedDise ase of stomach and duodenum, unspecified 1 Markel Chiu. 3001 [facility], [address], [address], [place]. tel:[phone] Referring Provider: Referral Self, USE FOR SELF REFERRALS. Established Level 4 [facility], [address] [address], [place], [address], [place] tel:[phone] [facility] GI Symptoms or Concerns (chief complaint) Upper abdominal pain 1 Bruno Jim. 3001 [facility], [facility] [address], [place], [address], [place]. tel:[phone] Referring Provider: Referral Self, USE FOR SELF REFERRALS. [facility], [address] [address], [place], [address], [place] tel:[phone] [facility] No Information 1 Neena Dougherty. 3001 [facility], [address], [id number], [place]. tel:[phone] [facility], [address] [address], [place], [address], [place] tel:[phone] [facility] Diarrhea, unspecified 0 Edstrom GABRIELLE Fenton. [address] [place] [address], [id number], [place]. tel:[phone] Referring Provider: Referral Self, USE FOR SELF REFERRALS. Virtual Visit E&M New Low-Mod 20-29 Min [facility], [address] [address], [place], [address], [place] tel:[phone] [facility] GI Symptoms or Concerns (chief complaint) Diarrhea, unspecified typePain of upper abdomen 0 Edstrom GABRIELLE Fenton. [address] [place] [address], [id number], [place]. tel:[phone] Referring Provider: [place], [address] [place], [address]. tel:[phone] [facility], [address] [address], [place], [address], [place] tel:[phone] [facility] No Information 0 Neena Dougherty. [address] [place] [address], [id number], [place]. tel:[phone] Family History Family Member Type Diagnosis Age At Onset Son Problem (finding) Alive and well Daughter Problem (finding) Galactosemia Half brother (M) Problem (finding) Alive and well Half sister (M) Problem (finding) Alive and well Mother Problem (finding) Alive and well Immunizations Vaccine Date Status Comments Influenza, adjuvanted, inactivated, quadrivalent, injectable, preservative free administered Note: [employer] bi-directional interface ; Source: Other Registry SARS-COV-2 [...] Pneumococcal conjugate vacci ne 20-valent (PCV20), polysaccharide [id number] conjugate, adjuvant, preservative free administered Note: MIIC [...] Registry Payers Payer name Insurance type Covered libertarian ID Authoriza tion(s) Medicare NGS MB [id number] Social History Type Description Quantity Date Captured [...] middle of June patient was admitted to [facility] where he started having multiple bloody [...] not. He went to the emergency department [facility] GI Symptoms or Concerns Kev [...] metformin dosing. He has not tried any fmsz-uei-ftdpcnb medications or identified any alleviating factors to [...] communicate diet changes thereafter-- Safe to use norb-vmw-wobjxxn lidocaine patch-- Safe to consume 1 pill of meeg-fag-cihmrdf IBgard, can also buy online-- Have prescribed [...]
--- OUTSIDE RECORDS SUMMARY | 2025-06-04 19:12 | XMS_ITS | Encounter Summary ---
Author Organization [facility] Address [address] [place] [address] Care Team Providers Care Relish Maker Name Role Phone Carly Jesus MD Primary Care Provider [phone] Ip, Lucio Prakash MD Unavailable [phone] Zulma Madsen PA-C Unavailable [phone] Ip, Lucio Prakash MD Unavailable [phone] Carly Santos MD Unavailable [phone] Henrique Pulido MD Unavailable Neena Levine MD Unavailable [phone] Henrique Pulido MD Unavailable Marisol Hawthorne PA-C Unavailable [phone] Encounter Details Date Type Department Care Team (Late st Contact Info) Description 08/14/2024 MyC Medical Advice [facility] [address] [place] [address] Serene Lance, RN Social History Tobacco Use Types Packs/Day Years Used Date Smoking Tobacco: Never Passive Smoke Exposure: Never Smokeless Tobacco: Never Alcohol Use Standard Drinks/Week Comments No 0 (1 standard drink = 0.6 oz pur e alcohol) PHQ-2 Answer Date Recorded PHQ-2 Score 2 08/17/2024 Adolescent Education Answer Date Record ed Getting School Help Needed Not on file 06/13 Food Insecurity Answer Date Recorded Within the past 12 months, d id you worry that your food would run out before you got money to buy more? No 08/01/2024 Within the past 12 months, d id the food you bought just not last and you didn t have money to get more? No 08/01/2024 Housing Stability Answer Date Recorded Do you have housing? (Aretha gerber is defined as stable permanent housing and does not include staying outside in a car, in a tent, in an abandoned building, in an overnight fci, or couch-surfing.) Yes 08/01/2024 Are you worried about losing your housing? No 08/01/2024 Financial Resource Strain Answer Date R ecorded Within the past 12 months, h ave you or your family members you live with been unable to get utilities (heat, electricity) when it was really needed? No 08/01/2024 Transportation Needs Answer Date Record ed Within the past 12 months, h as lack of transportation kept you from medical appointments, getting your medicines, non-medical meetings or appointments, work, or from getting things that you need? No 08/01/2024 Interpersonal Safety Answer Date Record ed Do you feel physically and e motionally safe where you currently live? Yes 07/08/2024 Within the past 12 months, h ave you been hit, slapped, kicked or otherwise physically hurt by someone? No 07/08/2024 Within the past 12 months, h ave you been humiliated or emotionally abused in other ways by your partner or ex-partner? 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 Gender Identity Not on file Sexual Orientation Not on file documented as of this encounter Plan of Treatment Upcoming Encounters Date Type Department Care Team (Late st Contact Info) Description 08/02/2025 8:00 PM STRUCTURAL ENGINEERING PROJECT MANAGER Therapy Visit [facility] [address] [facility] [address] [place] [phone] Marisol Hawthorne PA-C [address] [facility] [address] [place], [place] [id number] 11/14/2025 9:00 AM CDT Office Visit [facility] [address] [place] [phone] Marisol Hawthorne PA-C [address] [facility] [address] [place] [address] documented as of this encounter Visit Diagnoses Not on filedocumented in this encounter Additional Health Concerns Infection Onset Date Last Indicated Resolved Time Rule Out COVID-19 09/03/2024 09/03/2024 09/03/2024 3:44 PM STRUCTURAL ENGINEERING PROJECT MANAGER Rule Out COVID-19 12/29/2024 12/29/2024 12/29/2024 2:49 AM CDT documented as of this encounter Care Teams Relish Maker Relationship Specialty Start Date End Date Carly Jesus MD [facility] [address] [place] [address] PCP - General Internal Medicine 06/06/24 Lucio Westfall MD [address] [place] [address] Cardiovascular Disease 08/16/24 Zulma Madsen PA-C [address] [place] [address]45754 Assigned Cancer Care Provider 08/21/24 Lucio Westfall MD [address] [place] [address] Assigned Heart and Vascular Provider 08/21/24 Carly Santos MD [facility], [address] [place], [place] [address] Assigned Surgical Provider 08/21/24 Henrique Pulido MD [address] [place] [address] Neurology 09/29/24 Neena Levine MD [address] [place], [place] [address] Physician Neurology 10/11/24 Henrique Pulido MD [address] [place] [address] Assigned Neuroscience Provider 10/22/24 Marisol Hawthorne PA-C [address] [place] [address] [place] [address] Assigned Sleep Provider 04/21/25 documented as of this encounter
--- OUTSIDE RECORDS SUMMARY | 2025-06-04 19:12 | XMS_ITS | Encounter Summary ---
Author Organization [facility] Address [address] [place] [address] Care Team Providers Care Informatica Developer Name Role Phone Carly Jesus MD Primary Care Provider [phone] Ip, Lucio Prakash MD Unavailable [phone] Zulma Madsen PA-C Unavailable [phone] Ip, Lucio Prakash MD Unavailable [phone] Carly Santos MD Unavailable [phone] Henrique Pulido MD Unavailable Neena Levine MD Unavailable [phone] Henrique Pulido MD Unavailable Marisol Hawthorne PA-C Unavailable +[phone] Reason for Referral * Diagnostic Procedure Office (Routine) - Authorized Specialty Diagnoses / Procedures Referred By Contac t Referred To Contact Diagnoses Paresthesia of hand, bilateral Procedures EMG Henrique Pulido MD [address] [facility] [place] [address] Phone: tel: fax: Referral ID Status Reason Start Date Expiration Date V isits Requested Visits Authorized [id number] Authorized 10/10/2024 10/10/2025 1 1 ATIONS LIEUTENANT Reason for Visit * Reason Onset Date Comments Orders 10/10/2024 EMG Encounter Details Date Type Department Care Team (Late st Contact Info) Description 10/10/2024 Telephone [facility] Neurology [facility] [address] [place] [address], [address] [place] [address] Henrique Pulido MD [address] [address] Orders (EMG) Social History Tobacco Use Types Packs/Day Years Used Date Smoking Tobacco: Never Passive Smoke Exposure: Never Smokeless Tobacco: Never Alcohol Use Standard Drinks/Week Comments No 0 (1 standard drink = 0.6 oz pur e alcohol) PHQ-2 Answer Date Recorded PHQ-2 Score 0 10/03/2024 Adolescent Education Answer Date Record ed Getting [...] Date Recorded Do you have housing? (Aretha g is defined as stable permanent housing and does not include staying outside in a car, in a tent, in an abandoned building, in an overnight halfway, or couch-surfing.) Yes 08/01/2024 Are you worried [...] on file Legal Sex Male 3:12 AM OPERATIONS LIEUTENANT Gender Identity Not on file Sexual Orientation Not on file documented as of this encounter Miscellaneous Notes * Telephone Encounter - Natalie Musa - 10/10/2024 1:06 PM CST [facility] Call Center Phone Message May a detailed message be left on voicemail: yes Reason for Call: Order(s): Other: Reason for requested: EMG Date needed: lynnette, for scheduling Provider name: Dr. Ashok Angulo calling to request the EMG order that was discussed at his visit to be entered so he may schedule. Action Taken: Message routed to: Other: [facility] Travel Screening: Not Applicable Date of Service: ATIONS LIEUTENANT documented in this encounter Plan of Treatment Upcoming Encounters Date Type Department Care Team (Late st Contact Info) Description 08/02/2025 8:00 PM OPERATIONS LIEUTENANT Therapy Visit [place] [address] [place] [phone] Marisol Hawthorne PA-C [address] [place] [address] [address] [place] [id number] 11/14/2025 9:00 AM CDT Office Visit [facility] [address] [place] [phone] Marisol Hawthorne PA-C [address] [facility] [address] [place] [id number] Scheduled Orders Name Type Priority Associated Diagnoses Orde r Schedule EMG Neurology Routine Paresthesia of hand, bilateral Expected: 10/10/2024 (Approximate), Expires: 10/10/2025 documented as of this encounter Visit Diagnoses Diagnosis Paresthesia of hand, bilateral- Primary documented in this encounter Additional Health Concerns Infection Onset Date Last Indicated Resolved Time Rule Out COVID-19 12/29/2024 12/29/2024 12/29/2024 2:49 AM CDT documented as of this encounter Care Teams Informatica Developer Relationship Specialty Start Date End Date Carly Jesus MD [facility] [address] [place] [address] PCP - General Internal Medicine 06/06/24 Lucio Westfall MD [address] [address] Cardiovascular Disease 08/16/24 Zulma Madsen, PAJusticeC [address] [place] [address] Assigned Cancer Care Provider 08/21/24 Lucio Westfall MD [address] [address] Assigned Heart and Vascular Provider 08/21/24 Carly Santos MD [facility], [address] [place], [place] [address] Assigned Surgical Provider 08/21/24 Henrique Pulido MD [address] [place] [address] Neurology 09/29/24 Neena Levine MD [address] [place] [address] Physician Neurology 10/11/24 Henrique Pulido MD [address] [place] [address] Assigned Neuroscience Provider 10/22/24 Marisol Hawthorne PA-C [address] [place] [address] Assigned Sleep Provider 04/21/25 documented as of this encounter
--- OUTSIDE RECORDS SUMMARY | 2025-06-04 19:12 | XMS_ITS | Clinical Summary ---
Author Organization [facility] Address [address] [place] [address] Care Team Providers Care Clinical Evaluator Name Role Phone Needs Pcp, Assignment Primary Care Provider [phone] Source Comments You are receiving this document as you are listed as the primary care provider,follow-up provider, or the patient has been referred to you for consultation.This is in compliance with the Medicare and[facility] EHR Incentive Program,which states Providers who transition their patient to another setting of careor provider of care or refers their patient to another provider of care shouldprovide summary care record for each transition of care or referral. [facility] Allergies No known active allergies Medications atenolol (TENORMIN) 25 MG tablet Take 25 mg by mouth daily. 04/27/2020 Active busPIRone (BUSPAR) 10 MG tablet Take 10 mg by mouth two times a day. 06/05/2020 Active Continuous Blood Gluc Sensor (FREESTYLE CAT 14 DAY SENSOR) [facility] [place] 06/24/2020 Active metFORMIN (GLUCOPHAGE) 500 MG tablet Take 500 mg by mouth two times a day with meals. Active Active Problems No known active problems Social History Tobacco Use Types Packs/Day Years Used Date Smoking Tobacco: Never Sex and Gender Information Value Date Recorded Sex Assigned at Not on file Legal Sex Male 5:13 AM CDT Gender Identity Not on file Sexual Orientation Not on file Last Filed Vital Signs Vital Sign Reading Time Taken Comments Blood Pressure 133/86 02/18/2022 6:03 PM CDT Pulse 84 02/18/2022 6:03 PM CDT Temperature 36.6 C (97.9 F) 07/01/2020 6:31 PM CONTOUR BAND SAW OPERATOR VERTICAL Respiratory Rate 16 07/01/2020 6:31 PM CONTOUR BAND SAW OPERATOR VERTICAL Oxygen Saturation 98% 07/01/2020 6:31 PM CONTOUR BAND SAW OPERATOR VERTICAL Inhaled Oxygen Concentration - - Weight - - Height - - Body Mass Index - - Plan of Treatment Health Maintenance Due Date Last Done Comments Colon Cancer Screening Plan Due 1960 Hep C Screening (Preventive Services) 1960 PSA Screening Discussion 1960 Adult Preventive Visit 1976 Cholesterol 1993 DTaP/Tdap/Td Vaccine (1 - Tdap) 07/17/2017 07/16/2017 COVID-19 Vaccine ( season) 2025 01/18/2022, 06/20/2021, 12/04/2020, Additional history exists Influenza Vaccine (#1) 2025 , 06/07/2020, 06/20/2019, Additional history exists RSV Vaccine (1 - 1-dose 75+ series) 2033 Zoster/Shingles Vaccine Completed 05/29/20 18, 03/06/2018, 03/23/2016 Pneumococcal Vaccine 50+ Yrs Completed 01/18/2022, 04/01/2018 HepA Vaccine Aged Out No longer eligi ble based on patient's age to complete this topic HepB Vaccine Aged Out No longer eligi ble based on patient's age to complete this topic Hib Vaccine Aged Out No longer eligi ble based on patient's age to complete this topic IPV (Polio) Vaccine Aged Out No longe r eligible based on patient's age to complete this topic MCV4 Vaccine Aged Out No longer eligi ble based on patient's age to complete this topic Meningococcal B Vaccine Aged Out No l onger eligible based on patient's age to complete this topic Care Teams Clinical Evaluator Relationship Specialty Start Date End Date Needs Pcp, Erica SK[facility] [place] [address] PCP - General 08/10/22
--- OUTSIDE RECORDS SUMMARY | 2025-06-04 19:12 | XMS_ITS | Encounter Summary ---
Author Organization [facility] Address [address] [place] [address] Care Team Providers Care Rfid Engineer Name Role Phone Carly Jesus MD Primary Care Provider [phone] Ip, Lucio Prakash MD Unavailable [phone] Zulma Madsen PA-C Unavailable [phone] Ip, Lucio Prakash MD Unavailable [phone] Carly Santos MD Unavailable [phone] Henrique Pulido MD Unavailable Neena Levine MD Unavailable [phone] Henrique Pulido MD Unavailable Marisol Hawthorne PA-C Unavailable +[phone] Encounter Details Date Type Department Care Team (Late st Contact Info) Description 08/15/2024 MyC Medical Advice [facility] [address] [place] [address] [employer] Mercado Social History Tobacco Use Types Packs/Day Years [...] in an abandoned building, in an overnight long term, or couch-surfing.) Yes 08/01/2024 Are you worried [...] on file Legal Sex Male 3:12 AM SPECIAL EDUCATION ASSOCIATE Gender Identity Not on file Sexual Orientation Not on file documented as of this encounter Plan of Treatment Upcoming Encounters Date Type Department Care Team (Late st Contact Info) Description 08/02/2025 8:00 PM SPECIAL EDUCATION ASSOCIATE Therapy Visit [facility] [address] [facility] [address] [place] [phone] Marisol Hawthorne PA-C [address] [facility] [address] [place] [address] 11/14/2025 9:00 AM CDT Office Visit [facility] [address] [place] [phone] Marisol Hawthorne PA-C [address] [place] [address] documented as of this encounter Visit Diagnoses Not on filedocumented in this encounter Additional Health Concerns Infection Onset Date Last Indicated Resolved Time Rule Out COVID-19 09/03/2024 09/03/2024 09/03/2024 3:44 PM SPECIAL EDUCATION ASSOCIATE Rule Out COVID-19 12/29/2024 12/29/2024 12/29/2024 2:49 AM CDT documented as of this encounter Care Teams Rfid Engineer Relationship Specialty Start Date End Date Carly Jesus MD [facility] [address] [place] [address] PCP - General Internal Medicine 06/06/24 Lucio Westfall MD [address] [place] [address] Cardiovascular Disease 08/16/24 Zulma Madsen PA-C [address] [place] [address] Assigned Cancer Care Provider 08/21/24 Lucio Westfall MD [address] [place] [id number] Assigned Heart and Vascular Provider 08/21/24 Carly Santos MD [facility], [address] [place], [place] [address] Assigned Surgical Provider 08/21/24 Henrique Pulido MD [address] [address] Neurology 09/29/24 Neena Levine MD [address] [place] [address] Physician Neurology 10/11/24 Henrique Pulido MD [address] [place] [address] Assigned Neuroscience Provider 10/22/24 Marisol Hawthorne PA-C [address] [place] [address] [place] [address] Assigned Sleep Provider 04/21/25 documented as of this encounter
--- OUTSIDE RECORDS SUMMARY | 2025-06-04 19:12 | XMS_ITS | Clinical Summary ---
Author Organization [place] Address [address] [place] [address] Care Team Providers Care Rippler Name Role Phone Carly Jesus MD Primary Care Provider [phone] Ip, Lucio Prakash MD Unavailable [phone] Zulma Madsen PA-C Unavailable [phone] Ip, Lucio Prakash MD Unavailable [phone] Carly Santos MD Unavailable [phone] Henrique Pulido MD Unavailable Neena Levine MD Unavailable [phone] Henrique Pulido MD Unavailable Marisol Hawthorne PA-C Unavailable [phone] Allergies Active Allergy Reactions Criticality Noted Date Comments Atorvastatin Muscle Pain (Myalgia) Low 06/08/2018 Onset of myalgia two days after starting medication Oxycodone Nausea and Vomiting 02/23/2012 Medications insulin glargine (LANTUS PEN) 100 UNIT/ML pen Inject 10 Units subcutaneously at bedtime. Active acetaminophen (TYLENOL) 500 MG tabletIndicatio ns:RUQ pain Take 2 tablets (1,000 mg) by mouth every 6 hours as needed for pain. 07/08/20 24 Active atorvastatin (LIPITOR) 20 MG tabletIndicatio ns:High cholesterol Take 1 tablet (20 mg) by mouth every evening. 30 tablet 08/02/20 24 Active traMADol (ULTRAM) 50 MG tablet Take 50 mg by mouth every 6 hours as needed (kidney stone pain). Active OZEMPIC, 1 MG/DOSE, 4 MG/3ML pen Inject 1 mg subcutaneously every 7 days. 12/24/19 25 Active vitamin D3 (CHOLECALCIFERO L) 50 mcg (2000 units) tablet Take 2 tablets by mouth daily. Active aspirin 81 MG EC tablet Take 81 mg by mouth daily. Active Active Problems Problem Noted Date Diagnosed Date Paresthesias 12/29/2024 Limb ataxia 12/29/2024 History of stroke 12/29/2024 Acute ischemic stroke 08/01/2024 Symptomatic cholelithiasis 07/07/2024 Duodenitis 07/06/2024 Acute gastritis without hemo rrhage, unspecified gastritis type 07/06/2024 Anxiety 08/01/2023 Gastroesophageal reflux disease 08/01/2023 Type 2 diabetes mellitus 08/01/2023 Hypertension 12/19/2013 Dislocated finger 03/25/2011 Contact dermatitis and other eczema, due to unspecified cause 03/25/2011 Encounters Date Type Department Care Team Description 04/13/2025 9:30 AM CDT Office Visit [facility] Sleep [address] [address] Carly Clark PA-C Baumann, Amber Alexandra, PA-C Snoring (Primary Dx); Witnessed apneic spells; Acute ischemic stroke (H); Primary hypertension; Anxiety 04/13/2025 Travel 04/12/2025 Travel 03/03/2025 8:11 PM CDT - 03/04/2025 12:42 AM CDT Emergency [facility] [address] [place] [address] Gill Canales MD Chest pain, unspecified type; Paresthesia; History of stroke Discharge Disposition: Home or Self Care from Last 3 Months Immunizations Immunization Administration Dates Next Due Influenza Vaccine >6 months,quad, PF 06/20/2019, 06/13/2018,07/16/2017 Pneumococcal 23 valent 04/01/2018 Td (Adult), Adsorbed 07/16/2017 Zoster recombinant adjuvanted (Shingrix) 018,03/06/2018 Zoster vaccine, live 03/23/2016 Family History Medical History Relation Comments Cancer No family hx of Clotting Disorder No family hx of Diabetes No family hx of Gout No family hx of Heart Disease No family hx of Urolithiasis No family hx of Social History Tobacco Use Types Packs/Day Years Used Date Smoking Tobacco: Never Passive Smoke Exposure: Never Smokeless Tobacco: Never Tobacco Cessation:Counseling Given: Not Answered Alcohol Use Standard Drinks/Week Comments No 0 [...] you got money to buy more? No 12/29/2024 Within the past 12 months, d id the food you bought just not last and you didn t have money to get more? No 12/29/2024 Housing Stability Answer Date Recorded Do you have housing? (Housin g is defined as stable permanent housing and does not include staying outside in a car, in a tent, in an abandoned building, in an overnight halfway, or couch-surfing.) Yes 12/29/2024 Are you worried about losing your housing? No 12/29/2024 Financial Resource Strain Answer Date R ecorded Within the past 12 months, h ave you or your family members you live with been unable to get utilities (heat, electricity) when it was really needed? No 12/29/2024 Transportation Needs Answer Date Record ed Within the past 12 months, h as lack of transportation kept you from medical appointments, getting your medicines, non-medical meetings or appointments, work, or from getting things that you need? No 12/29/2024 Interpersonal Safety Answer Date Record ed Do [...] on file Legal Sex Male 3:12 AM WIRELESS ARCHITECT Gender Identity Not on file Sexual Orientation Not on file Last Filed Vital Signs Vital Sign Reading Time Taken Comments Blood Pressure 124/84 04/13/2025 9:29 AM CDT Pulse 81 04/13/2025 9:29 AM CDT Temperature 37.5 C (99.5 F) 03/03/2025 8:10 PM CDT Respiratory Rate 20 03/03/2025 8:10 PM CDT Oxygen Saturation 96% 04/13/2025 9:29 AM CDT Inhaled Oxygen Concentration - - Weight 65.3 kg (144 lb) 04/13/2025 9:29 AM CDT Height 165.1 cm (5' 5) 04/13/2025 9:29 AM CDT Body Mass Index 23.96 04/13/2025 9:29 AM CDT Plan of Treatment Upcoming Encounters Date Type Department Care Team (Late st Contact Info) Description 08/02/2025 8:00 PM WIRELESS ARCHITECT Therapy Visit [facility] Sleep [facility] [address] [facility] [address] [phone] Marisol Hawthorne PA-C [address] [place] [id number] 11/14/2025 9:00 AM CDT Office Visit [facility] Sleep [facility] [id number] [place] [phone] Marisol Hawthorne PA-C [address] [place] [id number] Health Maintenance Due Date Last Done Comments ADVANCE CARE PLANNING 1960 ANNUAL REVIEW OF HM ORDERS 1958 CT COLONOGRAPHY 1958 DIABETIC FOOT EXAM 1958 EYE EXAM 1960 FLEX SIG 1958 MICROALBUMIN 1958 sDNA (Cologuard) 1958 FIT 12/01/2022 12/01/2021, 08/10/2018 FALL RISK ASSESSMENT 2023 MEDICARE ANNUAL WELLNESS VISIT 2023 COVID-19 VACCINE ( season) 2025 07/10/2023, 07/01/2022, 01/18/2022, Additional history exists INFLUENZA VACCINE (#1) 2025 , 06/19/2023, 06/11/2023, Additional history exists A1C 07/31/2025 05/01/2025, 05/0 08/2024, 07/05/2024, Additional history exists LIPID 08/01/2025 08/01/2024 BMP 03/03/2026 03/03/2025, 05/0 08/2024, 09/03/2024, Additional history exists DTAP/TDAP/TD VACCINE (3 - Td or Tdap) 07/16/2027 07/16/2017, 09/18/2005 COLONOSCOPY 12/02/2031 12/01/2021 COLORECTAL CANCER SCREENING 12/02/2031 HEPATITIS C SCREENING Completed 12/05/2013 ZOSTER VACCINE Completed 05/29/2018, 070 03/2018, 03/23/2016 PNEUMOCOCCAL VACCINE 50+ YEARS Completed 01/18/2022, 04/01/2018 RSV VACCINE Completed 06/27/2023 PHQ-2 (once per calendar year) Completed 10/03/2024, 08/17/2024 HPV VACCINE (No Doses Required) Completed MENINGITIS VACCINE Aged Out No longer eligible based on patient's age to complete this topic Procedures Procedure Name Priority Date/Time Associated Diagnosis Comments HEMOGLOBIN A1C Routine 05/01/2025 9:20 AM CDT Type 2 diabetes mellitus with hyperglycemia (H) BASIC METABOLIC PANEL STAT 03/03/2025 9:06 PM CDT LIPID PROFILE STAT Add-on 08/01/2024 10:00 AM WIRELESS ARCHITECT OCCULT BLOOD STOOL STAT 08/10/2018 8: 05 PM WIRELESS ARCHITECT from Last 3 Months or Most Recently Relevant to Health Maintenance Results * (ABNORMAL) Hemoglobin A1c (05/01/2025 9:20 AM CDT) Estimated Average Glucose 143(H) <117 mg/dL 05/01/2025 7:31 PM CDT [facility] Hemoglobin A1C 6.6(H) <5.7 % 05/01/2025 7:31 PM CDT [facility] Comment: Normal <5.7% Prediabetes 5.7-6.4% Diabetes 6.5% or higher Note: Adopted from ADA consensus guidelines. Blood TOPOGRAPHY UNKNOWN / Unknown Client Draw / Unknown 05/01/2025 9:20 AM CDT 05/01/2025 5:49 PM CDT Carly Jesus MD LAB - BLOOD ORDERABLES Final Re sult LABORATORY [facility] [address] Lab (1st floor, no room number) [place] [address] * (ABNORMAL) Basic metabolic panel (BMP) (03/03/2025 9:06 PM CDT) Sodium 140 135 - 145 mmol/L 03/03/2025 9:33 PM CDT LABORATORY Potassium 4.3 3.4 - 5.3 mmol/L 03/03/2025 9:33 PM CDT LABORATORY Chloride 109(H) 98 - 107 mmol/L 03/03/2025 9:33 PM CDT LABORATORY Carbon Dioxide (CO2) 23 22 - 29 mmol/L 03/03/2025 9:33 PM CDT LABORATORY Anion Gap 8 7 - 15 mmol/L 03/03/2025 9:33 PM CDT [facility] Urea Nitrogen 15.3 8.0 - 23.0 mg/dL 03/03/2025 9:33 PM CDT LABORATORY Creatinine 0.89 0.67 - 1.17 mg/dL 03/03/2025 9:33 PM CDT LABORATORY GFR Estimate >90 >60 mL/min/1.7 3m2 03/03/2025 9:33 PM CDT LABORATORY Comment:eGFR calculated usin 2020 CKD-EPI equation. Calcium 9.0 8.8 - 10.4 mg/dL 03/03/2025 9:33 PM CDT LABORATORY Glucose 154(H) 70 - 99 mg/dL 03/03/2025 9:33 PM CDT LABORATORY Blood BLOOD SPECIMEN / Unknown Venipuncture / Unknown 03/03/2025 9:06 PM CDT 03/03/2025 9:10 PM CDT Gill Canales MD LAB - BLOOD MYLENE CHARLES Final Result LABORATORY [facility] [address] Lab (1st floor, no room number) [place] [address] * (ABNORMAL) Lipid panel reflex to direct LDL: Non-fasting (08/01/2024 10:00 AM WIRELESS ARCHITECT) Cholesterol 211(H) <200 mg/dL 08/01/2024 11:28 PM WIRELESS ARCHITECT [facility] Triglycerides 204(H) <150 mg/dL 08/01/2024 11:28 PM WIRELESS ARCHITECT [facility] Direct Measure HDL 33(L) >=40 mg/dL 08/01/2024 11:28 PM WIRELESS ARCHITECT [facility] LDL Cholesterol Calculated 137(H) <100 mg/dL 08/01/2024 11:28 PM WIRELESS ARCHITECT [facility] Non HDL Cholesterol 178(H) <130 mg/dL 08/01/2024 11:28 PM WIRELESS ARCHITECT [facility] Blood BLOOD SPECIMEN / Unknown Venipuncture / Unknown 08/01/2024 10:00 AM WIRELESS ARCHITECT 08/01/2024 10:05 AM WIRELESS ARCHITECT Narrative [facility] - 08/01/2024 11:28 PM WIRELESS ARCHITECT Cholesterol Desirable: < 200 mg/dL Borderline High: 200 - 239 mg/dL High: >= 240 mg/dL Triglycerides Normal: < 150 mg/dL Borderline High: 150 - 199 mg/dL High: 200-499 mg/dL Very High: >= 500 mg/dL Direct Measure HDL Female: >= 50 mg/dL Male: >= 40 mg/dL LDL Cholesterol Desirable: < 100 mg/dL Above Desirable: 100 - 129 mg/dL Borderline High: 130 - 159 mg/dL High: 160 - 189 mg/dL Very High: >= 190 mg/dL Non HDL Cholesterol Desirable: < 130 mg/dL Above Desirable: 130 - 159 mg/dL Borderline High: 160 - 189 mg/dL High: 190 - 219 mg/dL Very High: >= 220 mg/dL us Carlos Bergman MD LAB - BLOOD ORDERABLES Final Result LABORATORY [facility] [address] [facility] [address] Building, Room 3-[address] [place] [address] * Stool: occult blood (08/10/2018 8:05 PM WIRELESS ARCHITECT) Occult Blood Negative NEG^Negati ve 08/10/2018 8:10 PM WIRELESS ARCHITECT [facility] Stool specimen (specimen) 08/10/2018 8:05 PM WIRELESS ARCHITECT 08/10/2018 8:08 PM WIRELESS ARCHITECT us Silvia Powell MD LAB - STOOLS ORDERABLES Edited Result - Final [facility] [address] [phone] from Last 3 Months or Most Recently Relevant to Health Maintenance Insurance TEMPORARILY AWAY [facility] MEDICARE ADVANTAGE [employer] MEDICARE ADVANTAGE [facility] [employer] Advance Directives For more information, please contact: [phone] * Full Code (Latest Code Status on File) Date Activated Date Inactivated Comments 12/29/2024 5:35 AM 12/29/2024 3:10 PM All basic and advanced life-sustaining interventions are performed as appropriate Question Answer Comments Code status determined by: Discussion with patie nt/ legal decision maker * Full Code Date Activated Date Inactivated Comments 08/01/2024 2:40 PM 08/02/2024 3:08 PM All basic an d advanced life-sustaining interventions are performed as appropriate Question Answer Comments Code status determined by: Discussion with patie nt/ legal decision maker * Full Code Date Activated Date Inactivated Comments 07/06/2024 5:39 AM 07/09/2024 10:07 PM All basic and advanced life-sustaining interventions are performed as appropriate Question Answer Comments Code status determined by: Discussion with patie nt/ legal decision maker Care Teams Rippler Relationship Specialty Start Date End Date Carly Jesus MD [facility] [address] [place] [address] PCP - General Internal Medicine 06/06/24 Lucio Westfall MD [address] [address] Cardiovascular Disease 08/16/24 Zulma Madsen PA-C [address] [place] [address] [id number] Assigned Cancer Care Provider 08/21/24 Lucio Westfall MD [address] 995195 Assigned Heart and Vascular Provider 08/21/24 Carly Santos MD [facility] [address] [place], [place] 285047 Assigned Surgical Provider 08/21/24 Henrique Pulido MD [address] [place] 360[address]35 Neurology 09/29/24 Neena Levine MD [address] [place] [address] 726405 Physician Neurology 10/11/24 Henrique Pulido MD [address] [address] Assigned Neuroscience Provider 10/22/24 Marisol Hawthorne PA-C [address] [place] [address] [address] [address] Assigned Sleep Provider 04/21/25
--- OUTSIDE RECORDS SUMMARY | 2025-06-04 19:12 | XMS_ITS | Encounter Summary ---
Author Organization [place] Address [address] [place] [address] Care Team Providers Care Zipper Cutter Name Role Phone Carly Jesus MD Primary Care Provider [phone] Ip, Lucio Prakash MD Unavailable [phone] Zulma Madsen PA-C Unavailable [phone] Ip, Lucio Prakash MD Unavailable [phone] Carly Santos MD Unavailable [phone] Henrique Pulido MD Unavailable Neena Levine MD Unavailable [phone] Henrique Pulido MD Unavailable Marisol Hawthorne PA-C Unavailable [phone] Encounter Details Date Type Department Care Team (Late st Contact Info) Description 08/08/2024 MyC Medical Advice [facility] [address] [place] [address] Jaky Perry Social History Tobacco Use Types Packs/Day Years [...] in an abandoned building, in an overnight assisted, or couch-surfing.) Yes 08/01/2024 Are you worried [...] on file 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 Gender Identity Not on file Sexual Orientation Not on file documented as of this encounter Plan of Treatment Upcoming Encounters Date Type Department Care Team (Late st Contact Info) Description 08/02/2025 8:00 PM SENIOUR INSIGHT MANAGER Therapy Visit [facility] Sleep [place] [phone] [facility] [address] [phone] Marisol Hawthorne PA-C [address] [facility] [address] [address] 11/14/2025 9:00 AM CDT Office Visit [facility] [address] [place] [phone] Marisol Hawthorne PA-C [address] [place] [phone] documented as of this encounter Visit Diagnoses Not on filedocumented in this encounter Additional Health Concerns Infection Onset Date Last Indicated Resolved Time Rule Out COVID-19 09/03/2024 09/03/2024 09/03/2024 3:44 PM SENIOUR INSIGHT MANAGER Rule Out COVID-19 12/29/2024 12/29/2024 12/29/2024 2:49 AM CDT documented as of this encounter Care Teams Zipper Cutter Relationship Specialty Start Date End Date Carly Jesus MD [facility] [address] [place] [address] PCP - General Internal Medicine 06/06/24 Lucio Westfall MD [address] [place] [address] Cardiovascular Disease 08/16/24 Zulma Madsen PA-C [address] [place] [address] 857284 Assigned Cancer Care Provider 08/21/24 Lucio Westfall MD [address] [place] [address] Assigned Heart and Vascular Provider 08/21/24 Carly Santos MD [facility], [address] [place] [address] Assigned Surgical Provider 08/21/24 Henrique Pulido MD [address] [address] Neurology 09/29/24 Neena Levine MD [address] [place] [address] Physician Neurology 10/11/24 Henrique Pulido MD [address] [address] Assigned Neuroscience Provider 10/22/24 Marisol Hawthorne PA-C [address] [place] [address] [address] [place] [address] Assigned Sleep Provider 04/21/25 documented as of this encounter
--- OUTSIDE RECORDS SUMMARY | 2025-06-04 19:12 | XMS_ITS | Encounter Summary ---
Author Organization [place] Address [address] [place] [address] Care Team Providers Care Auxiliary Equipment Tender Name Role Phone Carly Jesus MD Primary Care Provider [phone] Ip, Lucio Prakash MD Unavailable [phone] Zulma Madsen PA-C Unavailable [phone] Ip, Lucio Prakash MD Unavailable [phone] Carly Santos MD Unavailable [phone] Henrique Pulido MD Unavailable Neena Levine MD Unavailable [phone] Henrique Pulido MD Unavailable Marisol Hawthorne PA-C Unavailable [phone] Encounter Details Date Type Department Care Team (Late st Contact Info) Description 01/09/2025 [facility] Medical Advice [address] [place] [phone] Lamont Moon Social History Tobacco Use Types Packs/Day Years [...] in an abandoned building, in an overnight senior care, or couch-surfing.) Yes 12/29/2024 Are you worried [...] on file 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 Gender Identity Not on file Sexual Orientation Not on file documented as of this encounter Plan of Treatment Upcoming Encounters Date Type Department Care Team (Late st Contact Info) Description 08/02/2025 8:00 PM ROLE PLAYER Therapy Visit [facility] [address] [facility] [address] [phone] Marisol Hawthorne PA-C 6[address] [facility] [address] [place], [place] [phone] 11/14/2025 9:00 AM CDT Office Visit [facility] [address] [place] [phone] Marisol Hawthorne PA-C [address] [address] documented as of this encounter Visit Diagnoses Not on filedocumented in this encounter Care Teams Auxiliary Equipment Tender Relationship Specialty Start Date End Date Carly Jesus MD [facility] [address] [place] [address] PCP - General Internal Medicine 06/06/24 Lucio Westfall MD [address] [place] [address] Cardiovascular Disease 08/16/24 Zulma Madsen PA-C [address] [place] [address]164 Assigned Cancer Care Provider 08/21/24 Lucio Westfall MD [address] [place] [address] Assigned Heart and Vascular Provider 08/21/24 Carly Santos MD [facility] [address] [place] [address] Assigned Surgical Provider 08/21/24 Henrique Pulido MD [address] [place] [address] Neurology 09/29/24 Neena Levine MD 9[address] [place] [address] Physician Neurology 10/11/24 Henrique Pulido MD [address] [address] Assigned Neuroscience Provider 10/22/24 Marisol Hawthorne PA-C [address] [place] [address] Assigned Sleep Provider 04/21/25 documented as of this encounter
--- OUTSIDE RECORDS SUMMARY | 2025-06-04 19:12 | XMS_ITS | Encounter Summary ---
Author Organization [place] Address [address] [place] [address] Care Team Providers Care Ointment Mill Tender Name Role Phone Carly Jesus MD Primary Care Provider [phone] Ip, Lucio Prakash MD Unavailable [phone] Zulma Madsen PA-C Unavailable [phone] Ip, Lucio Prakash MD Unavailable [phone] Carly Santos MD Unavailable [phone] Henrique Pulido MD Unavailable Neena Levine MD Unavailable [phone] Henrique Pulido MD Unavailable Marisol Hawthorne PA-C Unavailable [phone] Encounter Details Date Type Department Care Team (Late st Contact Info) Description 08/28/2024 MyC Medical Advice [facility] [address] [place] [address] Serene Lance, RN Social History [...] in an abandoned building, in an overnight usp, or couch-surfing.) Yes 08/01/2024 Are you worried [...] on file 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 Gender Identity Not on file Sexual Orientation Not on file documented as of this encounter Plan of Treatment Upcoming Encounters Date Type Department Care Team (Late st Contact Info) Description 08/02/2025 8:00 PM FIRE ENGINE OPERATOR Therapy Visit [facility] [address] [facility] [address] [place] [phone] Marisol Hawthorne PA-C [address] [facility] [address] [place], [place] [phone] 11/14/2025 9:00 AM CDT Office Visit [facility] [address] [place] [phone] Marisol Hawthorne PA-C [address] [facility] [address] [place] [address] documented as of this encounter Visit Diagnoses Not on filedocumented in this encounter Additional Health Concerns Infection Onset Date Last Indicated Resolved Time Rule Out COVID-19 09/03/2024 09/03/2024 09/03/2024 3:44 PM FIRE ENGINE OPERATOR Rule Out COVID-19 12/29/2024 12/29/2024 12/29/2024 2:49 AM CDT documented as of this encounter Care Teams Ointment Mill Tender Relationship Specialty Start Date End Date Carly Jesus MD [facility] [address] [place] [address] PCP - General Internal Medicine 06/06/24 Lucio Westfall MD [address] [place] [address] Cardiovascular Disease 08/16/24 Zulma Madsen PA-C [address] [place] [address] 285474 Assigned Cancer Care Provider 08/21/24 Lucio Westfall MD [address] [place] [address] Assigned Heart and Vascular Provider 08/21/24 Carly Santos MD [facility], [address] [place], [place] [phone] Assigned Surgical Provider 08/21/24 Henrique Pulido MD [address] [address] Neurology 09/29/24 Neena Levine MD [address] [place], [place] 2739[address] Physician Neurology 10/11/24 Henrique Pulido MD [address] [address] Assigned Neuroscience Provider 10/22/24 Marisol Hawthorne PA-C [address] [place] [address] [address] [place] [address] Assigned Sleep Provider 04/21/25 documented as of this encounter
--- OUTSIDE RECORDS SUMMARY | 2025-06-04 19:12 | XMS_ITS | Encounter Summary ---
Author Organization [place] [facility] Address [address] [place] [address] Care Team Providers Care Hand Straightener Name Role Phone Carly Jesus MD Primary Care Provider [phone] Ip, Lucio Prakash MD Unavailable [phone] Zulma Madsen PA-C Unavailable [phone] Ip, Lucio Prakash MD Unavailable [phone] Carly Santos MD Unavailable [phone] Henrique Pulido MD Unavailable Neena Levine MD Unavailable [phone] Henrique Pulido MD Unavailable Marisol Hawthorne PA-C Unavailable [phone] Encounter Details Date Type Department Care Team (Late st Contact Info) Description 10/24/2024 MyC Medical Advice [facility] [address] [facility] [place] [address] Zulma Madsen PA-C [address] [place] [address] Social History Tobacco Use Types Packs/Day Years [...] an overnight senior care, or couch-surfing.) Yes 08/01/2024 Are you worried [...] on file 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 Gender Identity Not on file Sexual Orientation Not on file documented as of this encounter Plan of Treatment Upcoming Encounters Date Type Department Care Team (Late st Contact Info) Description 08/02/2025 8:00 PM WEB SERVICES DEVELOPER Therapy Visit [facility] [address] [address] [place] [address] Marisol Hawthorne PA-C [address] [place] [address] 11/14/2025 9:00 AM CDT Office Visit [facility] [address] [place] [phone] Marisol Hawthorne PA-C [address] [place] [id number] documented as of this encounter Visit Diagnoses Not on filedocumented in this encounter Additional Health Concerns Infection Onset Date Last Indicated Resolved Time Rule Out COVID-19 12/29/2024 12/29/2024 12/29/2024 2:49 AM CDT documented as of this encounter Care Teams Hand Straightener Relationship Specialty Start Date End Date Carly Jesus MD [facility] [address] [place] [address] PCP - General Internal Medicine 06/06/24 Lucio Westfall MD [address] [place] [id number] Cardiovascular Disease 08/16/24 Zulma Madsen PA-C [facility] [place] [id number] Assigned Cancer Care Provider 08/21/24 Lucio Westfall MD [address] [place] [id number] Assigned Heart and Vascular Provider 08/21/24 Carly Santos MD [facility], [address] [place], [place] [address] Assigned Surgical Provider 08/21/24 Henrique Pulido MD [address] [address] Neurology 09/29/24 Neena Levine MD [address] [place], [place] 3917[address] Physician Neurology 10/11/24 Henrique Pulido MD [address] [address] Assigned Neuroscience Provider 10/22/24 Marisol Hawthorne PA-C [address] [place] [address] [place] [address] Assigned Sleep Provider 04/21/25 documented as of this encounter
--- OUTSIDE RECORDS SUMMARY | 2025-06-04 19:12 | XMS_ITS | Data Portability ---
Author Organization [place] [facility] Address [address] [place] [address] Care Team Providers Care Snap Attacher Name Role Phone CECE GUEVARA Primary Care Provider [phone] Assessment Encounter Date Assessment Date Assessment LastModified by Organization Details LastModified Time 09/14/2022 09/14/2022 62 year old male with a history of nephrolithias is. Not available 09/13/2022 20:40:43 Plan of Treatment Reminders Order Date Submit Date Provider Last Modified By Organization Details Last Modified Time Details Appointments None recorded. Lab urinalysis , dipstick 2022 023 [facility], [address], [address], [place], [address], 3 11:54:45 unlisted lab - stone blood 2022 023 [facility], [address], [address], [place], [address], 3 14:13:00 Referral None recorded. Procedures None recorded. Surgeries None recorded. Imaging CT, abdomen + pelvis, w/o contrast - Please call to schedule 2022 023 [place] [facility], [address], [address], [place], [address], 3 13:15:30 Medication Orders None recorded. Patient TargetsNo targets recorded. Patient Instructions Encounter Date Encounter Id Patient Instructions Last Modified By Organization Details Last Modified Time 09/14/2022 [id number] Kidney Stones: He is a repeat stone [...] Name Description Value Unit Range Abnormal Flag Note LastModifiedBy Organization Detail LastModifiedTime 09/14/1909/14/2022 UA DIP CS STATU S+ color -advantus YELLOW yellow Not Available [facility] [address] [place] [address] [address], [place], [address], 09/14/2022 11:54:45 09/14/19 23 09/14/2022 UA DIP CS STATU S+ appearance -advantus CLEAR clear Not Available [facility] [address] [place] [address] [address], [place], [address], 09/14/2022 11:54:45 09/14/19 23 09/14/2022 UA DIP CS STATU S+ glucose -advantus 250 mg/dL negati ve abnormal Not Available [facility] [address] [place] [address] [address], [place], [address], 09/14/2022 11:54:45 09/14/19 23 09/14/2022 UA DIP CS STATU S+ bilirubin -advantus NEGATI VE negati ve Not Available [facility] [address] [place] [address] [address], [place], [address], 09/14/2022 11:54:45 09/14/19 23 09/14/2022 UA DIP CS STATU S+ ketones -advantus NEGATI VE mg/dL negati ve Not Available [facility] [address] [place] [address] [address], [place], [address], 09/14/2022 11:54:45 09/14/19 23 09/14/2022 UA DIP CS STATU S+ sp. gravity -advantus 1.025 1.010- 1.025 Not Available [facility] [address] [facility] [address], [place], [address], 09/14/2022 11:54:45 09/14/19 23 09/14/2022 UA DIP CS STATU S+ pH -advantus 5.5 5.0-8. 0 Not Available [facility] [address] [facility] [address], [place], [address], 09/14/2022 11:54:45 09/14/19 23 09/14/2022 UA DIP CS STATU S+ protein -advantus NEGATI VE mg/dL negati ve Not Available [facility] [address] [place] [address] [address], [place], [address], 09/14/2022 11:54:45 09/14/19 23 09/14/2022 UA DIP CS STATU S+ urobilinogen -advantus 0.2 0.2 E.U./d L Not Available [facility] [address] [facility] [address], [place], [address], 09/14/2022 11:54:45 09/14/19 23 09/14/2022 UA DIP CS STATU S+ nitrites -advantus NEGATI VE negati ve Not Available [facility] [address] [facility] [address], [place], [address], 09/14/2022 11:54:45 09/14/19 23 09/14/2022 UA DIP CS STATU S+ blood -advantus NEGATI VE negati ve Not Available [facility] [address] [facility] [address], [place], [address], 09/14/2022 11:54:45 09/14/19 23 09/14/2022 UA DIP CS STATU S+ leukocytes -advantus NEGATI VE negati ve Not Available [facility] [address] [facility] [address], [place], [address], 09/14/2022 11:54:45 09/14/19 23 09/14/2022 UA DIP CS STATU S+ performed by BRAYAN Gifford Not Available [facility] [address] [facility] [address], [place], [address], 09/14/2022 11:54:45 09/14/1909/14/2022 UA DIP CS STATU S+ total urine volume (mL) 30 /mL ----- ----- ----- ----- ----- ----- ----- ----- ----- ----- ----- ----- ----- ----- ---- *Luis M hernández note the follo wing minim um quant ities for addit ional urine testi ng: - Atypi cals: 3 mL - Cytol ogy: 20 mL - GC/CH : 2 mL - FISH: 30 mL - Atypi cals w/ GC/CH : 5 mL - Cytol ogy PLUS FISH: 50 mL - Urine Cultu re: 3 mL ----- ----- ----- ----- ----- ----- ----- ----- ----- ----- ----- ----- ----- ----- ---- This lab resul t is being provi ded to you and your provi rogerio at the same time in compl iance with the 21st Centu ry Cures Act. Your provi rogerio may not have had time to revie w and make recom menda tions based on the teri t. An salazar allow up to one week for provi rogerio revie w. Not Available [facility] [address] [facility] [address], [place], [address], 09/14/2022 11:54:45 0109/14/2022 STONE BLOOD Na 140.0 mmol/ L 135.0- 145.0 Leidy osei n facto rohan salazar 2015. You may notic e a 1-2 mmol/ L incre ase in patie nt Na resul t. Not Available [facility] [address] [facility] [address], [place], [address], 09/14/2022 14:13:00 09/14/19 23 09/14/2022 STONE BLOOD potassium 4.2 mmol/ L 3.6-5. 0 Not Available [facility] [address] [facility] [address], [place], [address], 09/14/2022 14:13:00 09/14/1909/14/2022 STONE BLOOD chloride 106.0 mmol/ L 101.0- 111.0 Not Available [facility] [address] [facility] [address], [place], [address], 09/14/2022 14:13:00 09/14/1909/14/2022 STONE BLOOD CO2 28.0 mmol/ L 21.0-3 1.0 Not Available [facility] [address] [facility] [address], [place], [address], 09/14/2022 14:13:00 09/14/19 23 09/14/2022 STONE BLOOD aniongap 6.00 0.00-1 6.00 Not Available [facility] [address] [facility] [address], [place], [address], 09/14/2022 14:13:00 09/14/19 23 09/14/2022 STONE BLOOD glu 168.40 mg/dL 70.00- 105.00 high Not Available [facility] [address] [facility] [address], [place], [address], 09/14/2022 14:13:00 09/14/19 23 09/14/2022 STONE BLOOD Ca 8.9 mg/dL 8.4-10 .2 Not Available [facility] [address] [facility] [address], [place], [address], 09/14/2022 14:13:00 09/14/19 23 09/14/2022 STONE BLOOD mg 1.8 mg/dL 1.7-2. 8 Not Available [facility] [address] [facility] [address], [place], [address], 09/14/2022 14:13:00 09/14/19 23 09/14/2022 STONE BLOOD phosphorus 2.1 mg/dL 2.5-4. 6 low Not Available [facility] [address] [facility] [address], [place], [address], 09/14/2022 14:13:00 09/14/19 23 09/14/2022 STONE BLOOD uric acid 4.1 mg/dL 2.6-7. 2 Not Available [facility] [address] [facility] [address], [place], [address], 09/14/2022 14:13:00 09/14/19 23 09/14/2022 STONE BLOOD BUN 17.0 mg/dL 7.0-18 .0 Not Available [facility] [address] [facility] [address], [place], [address], 09/14/2022 14:13:00 09/14/19 23 09/14/2022 STONE BLOOD BUN/creat 17.9 ratio 9.0-20 .0 Not Available [facility] [address] [facility] [address], [place], [address], 09/14/2022 14:13:00 09/14/19 23 09/14/2022 STONE BLOOD creatinine 1.0 mg/dL 0.6-1. 3 Not Available [facility] [address] [facility] [address], [place], [address], 09/14/2022 14:13:00 09/14/19 23 09/14/2022 STONE BLOOD eGFR >60 mL/mi n_per _1.73 90-120 If Afric an Ameri can multi ply by 1.210 This lab resul t is being provi ded to you and your provi rogerio at the same time in compl iance with the Centu ry Cures Act. Your provi rogerio may not have had time to revie w and make recom menda tions based on the resul t. An e allow up to one week for provi rogerio revie w. Not Available [facility] [address] [facility] [address], [place], [address], 09/14/2022 14:13:00 09/11/19 23 09/01/2022 XR, abdom en, 1 view No observ ation record ed. Not Available 2022 15:35:10 09/16/19 23 09/16/2022 CT, abdom en + pelvi s, w/o contr ast No observ ation record ed. [facility] [address], [place], [address], 09/16/2022 17:51:08 Result Notes None recorded. Problems Name Problem SNOMED Code Status Onset Date Resolution Date Notes Provider Name and Address Organization Details Recorded Time Kidney stone 65900396 Active 2022 Prasanth regan [facility] 3 10:43:18 Hypertensive disorder 29610164 Active 2022 Prasanth regan [facility] 3 10:44:40 Type 2 diabetes mellitus 98789542 Active 2022 Prasanth Meath shereen [facility] 3 10:44:48 Gastroesophage al reflux disease 045056318 Active 2022 Prasanthhailey regan [facility] 3 10:44:56 Anxiety 63300767 Active 2022 Prasanthhailey regan [facility] 10:45:06 Problem Notes None recorded. Procedures Surgical History Date Name Laterality Status Provider Name and Address Organization Details Recorded Time 3 Blood Draw/OFFICE CLEANER/PSA RESULTS completed Ania Richmond [facility] 09/14/2022 11:43:30 2 Colonoscopy completed Prasanth Eduardo [facility] 08/02/2023 10:44:08 Imaging Results None recorded. Procedure Notes None recorded. Medical Equipment None [...] Updated DateTime 09/14/2022 162.56 cm 25.4 kg/m2 65394.67 g [facility] 09/14/2022 11:31:36 Social History Question Answer Notes LastModified by Organizat ion Details LastModified Time Tobacco Smoking Status Never Smoker [facility], [facility] 09/14/2022 11:33:46 What Is Your Level Of Caffeine Consumption? Occasional Information not available 09/14/2022 What Was The Date Of Your Most Recent Tobacco Screening? 09/14/2022 Information not available 09/14/2022 Sex: Unknown Functional Status Question Answer Note LastModified by Organizat ion Details LastModified Time What is your level of alcohol consumption? Occasional Information not available 09/14/2022 Mental Status None recorded. Family History Nothing Reported. Medical History No medical history recorded. Immunizations Vaccine Type Date Status Note Provider Nam e and Address Organization Details Recorded Time Influenza, recombinant, quadrivalent, PF 1 completed Prasanth Meath null, [facility] 05/10/2023 11:36:37 zoster recombinant 8 completed Prasanth Meath null, [facility] 05/10/2023 11:36:37 zoster recombinant 8 completed Prasanth Meath null, [facility] 05/10/2023 11:36:37 COVID-19, mRNA, LNP-S, PF, 100 mcg/0.5mL dose or 50 mcg/0.25mL dose 1 completed Prasanth Meath null, [facility] 05/10/2023 11:36:37 COVID-19, mRNA, LNP-S, PF, 100 mcg/0.5mL dose or 50 mcg/0.25mL dose 1 completed Prasanth Meath null, [facility] 05/10/2023 11:36:37 COVID-19, mRNA, LNP-S, PF, 100 mcg/0.5mL dose or 50 mcg/0.25mL dose 2 completed Prasanth Meath null, [facility] 05/10/2023 11:36:37 COVID-19, mRNA, LNP-S, PF, 100 mcg/0.5mL dose or 50 mcg/0.25mL dose 1 completed Prasanth Meath null, [facility] 05/10/2023 11:36:37 Pneumococcal conjugate PCV20, polysaccharide [id number] conjugate, adjuvant, PF 2 completed Prasanth Meath null, [facility] 05/10/2023 11:36:37 COVID-19, mRNA, LNP-S, bivalent, PF, 50 mcg/0.5 mL or 25mcg/0.25 mL dose 2 [facility] 11:36:37 pneumococcal polysaccharide PPV23 8 completed Prasanth Meath null, [facility] 05/10/2023 11:36:37 zoster live 6 completed Prasanth Meath null, [facility] 05/10/2023 11:36:37 Td (adult), 2 Lf tetanus toxoid, preservative free, adsorbed 7 completed Prasanth Meath null, [facility] 05/10/2023 11:36:37 Influenza, split virus, quadrivalent, PF 0 completed Prasanth Meath null, [facility] 05/10/2023 11:36:37 Influenza, split virus, quadrivalent, PF 8 completed Prasanth Meath null, [facility] 05/10/2023 11:36:37 Influenza, split virus, quadrivalent, PF 9 completed Prasanth Meath null, [facility] 05/10/2023 11:36:37 Influenza, split virus, quadrivalent, PF 2 completed Prasanth Meath null, [facility] 05/10/2023 11:36:37 Influenza, split virus, quadrivalent, PF 7 completed Prasanth Meath null, [facility] 05/10/2023 11:36:37 Past Encounters Encounter ID Performer Location Encounter Start Date Encounter Closed Date Diagnosis/Indication Diagnosis SNOMED-CT Code Diagnosis ICD10 Code Diagnosis IMO Codes Diagnosis Note [id number] Hua Decker MD [facility] [address] [address] 09/14/2022 11:26:00 09/14/2022 11:41:49 Kidney stone 35670164 N20.0 Health Concerns Section Related Observation LastModified by Organization Detai ls LastModified Time None Recorded Concern Status LastModified by Organization Details LastModified Time None Recorded Advance Directives Directive None Recorded Payers Insurance Date Sequence Insurance Name Policy Number Policy Hager Covered Member ID Hager Member ID Guarantor Name 09/14/2022 1 LISA (MEDICAID REPLACEMENT - HMO) [facility] Kev Yi [id number] Kev Yi Notes Date Note Type Note Provider Name and Address Organization Details Recorded Time 09/14/2022 text/html This is a 62 year old male who is here for the evaluation and management of nephrolithiasis He has a long-standing history of stone disease.He has passed numerous stones over the last 35 years.He has required intervention for stones in the past, the most recent was around 2007.He recently was evaluated in the Emergency Room for an acute stone episode.He passed several stones shortly thereafter and was discharged home with close follow up.He underwent a KUB on 09/01/2022 which revealed a 3 mm right renal calculus but was otherwise unremarkable. KAVITHA [facility] - [facility] 09/14/2022 11:43:33
--- OUTSIDE RECORDS SUMMARY | 2025-06-04 19:12 | XMS_ITS | Encounter Summary ---
Author Organization [place] Address [address] [place] [address] Care Team Providers Care Real Estate Attorney Name Role Phone Carly Jesus MD Primary Care Provider [phone] Ip, Lucio Prakash MD Unavailable [phone] Zulma Madsen PA-C Unavailable [phone] Ip, Lucio Prakash MD Unavailable [phone] Carly Santos MD Unavailable [phone] Henrique Pulido MD Unavailable Neena Levine MD Unavailable [phone] Henrique Pulido MD Unavailable Marisol Hawthorne PA-C Unavailable [phone] Encounter Details Date Type Department Care Team (Late st Contact Info) Description 08/08/2024 MyC Medical Advice [facility] Insurance Verification [place] Social History Tobacco Use Types Packs/Day Years [...] in an abandoned building, in an overnight longterm, or couch-surfing.) Yes 08/01/2024 Are you worried [...] on file Legal Sex Male 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 Gender Identity Not on file Sexual Orientation Not on file documented as of this encounter Plan of Treatment Upcoming Encounters Date Type Department Care Team (Late st Contact Info) Description 08/02/2025 8:00 PM DEPARTMENT TRAFFIC FREIGHT ROUTER Therapy Visit [facility] [place] [id number] [facility] [address] [place] [address] Marisol Hawthorne PA-C [address] [facility] [address] [place], [place] [id number] 11/14/2025 9:00 AM CDT Office Visit [facility] Sleep [address] [address] Marisol Hawthorne PA-C [address] [place] [id number] documented as of this encounter Visit Diagnoses Not on filedocumented in this encounter Additional Health Concerns Infection Onset Date Last Indicated Resolved Time Rule Out COVID-19 09/03/2024 09/03/2024 09/03/2024 3:44 PM DEPARTMENT TRAFFIC FREIGHT ROUTER Rule Out COVID-19 12/29/2024 12/29/2024 12/29/2024 2:49 AM CDT documented as of this encounter Care Teams Real Estate Attorney Relationship Specialty Start Date End Date Carly Jesus MD [facility] [address] [place] [address] PCP - General Internal Medicine 06/06/24 Lucio Westfall MD [address] [place] [id number] Cardiovascular Disease 08/16/24 Zulma Madsen PA-C [facility] [address] [id number] Assigned Cancer Care Provider 08/21/24 Lucio Westfall MD [address] [place] [id number] Assigned Heart and Vascular Provider 08/21/24 Carly Santos MD [facility], [address] [place], [place] [address] Assigned Surgical Provider 08/21/24 Henrique Pulido MD [address] [place] [id number] Neurology 09/29/24 Neena Levine MD [address] [place] [address] Physician Neurology 10/11/24 Henrique Pulido MD [address] [address] Assigned Neuroscience Provider 10/22/24 Marisol Hawthorne PA-C [address] [place] [address] [address] [address] Assigned Sleep Provider 04/21/25 documented as of this encounter
--- OUTSIDE RECORDS SUMMARY | 2025-06-04 19:12 | XMS_ITS | Clinical Summary ---
Author Organization [facility] Address [address] [place] [address] Care Team Providers Care Western Felt Hat Blocker Name Role Phone Elsewhere, Pcp Primary Care Provider Unavailabl e Source Comments Patient records contain information from all sites at [facility]. For routine questions regarding patient records, call [phone] during business hours, M-F 8:00 AM - 5:00 PM Central Time. 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 Gender Identity Not on file Sexual Orientation Not on file Last Filed Vital Signs Vital Sign Reading Time Taken Comments Blood Pressure 138/101 11/23/2023 4:00 PM CDT Pulse 94 11/23/2023 4:00 PM CDT Temperature 36.5 C (97.7 F) 11/23/2023 4:00 PM CDT Respiratory Rate 16 11/23/2023 4:00 PM CDT Oxygen Saturation 98% 11/23/2023 4:00 PM CDT Inhaled Oxygen Concentration - - Weight 65.5 kg (144 lb 6.4 oz) 11/23/2023 1:10 P M CDT Height - - Body Mass Index - - Plan of Treatment Health Maintenance Due Date Last Done Comments CT Colonography 1960 Cologuard 1960 FIT 1960 Hepatitis C Screening 1960 Depression Screening (Annual PHQ-2) 08/30/2024 Fall Risk Screen (Annual) 08/30/2024 COVID-19 Vaccine ( season) 2025 07/10/2023, 07/01/2022, 01/18/2022, Additional history exists Influenza Vaccine (#1) 2025 , 07/01/2022, 06/15/2021, Additional history exists Fasting Glucose for Diabetes Screening 11/22/2026 11/23/2023, 11/23/2023, 04/18/2023, Additional history exists DTaP,Tdap,and Td Vaccines (3 - Td or Tdap) 07/16/2027 07/16/2017, 09/18/2005 Colonoscopy 12/02/2031 12/01/2021 Colorectal Cancer Screening 12/02/2031 Zoster Vaccines Completed 05/29/2018, 03/2018, 03/23/2016 Pneumococcal vaccine (50+ years) Completed 01/18/2022, 04/01/2018 IPV Vaccines Aged Out No longer eligi ble based on patient's age to complete this topic Procedures Procedure Name Priority Date/Time Associated Diagnosis Comments BASIC METABOLIC PANEL, S/P STAT 11/23/2023 1:51 PM CDT from Last 3 Months or Most Recently Relevant to Health Maintenance Results * (ABNORMAL) Basic Metabolic Panel (11/23/2023 1:51 PM CDT) Potassium, P CANCELED mmol/L 11/23/2023 3:19 PM CDT [facility] Comment: Specimen was hemolyzed. Result canceled by the ancillary. Sodium, P 136 135 - 145 mmol/L 11/23/2023 3:20 PM CDT [facility] Comment:Visible lipemia, bing trifuged prior to analysis Chloride, P 103 98 - 107 mmol/L 11/23/2023 3:20 PM CDT [facility] Comment:Visible lipemia, bing trifuged prior to analysis Bicarbonate, P 20(L) 22 - 29 mmol/L 11/23/2023 2:18 PM CDT [facility] Anion Gap, P 13 7 - 15 11/23/2023 3:20 PM CDT [facility] BUN (Blood Urea Nitrogen), P 19 8 - 24 mg/dL 11/23/2023 2:18 PM CDT [facility] Creatinine 0.99 0.74 - 1.35 mg/dL 11/23/2023 2:18 PM CDT [facility] Estimated GFR (eGFR) 85 >=60 mL/min/BSA 11/23/2023 2:18 PM CDT [facility] Comment: Estimated GFR calculated using the 2020 CKD_EPI creatinine equation. Calcium, Total, P 9.6 8.8 - 10.2 mg/dL 11/23/2023 2:18 PM CDT [facility] Glucose, P 359(H) 70 - 140 mg/dL 11/23/2023 2:18 PM CDT [facility] Blood (Blood, Venous) 11/23/2023 1:51 PM CDT 11/23/2023 1:57 PM CDT us Ford Chowdhury M.D. LAB BLOOD ADD-ON Final Res ult [facility] [address] [place] [address], [facility] STMA [facility] [address] [place] [address] from Last 3 Months or Most Recently Relevant to Health Maintenance Insurance MEDICARE Care Teams Western Felt Hat Blocker Relationship Specialty Start Date End Date Elsewhere, Pcp PCP - General Family Medicine 07/13/20
--- OUTSIDE RECORDS SUMMARY | 2025-06-04 19:12 | XMS_ITS | Clinical Summary ---
Author Organization [facility] Address [address] [place] [id number] Care Team Providers Care Real Estate Office Supervisor Name Role Phone Carly Jesus MD Primary Care Provider [phone] Allergies Active Allergy Reactions Criticality Noted Date Comments Atorvastatin Myalgia Low 06/08/2018 Onset of myalgia two days after starting medication Oxycodone Nausea Only,Other - Describe In Comment Field Unknown 12/05/2013 I don't care for it Medications FreeStyle Ce 3 Sensor for continuous blood glucose monitor (CGM)Indications:T ype 2 diabetes mellitus with hyperglycemia, without long-term current use of insulin (HC) To be used to read blood sugars, follow osteologist directions. Apply every 14 days. 9 Each 3 01/12/20 23 Active ondansetron (ZOFRAN ODT) 4 mg disintegrating tabletIndications: Nausea Place 1 Tablet (4 mg) on the tongue every 8 hours if needed for Nausea/Vomiting. 10 Tablet 05/31/20 23 Active UltiCare Pen Needle 32 gauge x 5/32 (disposable insulin pen needle)Indications :Type 2 diabetes mellitus with hyperglycemia, without long-term current use of insulin (HC) USE TO INJECT INSULIN ONCE DAILY 100 Each 3 05/10/20 24 Active HYDROcodone-acetam inophen (5-325 mg/tablet)Indicati ons:Ureteral stone Take 1-2 Tablets by mouth every 6 hours if needed for Pain. Max acetaminophen dose: 4000 mg in 24 hrs. 15 Tablet 06/02/20 24 Active Additional Information Patient taking differently:1-2 Tablet Oral Q 6H PRN,Pain, for kidney stones, Max acetaminophen dose: 4000 mg in 24 hrs., Reported on 07/20/2024 dicyclomine (BENTYL) 20 mg tablet Take 20 mg by mouth four times daily before meals and at bedtime. 07/14/20 24 Active cholecalciferol (VITAMIN D3) 50,000 unit capsule Take 50,000 units by mouth once weekly. wednesday Active semaglutide (OZEMPIC) 1 mg/dose (4 mg/3 mL) subcutaneous pen Inject 1 mg subcutaneous every Wednesday. Active Lantus Solostar U-100 Insulin 100 unit/mL (3 mL) penIndications:Typ e 2 diabetes mellitus with hyperglycemia, without long-term current use of insulin (HC) Inject 10 units subcutaneous before bedtime. 07/16/20 Active rivaroxaban (XARELTO) 20 mg tablet Take 20 mg by mouth once daily with evening meal. NOT STARTED Active pantoprazole (PROTONIX) 40 mg delayed-release tabletIndications: Lower GI bleed Take 1 Tablet (40 mg) by mouth once daily before a meal. 30 Tablet 07/22/20 24 Active hydrOXYzine HCL (ATARAX) 25 mg tabletIndications: Pruritic rash Take 2 Tablets (50 mg) by mouth at bedtime if needed for Itching for up to 7 days. 21 Tablet 11/10/19 25 Active desonide (TRIDESILON) 0.05 % creamIndications:S eborrheic dermatitis Apply thin layer to affected areas on face and neck 2 times a day until resolved, then as needed. 60 g 2 11/11/19 25 Active clobetasol 0.05% TOPICAL (TEMOVATE) 0.05 % external solutionIndication s:Seborrheic dermatitis Apply thin layer to the scalp 2 times a day until resolved, then as needed. Do not use on face/ears/underar ms/groin. 50 mL 3 11/11/19 25 Active hydrocortisone valerate 0.2 % creamIndications:S eborrheic dermatitis Apply topically to affected area(s) two times daily. 45 g 3 04/06/20 25 Active Active Problems Patient Care Coordination No te Formatting of this note migh t be different from the original. Family is what matters most to Kev. He has 3 adult children and two teenage step children and one young grandson Kev would like his care team to know he is a very busy person with work. He is in the [employer] business. What are Kev's challenges, stressors, or barriers? 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 He also has freq bouts with kidney stones so is never really sure when it will happen. Problem Noted Date Diagnosed Date BRBPR (bright red blood per rectum) 07/21/2024 Colitis 07/15/2024 Nuclear senile cataract of both eyes 08/12/2022 Type 2 diabetes mellitus wit h hyperglycemia, without long-term current use of insulin 09/30/2021 Hepatic steatosis 08/12/2020 Thrombosis superficial vein, arm, acute, left History of DVT (deep vein thrombosis) 06/14/2018 History of gastric ulcer 09/12/2017 Overview (09/12/2017): 5 seen on EGD 1.2015 Presbyopia 07/30/2017 [...] long-term current use of insulin 03/01/2017 12/30/2017 Overview (05/28/2017): Diagnosis 02/2017 CD (contact dermatitis) 03/25/201107/30 Duodenitis 08/12/2020 Epigastric abdominal pain Encounters Date Type Department Care Team Description 05/09/2025 Nurse Triage [facility] Centralized Nurse Triage Carly Jesus MD Headache 05/07/2025 Nurse Triage [facility] [address] [place] [address] Carly Jesus MD Dizziness 04/13/2025 Telephone [facility] [address] [address] Josee Carcamo MD Call Return 04/03/2025 Telephone [facility] [address] [address] Josee Carcamo MD Prior Authorization (desonide (TRIDESILON) 0.05 % cream DENIED) from Last 3 Months Immunizations Immunization Administration Dates Next Due COVID-19 vaccine (Moderna 100mcg/0.5mL) CELIA CHASE 12/04/2020,11/06/2020 Influenza RIV4 (Age 18+ Year s) [...] 2 11/11/2022 Social Connections Answer Date Recorded Do you often feel lonely or isolated from those around you? 0 07/15/2024 Financial Resource Strain Answer Date R ecorded Difficulty of Paying Living Expenses 3 07/15/2024 Difficulty of Paying Living Expenses Not on file 07/15/2024 Food Insecurity Answer Date Recorded Do you worry your food will run out before you are able to buy more? 1 07/15/2024 Transportation Needs Answer Date Record ed Does lack of transportation keep you from medica l appointments? 1 07/15/2024 Does lack of transportation keep you from work, meetings or getting things that you need? 1 07/15/2024 Housing Stability Answer Date Recorded What is your housing situation today? 1 07/15/2024 Interpersonal Safety Answer Date Record ed Are you being hit, kicked, p ushed or yelled at (see row info)? No 10/02/2024 Interpersonal Safety Abuse 12 - 18 Not on file 10/02/2024 Interpersonal Safety Ambulatory Vulnerability No t on file 10/02/2024 Utilities Answer Date Recorded Do you have trouble paying f or utilities (for example, heat, electricity, water, phone)? 1 07/15/2024 Sex and Gender Information Value Date Recorded Sex Assigned at Male 12/18/2021 1:20 PM CDT Legal Sex Male 6:25 AM PULP GRINDER Gender Identity Male 12/18/2021 1:20 PM CDT Sexual Orientation Straight 12/18/2021 1: 20 PM CDT Obstetrics History Last Filed Vital Signs Vital Sign Reading Time Taken Comments Blood Pressure 118/67 11/09/2024 5:09 PM CDT Pulse 73 11/09/2024 5:09 PM CDT Temperature 36.7 C (98 F) 11/09/2024 5:09 PM CDT Respiratory Rate 17 11/09/2024 5:09 PM CDT Oxygen Saturation 97% 11/09/2024 5:09 PM CDT Inhaled Oxygen Concentration - - Weight 63.5 kg (140 lb) 11/09/2024 5:09 PM CDT Height 165.1 cm (5' 5) 10/02/2024 5:28 PM PULP GRINDER Body Mass Index 23.3 10/02/2024 5:28 PM PULP GRINDER Plan of Treatment Upcoming Encounters Date Type Department Care Team (Late st Contact Info) Description 06/20/2025 10:10 AM CDT Office Visit [facility] [address] [place] [address] KAVITHA CHAVEZ [address] Josee Carcamo MD [address] [place] [address] KAVITHA Chavez [phone] Health Maintenance Due Date Last Done Comments RSV vaccine for adults or (1 - Risk 60-74 years 1-dose series) 2018 Fecal testing non-DNA (FIT,FOBT,iFOBT) for age 45-75 12/01/2022 12/01/2021 Medicare Wellness for age 65+ 2023 Depression screening for age 12+ 11/13/2023 11/12/2022, 09/07/2022, 09/07/2022, Additional history exists BMI (ht and wt on same day) for age 18+ 01/12/2024 01/11/2023, 11/24/2022, 09/07/2022, Additional history exists COVID-19 vaccine series (2024- season) 2025 07/10/2023, 07/01/2022, 01/18/2022, Additional history exists Influenza Vaccine (#1) 2025 , 06/15/2021, 06/07/2020, Additional history exists Tetanus booster 07/16/2027 07/16/2017, 09/18/2005 Lipids for age 45-75 01/12/2028 01/11/2023, 12/30/2021, 11/06/2020, Additional history exists Hepatitis C screening for age 18-79 Completed 12/05/2013 Zoster (shingles) series for age 50+ Completed 05/29/2018, 03/06/2018, 03/23/2016 Pneumococcal series for age 50+ Completed 01/18/2022, 04/01/2018 Hepatitis B series for 19+ Aged Out N o longer eligible based on patient's age to complete this topic Goals Goal Patient Goal Type Associated Problems Recent Progress Patient-Stated? Author BLOOD PRESSURE - MAINTAINS BP less than 140/90 Blood Pressure No UtLourdes ledbetter MD Procedures Procedure Name Priority Date/Time Associated Diagnosis Comments LDL CHOLESTEROL,DIRECT Routine 01/11/2023 2:36 PM CDT Type 2 diabetes mellitus with hyperglycemia, without long-term current use of insulin (HC) OCCULT BLOOD IFOBT STOOL STAT 12/01/2021 6:23 PM CDT ANTI HCV Routine 12/05/2013 10:17 AM CDT Need for hepatitis C screening test from Last 3 Months or Most Recently Relevant to Health Maintenance Results * LDL CHOLESTEROL,DIRECT (01/11/2023 2:36 PM CDT) LDL CHOLESTEROL,DI RECT 170 mg/dL 01/12/2023 5:42 PM CDT [facility] PROVIDER ORDERED STATUS RANDOM 01/12/2023 5:42 PM CDT [facility] Blood BLOOD SPECIMEN / Unknown Venipuncture / Unknown 01/11/2023 2:36 PM CDT 01/11/2023 2:37 PM CDT Narrative [facility] - 01/12/2023 5:42 PM CDT Optimal <100 mg/dl Near Optimal 100-129 mg/dl Borderline High 130-159 mg/dl High 160-189 mg/dl Very High >=190 mg/dl us Tye Jordan MD CHEMISTRY Final Result [facility] [address] [place] [address], [place] * (ABNORMAL) OCCULT BLOOD IFOBT STOOL (12/01/2021 6:23 PM CDT) STOOL BLOOD ,IFOBT Positive(A ) Negative 12/01/2021 6:39 PM CDT [facility] Stool STOOL SPECIMEN / Unknown Non-Blood / Unknown 12/01/2021 6:23 PM CDT 12/01/2021 6:30 PM CDT us Ra Gomez MD LABORATORY Final Re sult [facility] [address] [place] [address] * ANTI HCV [[id number]] (12/05/2013 10:17 AM CDT) ANTI HCV Non-reacti ve [facility] Blood specimen (specimen) BLOOD SPECIMEN / Unknown 12/05/2013 10:17 AM CDT 12/05/2013 10:07 AM CDT us Lourdes Pereyra MD SEND OUTS Final Resul t [facility] [place]NAL ZIP [address] [address] [place] [address] from Last 3 Months or Most Recently Relevant to Health Maintenance Insurance [facility] MEDICARE PART A HB ONLY MEDICARE PART B HB ONLY [facility] MR Advance Directives * Full Code (Latest Code Status on File) Date Activated Date Inactivated Comments 07/21/2024 12:10 AM 07/21/2024 2:52 PM Question Answer Comments Code Status Discussion: Reviewed Preferences * Full Code Date Activated Date Inactivated Comments 07/15/2024 12:51 AM 07/16/2024 6:25 PM Question Answer Comments Code Status Discussion: Reviewed Preferences * Full Code Date Activated Date Inactivated Comments 08/31/2022 6:31 PM 09/01/2022 4:57 PM Question Answer Comments Code Status Discussion: Reviewed Preferences * Full Code Date Activated Date Inactivated Comments 08/10/2017 1:29 PM 08/10/2017 6:21 PM * Full Code Date Activated Date Inactivated Comments 09/28/2016 9:39 AM 09/28/2016 2:39 PM Care Teams Real Estate Office Supervisor Relationship Specialty [place] [address] [place] [address] PCP - General Internal Medicine 03/27/24
--- OUTSIDE RECORDS SUMMARY | 2025-06-04 19:12 | XMS_ITS | Encounter Summary ---
Author Organization [facility] Address [address] [place] [address] Care Team Providers Care Kiln Stoker Name Role Phone Carly Jesus MD Primary Care Provider [phone] Ip, Lucio Prakash MD Unavailable [phone] Zulma Madsen PA-C Unavailable [phone] Ip, Lucio Prakash MD Unavailable [phone] Carly Santos MD Unavailable [phone] Henrique Pulido MD Unavailable Neena Levine MD Unavailable [phone] Henrique Pulido MD Unavailable Marisol Hawthorne PA-C Unavailable [phone] Encounter Details Date Type Department Care Team (Late st Contact Info) Description 07/24/2024 External Order Results [facility] [address] [place] [address] Outside, Provider Social History Tobacco Use Types Packs/Day [...] you got money to buy more? No 07/06/2024 Within the past 12 months, d id the food you bought just not last and you didn t have money to get more? No 07/06/2024 Housing Stability Answer Date Recorded Do you have housing? (Aretha gerber is defined as stable permanent housing and does not include staying outside in a car, in a tent, in an abandoned building, in an overnight intermediate, or couch-surfing.) Yes 07/06/2024 Are you worried about losing your housing? No 07/06/2024 Financial Resource Strain Answer Date R ecorded Within the past 12 months, h ave you or your family members you live with been unable to get utilities (heat, electricity) when it was really needed? No 07/06/2024 Transportation Needs Answer Date Record ed Within the past 12 months, h as lack of transportation kept you from medical appointments, getting your medicines, non-medical meetings or appointments, work, or from getting things that you need? 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 Gender Identity Not on file Sexual Orientation Not on file documented as of this encounter Plan of Treatment Upcoming Encounters Date Type Department Care Team (Late st Contact Info) Description 08/02/2025 8:00 PM PHOTOCOMPOSITION KEYBOARD OPERATOR Therapy Visit [facility] Sleep [address] [place] [address] Marisol Hawthorne PA-C [address] [facility] [address] [place] [id number] 11/14/2025 9:00 AM CDT Office Visit [address] [address] Marisol Hawthorne PA-C [address] [facility] [address] [place] [address] documented as of this encounter Procedures Procedure Name Priority Date/Time Associated Diagnosis Comments T4 FREE Routine 08/07/2024 1:40 PM PHOTOCOMPOSITION KEYBOARD OPERATOR T3 TOTAL Routine 08/07/2024 1:40 PM PHOTOCOMPOSITION KEYBOARD OPERATOR CBC WITH PLATELETS & DIFFERENTIAL Routine 07/24/2024 4:25 PM PHOTOCOMPOSITION KEYBOARD OPERATOR TSH Routine 07/24/2024 4:25 PM PHOTOCOMPOSITION KEYBOARD OPERATOR BASIC METABOLIC PANEL Routine 07/24/2024 4:25 PM PHOTOCOMPOSITION KEYBOARD OPERATOR documented in this encounter Results * T3 total (08/07/2024 1:40 PM PHOTOCOMPOSITION KEYBOARD OPERATOR) T3 (External) 128 85 - 202 ng/dL NON-INTERFACED (ONBASE SCANS) Blood BLOOD SPECIMEN / Unknown 08/07/2024 1:40 PM PHOTOCOMPOSITION KEYBOARD OPERATOR Narrative BREEZE PFT - 08/17/2024 12:39 PM PHOTOCOMPOSITION KEYBOARD OPERATOR Verified by Jas Bass on 08/17/2024. us Provider Outside LAB - BLOOD ORDERABLES Edited R esult - Final BREEZE PFT NON-INTERFACED (ONBASE SCANS) * T4 free (08/07/2024 1:40 PM PHOTOCOMPOSITION KEYBOARD OPERATOR) Thyroxine Free (External) 1.09 0.90 - 1.70 g/dL NON-INTERFACED (ONBASE SCANS) Blood BLOOD SPECIMEN / Unknown 08/07/2024 1:40 PM PHOTOCOMPOSITION KEYBOARD OPERATOR Narrative BREEZE PFT - 08/17/2024 12:39 PM PHOTOCOMPOSITION KEYBOARD OPERATOR Verified by Jas Bass on 08/17/2024. us Provider Outside LAB - BLOOD ORDERABLES Edited R esult - Final BREEZE PFT NON-INTERFACED (ONBASE SCANS) * (ABNORMAL) CBC with Platelets & Differential (07/24/2024 4:25 PM PHOTOCOMPOSITION KEYBOARD OPERATOR) WBC Count (External) 6.12 4.0 - 11.0 10*3/uL NON-INTERFACE D (ONBASE SCANS) RBC Count (External) 4.22(L) 4.4 - 5.9 10*6/uL NON-INTERFACE D (ONBASE SCANS) Hemoglobin (External) 13.9 13.3 - 17.7 G/dL NON-INTERFACE D (ONBASE SCANS) Hematocrit (External) 40.6 40.0 - 53.0 % NON-INTERFACE D (ONBASE SCANS) MCV (External) 96.2 78 - 100 fL NON-INTERFACE D (ONBASE SCANS) MCH (External) 32.9 26.5 - 33.0 pg NON-INTERFACE D (ONBASE SCANS) MCHC (External) 34.2 31.5 - 36.5 g/dL NON-INTERFACE D (ONBASE SCANS) RDW (External) 12.3 % NON-I NTERFACE D (ONBASE SCANS) Platelet Count (External) 258 150 - 450 10*3/uL NON-INTERFACE D (ONBASE SCANS) % Eosinophils (External) 1.3 0 - 6 % NON-INTERFACE D (ONBASE SCANS) Absolute Eosinophils (External) 0.08 0 - 0.7 10*3/uL NON-INTERFACE D (ONBASE SCANS) % Neutrophils (External) 60.7 40 - 75 % NON-INTERFACE D (ONBASE SCANS) Absolute Neutrophils (External) 3.72 1.6 - 8.3 10*3/uL NON-INTERFACE D (ONBASE SCANS) % Lymphocytes (External) 28.3 20 - 48 % NON-INTERFACE D (ONBASE SCANS) Absolute Lymphocytes (External) 1.73 0.8 - 5.3 10*3/uL NON-INTERFACE D (ONBASE SCANS) % Monocytes (External) 8.8 0 - 12 % NON-INTERFACE D (ONBASE SCANS) Absolute Monocytes (External) 0.54 0 - 1.3 10*3/uL NON-INTERFACE D (ONBASE SCANS) % Basophils (External) 0.7 0 - 1 % NON-INTERFACE D (ONBASE SCANS) Absolute Basophils (External) 0.04 0 - 0.2 10*3/uL NON-INTERFACE D (ONBASE SCANS) % Immature Granulocytes (External) 0.2 0 - 0.4 % NON-INTERFACE D (ONBASE SCANS) Absolute Immature Granulocytes (External) 0.01 0 - 0.03 10*3/uL NON-INTERFACE D (ONBASE SCANS) Blood BLOOD SPECIMEN / Unknown 07/24/2024 4:25 PM PHOTOCOMPOSITION KEYBOARD OPERATOR Narrative NON-INTERFACED (ONBASE SCANS) - 08/17/2024 12:39 PM PHOTOCOMPOSITION KEYBOARD OPERATOR Verified by Jas Bass on 08/17/2024. Provider Outside LAB - BLOOD ORDERABLES Edited Defense Mobile Performing Organization Address [facility] de Phone Number NON-INTERFACED (ONBASE SCANS) * (ABNORMAL) TSH (07/24/2024 4:25 PM PHOTOCOMPOSITION KEYBOARD OPERATOR) Pathologist [facility] TSH (External) 0.530(L) 0.66 - 5.45 uIU/mL NON-INTERFACE D (ONBASE SCANS) Blood BLOOD SPECIMEN / Unknown 07/24/2024 4:25 PM PHOTOCOMPOSITION KEYBOARD OPERATOR Narrative BREEZE PFT - 08/17/2024 12:39 PM PHOTOCOMPOSITION KEYBOARD OPERATOR Verified by Jas Bass on 08/17/2024. Provider Outside LAB - BLOOD ORDERABLES Edited Defense Mobile Performing Organization Address [facility] Co de Phone Number BREEZE PFT NON-INTERFACED (ONBASE SCANS) * (ABNORMAL) Basic metabolic panel (07/24/2024 4:25 PM PHOTOCOMPOSITION KEYBOARD OPERATOR) Sodium (External) 136.1 133 - 144 mmol/L NON-INTERFACED (ONBASE SCANS) Potassium (External) 3.77 3.4 - 5.3 mmol/L NON-INTERFACED (ONBASE SCANS) Chloride (External) 103.6 94 - 109 mmol/L NON-INTERFACED (ONBASE SCANS) CO2 (External) 24.3 20 - 32 mmol/L NON-INTERFACED (ONBASE SCANS) Anion Gap (External) 12.0 3 - 14 Ratio NON-INTERFACED (ONBASE SCANS) Glucose (External) 123(H) 70 - 99 mg/dL NON-INTERFACED (ONBASE SCANS) Urea Nitrogen (External) 17 7 - 30 g/dL NON-INTERFACED (ONBASE SCANS) Creatinine (External) 0.73 0.66 - 1.25 mg/dL NON-INTERFACED (ONBASE SCANS) BUN/Creatinine Ratio (External) 23 Ratio NON-INTERFACED (ONBASE SCANS) Calcium (External) 9.2 8.5 - 10.1 mg/dL NON-INTERFACED (ONBASE SCANS) GFR Estimated (External) 100 ml/min/1.7 3m2 NON-INTERFACED (ONBASE SCANS) Blood BLOOD SPECIMEN / Unknown 07/24/2024 4:25 PM PHOTOCOMPOSITION KEYBOARD OPERATOR Narrative MUNA PFT - 08/17/2024 12:39 PM PHOTOCOMPOSITION KEYBOARD OPERATOR Verified by Jas Bass on 08/17/2024. us Provider Outside LAB - BLOOD ORDERABLES Edited R esult - Final BREEZNunu PFT NON-INTERFACED (ONBASE SCANS) documented in this encounter Visit Diagnoses Not on filedocumented in this encounter Additional Health Concerns Infection Onset Date Last Indicated Resolved Time Rule Out COVID-19 09/03/2024 09/03/2024 09/03/2024 3:44 PM PHOTOCOMPOSITION KEYBOARD OPERATOR Rule Out COVID-19 12/29/2024 12/29/2024 12/29/2024 2:49 AM CDT documented as of this encounter Care Teams Kiln Stoker Relationship Specialty Start Date End Date Carly Jesus MD [facility] [address] [place] [address] PCP - General Internal Medicine 06/06/24 Lucio Westfall MD [address] [place] [address] Cardiovascular Disease 08/16/24 Zulma Madsen PA-C [facility] [address] [address] Assigned Cancer Care Provider 08/21/24 Lucio Westfall MD [address] [place] [address] Assigned Heart and Vascular Provider 08/21/24 Carly Santos MD [facility] [address] [facility] [address] [place] [address] Assigned Surgical Provider 08/21/24 Henrique Pulido MD [address] [id number] Neurology 09/29/24 Neena Levine MD [address] [place], [place] [address] Physician Neurology 10/11/24 Henrique Pulido MD [address] [address] Assigned Neuroscience Provider 10/22/24 Marisol Hawthorne PA-C [address] [place] [address] Assigned Sleep Provider 04/21/25 documented as of this encounter
[2025-06-04 19:16] VITALS: BP 140/80; PULSE 89; RESP 16; TEMP 37; O2SAT 98; BMI 23.0
--- NOTE | 2025-06-04 19:37 | CRLHL7_ITS ---
For Patients: As a result of the Century Cures Act, medical imaging exams and procedure reports are released immediately into your electronic medical record. You may view this report before your referring provider. If you have questions, please contact your health care provider. INDICATION: Acute stroke, left arm numbness. TECHNIQUE: CTA head using intravenous contrast with bolus tracking, 3D angiographic rendering using maximum intensity projection (MIP) and images permanently archived. CTA neck using intravenous contrast with bolus tracking, 3D angiographic rendering using maximum intensity projection (MIP) and images permanently archived. FINDINGS: CTA head: There is normal opacification of the intracranial vasculature. There is no large vessel occlusion or significant intracranial stenosis. No aneurysm is identified. CTA neck: There is left carotid atherosclerosis. There is no significant carotid artery stenosis or dissection. There is no significant vertebral artery stenosis or dissection. IMPRESSION: No acute intracranial abnormality at CTA. No significant carotid or vertebral artery stenosis or dissection. Please note that all CT scans at this facility use dose modulation, iterative reconstruction, and/or weight-based dosing when appropriate to reduce radiation dose to as low as reasonably achievable. Dictated by Kit Cain MD @ 06/05/2025 7:10:50 AM (Electronically Signed)
--- NOTE | 2025-06-04 19:37 | CRLHL7_ITS ---
For Patients: As a result of the Century Cures Act, medical imaging exams and procedure reports are released immediately into your electronic medical record. You may view this report before your referring provider. If you have questions, please contact your health care provider. Indication: Left distal arm numbness Technique: Noncontrast CT through the head with multiplanar reformats Comparison: None Findings: Brain: No acute hemorrhage. No acute infarct. No significant mass effect or midline shift. No gross evidence of a mass lesion or cerebral edema. Mild global parenchymal volume loss. Ventricles: No acute abnormality appreciated. Orbits, sinuses, mastoids: No acute abnormality appreciated. Calvarium and soft tissues: No acute abnormality appreciated. Impression: No acute abnormality appreciated. Please note that all CT scans at this facility use dose modulation, iterative reconstruction, and/or weight-based dosing when appropriate to reduce radiation dose to as low as reasonably achievable. Dictated by Frederic Cantu MD @ 06/04/2025 9:05:13 PM (Electronically Signed)
--- NOTE | 2025-06-04 19:39 | ED.GENADULT ---
HPI - General Adult General Date Seen: 06/04/25 Chief complaint: Headache/Migraine Stated complaint: Headache and left arm feels numb Time Seen by Provider: 06/04/25 19:26 Source: patient Mode of arrival: ambulatory Limitations: no limitations History of Present Illness HPI narrative: Patient is a 65-year-old male presenting to emergency department for a headache and left on and foot numbness and tingling since he woke up from bed yesterday. He is concerned because he had a previous stroke 10 months ago and then had another stroke in December. Symptoms that time were full left-sided numbness. He states this time does not feel nearly as bad. Currently is only numbness is to the C8 dermatome on the left arm below the elbow. He thinks he might have a little bit tingling to the plantar aspect of his foot too. His bigger concern is he has a headache. Unsure if he has had headaches like this before but states and is in his left forehead radiates to the back of his head. States it got severe today nothing makes it better. States with his previous strokes he had weakness also but denies any weakness at this time. Denies fevers, chills, chest pain, shortness of breath, abdominal pain, diarrhea, constipation, vision changes. No other concerns noted at this time Related Data Home Medications ?Medication ?Instructions ?Recorded ?Confirmed aspirin 81 mg chewable tablet 81 mg PO DAILY 06/04/25 06/04/25 (Roque Chewable Low Dose Aspirin) atorvastatin 20 mg tablet 20 mg PO QPM 06/04/25 06/04/25 cyanocobalamin (vitamin B-12) 1,000 mcg PO DAILY 06/04/25 06/04/25 1,000 mcg tablet insulin glargine 100 unit/mL 10 unit subcut QPM 06/04/25 06/04/25 subcutaneous solution (Lantus U-100 Insulin) semaglutide 2 mg/dose (8 mg/3 mL) mg subcut 06/04/25 subcutaneous pen injector (Ozempic) Allergies Allergy/AdvReac Type Severity Reaction Status Date / Time oxycodone AdvReac Nausea Verified 06/04/25 19:23 Review of Systems Status of ROS: Reports: 10 or more systems reviewed and unremarkable except as noted in History and below PFSH PFS Social History Smoking Status: Never smoker Do you use any of these nicotine containing products: None Second hand tobacco smoke exposure: No How often do you have a drink containing alcohol: never How often do you have six or more drinks on one occasion: Never AUDIT-C Alcohol total score: 0 Non-prescribed substance use: denies use service: No Exam Narrative: Exam Narrative: Const: Well-nourished, Well-developed, in mild distress Eyes: PERRL, no conjunctival injection, and symmetrical lids HENT: Atraumatic external nose and ears. Moist mucous membranes. Neck: Symmetric, trachea midline, No thyromegaly. CVS: RRR, No murmurs or gallops. Peripheral pulses 2+ and equal in all extremities RESP: Unlabored respiratory effort. Clear to auscultation bilaterally. GI: Nontender/Nondistended, No rebound or guarding. MSK:Extremities w/o deformity, Normal Active ROM Skin: Warm, Dry. No rashes or lesions. Neuro: Normal Muscle tone, Cranial nerves 2-12 grossly intact, normal ajus-cx-pfml, normal fexecl-ey-gthu, normal gait, normal strength 5/5 upper lower extremities bilaterally, normal sensation lower extremities bilaterally, decreased sensation to the left arm at the C8 dermatome from the elbow down. Normal sensation to the upper arm bilaterally. normal rapid alternating movements. Psych: Awake, Alert, & Oriented x3. Appropriate mood and affect. Const: Vital Signs, click to edit/add: Vital Signs - 24 hr 06/04/25 19:16 Temperature 98.6 F Pulse Rate [Pulse Oximeter] 89 Respiratory Rate 16 Blood Pressure [Ri ght Upper Arm] 140/80 H Pulse Oximetry 98 Oxygen Delivery Me thod Room Air Course Vital Signs Vital signs: Initial Vital Signs Temperature 98.6 F 06/04/25 19:16 Temperature Source Temporal Artery Scan 06/04/25 19:16 Pulse Rate 89 06/04/25 19:16 Respiratory Rate 16 06/04/25 19:16 Blood Pressure 140/80 H 06/04/25 19:16 Blood Pressure Mean 100 06/04/25 19:16 Blood Pressure Position Sitting 06/04/25 19:16 Pulse Oximetry 98 06/04/25 19:16 Oxygen Delivery Method Room Air 06/04/25 19:16 Vital Signs Temperature 98.6 F 10/06/25 19:16 Pulse Rate 89 06/04/25 19:16 Respiratory Rate 16 06/04/25 19:16 Blood Pressure 140/80 H 06/04/25 19:16 Pulse Oximetry 98 06/04/25 19:16 Oxygen Delivery Method Room Air 06/04/25 19:16 Temperature 98.6 F 06/04/25 19:16 Pulse Rate 89 06/04/25 19:16 Respiratory Rate 16 06/04/25 19:16 Blood Pressure 140/80 H 06/04/25 19:16 Pulse Oximetry 98 06/04/25 19:16 Oxygen Delivery Method Room Air 06/04/25 19:16 Medications Administered Medications: Discontinued Medications Generic Name Dose Route Start Last Admin Trade Name José Luisq PRN Reason Stop Dose Admin Diphenhydramine HCl 25 mg 06/04/25 19:36 06/04/25 19:55 Diphenhydramine 50 Mg/Ml Inj IVP 06/04/25 19:37 25 mg ONCE ONE Administration Lactated Ringer's 1,000 mls @ 1,000 mls/hr 06/04/25 19:36 06/04/25 20:08 Lactated Ringers 1000 Ml IV 06/04/25 20:35 1,000 mls/hr .Q1H ONE Administration Ketorolac Tromethamine 15 mg 06/04/25 19:36 06/04/25 19:58 Ketorolac 15 Mg/Ml Inj IVP 06/04/25 19:37 15 mg ONCE ONE Administration Metoclopramide HCl 10 mg 06/04/25 19:36 06/04/25 20:01 Metoclopramide Hcl 5 Mg/Ml Inj IVP 06/04/25 19:37 10 mg ONCE ONE Administration Medical Decision Making MDM Narrative Medical decision making narrative: Patient is a 65-year-old male presenting for numbness to his left arm. He also initially stated some numbness to the plantar aspect of his left foot by my exam there is no numbness to the foot. The numbness to left arm follows the C8 dermatome up to the elbow. Seems most likely to be a nerve compression. Especially considering he woke up with the symptoms yesterday. Despite that with his history of will do CT scan of his head and a CTA head and neck for better evaluation. Will also check CBC and BMP. He is also having headache in the CT will help evaluate for any intracranial abnormalities. Will give him a migraine cocktail. He is feeling much better after the migraine cocktail. Lab work shows no concerning abnormalities. Imaging reviewed by myself and the radiologist shows no acute concerning abnormalities. This numbness most likely a nerve impingement concerning how localized to this. His headache is doing better and he is safe for discharge. He is agreeable to this plan. Lab Data Labs: Lab Results 06/04/25 Range/Units 20:00 WBC 6.63 (4.50-11.00) K/uL RBC 4.38 (4.30-5.90) m/uL Hgb 14.4 (13.5-17.5) gm/dL Hct 42.1 (37.0-53.0) % MCV 96 (80-100) fL MCH 33 (26-34) pg MCHC 34 (32-36) gm/dL RDW Coeff of Elia 11.7 (11.5-15.5) % Plt Count 196 (140-440) K/uL Neut % (Auto) 61.1 (42.0-72.0) % Lymph % (Auto) 26.8 (20-44) % Toombs % (Auto) 10.1 (0.0-11.0) % Eos % (Auto) 1.5 (0.0-7.0) % Baso % (Auto) 0.3 (0.0-3.0) % Neut # (Auto) 4.05 (1.7-7.0) K/uL Lymph # (Auto) 1.78 (0.90-2.90) K/uL Toombs # (Auto) 0.70 (0.00-0.90) K/UL Eos # (Auto) 0.10 (0.00-0.50) K/uL Baso # (Auto) 0.02 (0.00-0.30) K/uL Abs Immat Gran (auto) 0.01 (0.00-0.30) K/uL Imm/Tot Granulo (auto) 0.2 % Sodium 135 (135-149) mmol/L Potassium 4.1 (3.6-5.1) mmol/L Chloride 106 (96-114) mmol/L Carbon Dioxide 23 (20-32) mmol/L Anion Gap 6 L (7-15) mEq/L BUN 17 (7-30) mg/dL Creatinine 0.9 (0.5-1.5) mg/dL Estimated Creat Clear 62.35 Estimated GFR 94 ml/min Glucose 84 (60-115) mg/dL Calcium 8.7 (8.4-10.6) mg/dL Imaging Data CT scan - head: Attestation: I have reviewed the pertinent imaging results. Radiologist's impression: No acute abnormality appreciated. Please note that all CT scans at this facility use dose modulation, iterative reconstruction, and/or weight-based dosing when appropriate to reduce radiation dose to as low as reasonably achievable. Dictated by Frederic Cantu MD @ 06/04/2025 9:05:13 PM CTA head and neck: Attestation: I have reviewed the pertinent imaging results. Radiologist's impression: Preliminary Report: Indication: Left distal arm numbness Technique: CT angiogram of the head and neck following 95 mL Isovue 370 IV contrast. Multiplanar MIP images obtained. Comparison: None Findings: Preliminary report, full report to follow. Impression: CTA head: No acute abnormality appreciated. CTA neck: No acute abnormality appreciated. Dictated by Frederic Cantu MD @ 06/04/2025 9:07:49 PM Discharge Plan Discharge Clinical Impression: Radiculopathy affecting upper extremity Headache Qualifiers: Headache type: unspecified Headache chronicity pattern: acute headache Intractability: not intractable Qualified Code(s): R51.9 - Headache, unspecified Patient Disposition: Home, Self-Care Condition: Improved Instructions: Acute Headache (DC) Additional Instructions: I believe the numbness in your hand is from a nerve impingement. This should improve over the next week. If things are not getting better recommend close follow-up with her primary care provider. I also recommend close follow-up if the headache persists. Prescriptions: No Action atorvastatin 20 mg tablet 20 mg PO QPM cyanocobalamin (vitamin B-12) 1,000 mcg tablet 1,000 mcg PO DAILY aspirin [Roque Chewable Aspirin] 81 mg tablet,chewable 81 mg PO DAILY insulin glargine [Lantus U-100 Insulin] 100 unit/mL solution 10 unit subcut QPM Ozempic 2 mg/dose (8 mg/3 mL) pen injector SUBCUT Patient Comments: [NO ORIGINAL SIG] Follow Up/Referrals: Carly Jesus MD [Primary Care Provider, Internal Medicine] Stand Alone Forms: [employer] Info Instructions
[2025-06-04] MEDS: METOCLOPRAMIDE HCL 5 MG/ML INJ 10 MG IVP (20:01)
[2025-06-04] MEDS: LACTATED RINGERS 1000 ML 1,000 ML IV (20:08)
[2025-06-04 20:10] LABS: Hematocrit* 42.1 % (37.0-53.0); Hemoglobin* 14.4 gm/dL (13.5-17.5); Immature Granulocytes Abs Auto 0.01 K/uL (0.00-0.30); Immature Granulocytes Pct Auto 0.2 %; Lymphocytes Absolute Auto 1.78 K/uL (0.90-2.90); Mean Corpuscular HGB Conc 34 gm/dL (32-36); Mean Corpuscular Hemoglobin 33 pg (26-34); Mean Corpuscular Volume 96 fL (80-100); RDW Coefficient of Variation % 11.7 % (11.5-15.5); Red Blood Count* 4.38 m/uL (4.30-5.90); White Blood Count* 6.63 K/uL (4.50-11.00)
[2025-06-04 20:24] LABS: Chloride* 106 mmol/L (96-114); Potassium* 4.1 mmol/L (3.6-5.1); Slide Review Reflex No; Sodium* 135 mmol/L (135-149)
[2025-06-04 20:27] LABS: Anion Gap 6 mEq/L (7-15); Blood Urea Nitrogen* 17 mg/dL (7-30); Carbon Dioxide* 23 mmol/L (20-32); Creatinine* 0.9 mg/dL (0.5-1.5); Est. Creatinine Clearance* 62.35; Estimated Glomerular Filt Rate 94 ml/min
[2025-06-04 20:28] LABS: Calcium* 8.7 mg/dL (8.4-10.6); Glucose* 84 mg/dL (60-115)
[2025-06-04 21:24] VITALS: BP 138/70; PULSE 64; RESP 16; TEMP 36.7
== END 2025-06-04 21:53 | disposition home or self-care (01) ==
PROVIDERS: Emergency Provider Student in an Organized Health Care Education/Training Program; PCP Pediatrics
DX: R51.9 Headache, unspecified (principal); M54.10 Radiculopathy, site unspecified; R20.0 Anesthesia of skin
CPT/HCPCS: 36415; 70450; 70496; 70498; 80048; 85025; 96361; 96374; 96375; 99284; 99285; J1200; J1885; J2765; J7120; Q9967

== ENCOUNTER 2025-07-07 23:00 | Emergency (ER) | payer MEDICARE, SELFPAY ==
--- OUTSIDE RECORDS SUMMARY | 2025-01-03 00:28 | XMS_ITS | Continuity of Care Document ---
Author Organization [facility] Address [address] [address] [place] [address] Phone Care Team Providers Care Polo Coach Name Role Phone Rachid Zazueta MD Unavailable Unavailable Allergies, Adverse Reactions, Alerts Substance Reaction Status Criticality oxycodone Nausea/vomiting Active No Informati on Medications Medication Instructions Dosage Effective Dates (start - stop) Status Comments VITAMIN D3 (unknown strength) Not Available - Active Ozempic 1 mg/dose (4 mg/3 mL) subcutaneous pen injector inject (1MG) by subcutaneous route every week on the same day of each week 1 MG - Active Insulin unknown inject 0.1 milliliter by injection route every day - Active dicyclomine 20 mg tablet take 1 tablet by oral route 2 times every day as needed for abdominal pain - Active Pepto-Bismol 262 mg tablet Take 2 tablet three times a day - Active tetracycline 500 mg capsule take 1 capsule by oral route 4 times every day 1hour before or 2 hours after meals - Active metronidazole 250 mg tablet take 1 tablet by oral route every 6 hours for 14 days with meals and at bedtime - Active Protonix 40 mg tablet,delayed release take 1 tablet by oral route 2 times every day 40 MG - Active pantoprazole 40 mg tablet,delayed release take 1 tablet by oral route 2 times every day 40 MG - Active simvastatin 40 mg tablet take 1 Tablet by oral route every day in the evening 40 MG - Active sertraline 100 mg tablet take 1 Tablet by oral route 2 times every day 100 MG - Active Procedures Procedure Date Offic/outpt E&m Estab Mod-hi 2 24 Ugi Endo; W/bx 1/mx Init Hosp-da E&m Mod Severity 4 Offic/outpt E&m Estab Mod-hi 2 22 Ugi Endo; W/bx 1/mx Level Iv-surg Path Gross/micro 21 Established Level 4 Routine Serum Collection Gg; Iga, Igd, Igg, Igm, Ea Virtual Visit E&M New Low-Mod - Min Advance Directives Directive Yes / No Effective Date File Name No Information Encounters Encounter Description Practice Location Reason(s) For Visit Diagnoses Date Provider Providers Copied on Encounter [facility], [address] [address], [place], [place], [id number], [place] tel:[phone] [facility] No Information 5 Min MD Rashid. [address], [id number], [place]. tel:[phone] Offic/outpt E&m Estab Mod-hi 2 [facility], [address] [address], [place], [place], [id number], [place] tel:[phone] [facility] GI Symptoms or Concerns (chief complaint) RLQ abdominal painColitisH. pylori infectionGastro esophageal reflux disease with esophagitis without hemorrhage 4 Yokasta Handy. [address] [facility], [address], [id number], [place]. tel:[phone] Referring Provider: Referral Self, USE FOR SELF REFERRALS. [facility], [address] [address], [place], [place], [id number], [place] tel:[phone] [facility] No Information 4 Maxime Allan. [address] [facility], [address], [id number], [place]. tel:[phone] [facility], [address] [address], [place], [place], [id number], [place] tel:[phone] [facility] H. pylori infection 4 Jacob Mason. [address] [facility], [address], [place], [place], [id number], [place]. tel:[phone] [facility], [address] [address], [place], [id number], [place] tel:[phone] [facility] No Information 4 Angela Masters. [address] [facility], [facility] [address], [place], [place], [id number], [place]. tel:[phone] Referring Provider: Guerrero Sanchez, [address] [facility] [address], [place], [address] . tel:[phone] Init Hosp-da E&m Mod Severity [facility], [address] [address], [place], [id number], [place] tel:[phone] [facility] No Information 4 Tracy Marshall. [address] [facility], [facility] [address], [place], [place], [id number], [place]. tel:[phone] Referring Provider: Guerrero Sanchez, [address] [facility] [address], [place], [address] . tel:[phone] Offic/outpt E&m Estab Mod-hi 2 [facility], [address] [address], [place], [id number], [place] tel:[phone] [facility] GI Symptoms or Concerns (chief complaint) Periumbilical abdominal pain 2 Pb Menard. [address] [facility], [address], [place], [place], [id number], [place]. tel:[phone] Referring Provider: Calvin Phelan MD, [address] [facility] [address], [place], [address]. tel:[phone] [facility], [address] [address], [place], [id number], [place] tel:[phone] [facility] No Information 2 Markel Chiu. [address] [facility], [address], [place], [address], [place]. [phone] [facility], [address] [address], [place], [id number], [place] tel:[phone] [facility] No Information 1 Markel Chiu. [address] [facility], [facility] [address], [place], [id number], [place]. tel:[phone] [facility], [address] [address], [place], [id number], [place] tel:[phone] [facility] Upper abdominal pain, unspecifiedGast roesophageal reflux disease with esophagitis without hemorrhageDisea se of stomach and duodenum, unspecifiedUppe r abdominal pain, unspecifiedDise ase of stomach and duodenum, unspecified 1 Markel Chiu. [address] [facility], [address], [id number], [place]. tel:[phone] Referring Provider: Referral Self, USE FOR SELF REFERRALS. Established Level 4 [facility], [address] [address], [place], [place], [id number], [place] tel:[phone] [facility] GI Symptoms or Concerns (chief complaint) Upper abdominal pain 1 Bruno Jim. [address] [facility], [facility] [address], [place], [id number], [place]. tel:[phone] Referring Provider: Referral Self, USE FOR SELF REFERRALS. [facility], [address] [address], [place], [place], [id number], [place] tel:[phone] [facility] No Information 1 Neena Dougherty. [address] [facility], [address], [id number], [place]. tel:[phone] [facility], [address] [address], [place], [id number], [place] tel:[phone] [facility] Diarrhea, unspecified 0 [facility] GABRIELLE Fenton. [address] [place] [address], [id number], [place]. tel:[phone] Referring Provider: Referral Self, USE FOR SELF REFERRALS. Virtual Visit E&M New Low-Mod 20-29 Min [facility], [address] [address], [place], [id number], [place] tel:[phone] [facility] GI Symptoms or Concerns (chief complaint) Diarrhea, unspecified typePain of upper abdomen 0 [facility] GABRIELLE Fenton. [address] [place] [address], [id number], [place]. tel:[phone] Referring Provider: [place], [address] [place], [address]. tel:[phone] [facility], [address] [address], [place], [id number], [place] tel:[phone] [facility] No Information 0 Neena Dougherty. [address] [place] [address], [id number], [place]. tel:[phone] Family History Family Member Type Diagnosis Age At Onset Son Problem (finding) Alive and well Daughter Problem (finding) Galactosemia Half brother (M) Problem (finding) Alive and well Half sister (M) Problem (finding) Alive and well Mother Problem (finding) Alive and well Immunizations Vaccine Date Status Comments Influenza, adjuvanted, inactivated, quadrivalent, injectable, preservative free administered Note: [employer] bi-directional interface ; Source: Other Registry SARS-COV-2 (COVID-19) vaccin e, mRNA, spike protein, LNP, preservative free, 50 mcg/0.5 mL dose administered Note: [facility] bi-direct ional interface ; Source: Other Registry Respiratory syncytial virus (RSV), vaccine, recombinant, protein subunit RSV prefusion F, adjuvant reconstituted, 0.5 mL, preservative free administered Note: [facility] bi-direct ional interface ; Source: Other Registry Influenza, adjuvanted, inactivated, quadrivalent, injectable, preservative free administered Note: [facility] bi-directional interface ; Source: Other Registry SARS-COV-2 (COVID-19) vaccin e, mRNA, spike protein, LNP, bivalent, preservative free, 50 mcg/0.5 mL or 25 mcg/0.25 mL dose administered Note: [facility] bi- directional interface ; Source: Other Registry Afluria Qd administered Note: II bi-directional interface ; Source: Other Registry SARS-COV-2 (COVID-19) vaccin e, mRNA, spike protein, LNP, preservative free, 100 mcg/0.5mL dose or 50 mcg/0.25mL dose administered Note: [facility] bi -directional interface ; Source: Other Registry Pneumococcal conjugate vacci ne 20-valent (PCV20), polysaccharide [id number] conjugate, adjuvant, preservative free administered Note: [facility] bi-direct ional interface ; Source: Other Registry SARS-COV-2 (COVID-19) vaccin e, mRNA, spike protein, LNP, preservative free, 100 mcg/0.5mL dose or 50 mcg/0.25mL dose administered Note: [facility] bi -directional interface ; Source: Other Registry SARS-COV-2 (COVID-19) vaccin e, mRNA, spike protein, LNP, preservative free, 100 mcg or 50 mcg dose administered Note: [facility] bi-direct ional interface ; Source: Other Registry Influenza, recombinant, quadrivalent, injectable, preservative free administered Note: [facility] bi-direct ional interface ; Source: Other Registry Seasonal, quadrivalent, recombinant, injectable influenza vaccine, preservative free administered Note: [facility] bi -directional interface ; Source: Other Registry SARS-COV-2 (COVID-19) vaccin e, mRNA, spike protein, LNP, preservative free, 100 mcg/0.5mL dose or 50 mcg/0.25mL dose administered Note: [facility] bi -directional interface ; Source: Other Registry SARS-COV-2 (COVID-19) vaccin e, mRNA, spike protein, LNP, preservative free, 100 mcg or 50 mcg dose administered Note: [facility] bi-direct ional interface ; Source: Other Registry SARS-COV-2 (COVID-19) vaccin e, mRNA, spike protein, LNP, preservative free, 100 mcg/0.5mL dose or 50 mcg/0.25mL dose administered Note: [facility] bi -directional interface ; Source: Other Registry SARS-COV-2 (COVID-19) vaccin e, mRNA, spike protein, LNP, preservative free, 100 mcg or 50 mcg dose administered Note: [facility] bi-direct ional interface ; Source: Other Registry SARS-COV-2 (COVID-19) vaccin e, mRNA, spike protein, LNP, preservative free, 100 mcg/0.5mL dose administered Note: [facility] bi-direct ional interface ; Source: Other Registry Afluria Qd administered Note: M IIC bi-directional interface ; Source: Other Registry Afluria Qd administered Note: M IIC bi-directional interface ; Source: Other Registry Afluria Qd administered Note: M IIC bi-directional interface ; Source: Other Registry Fluzone Quad 6mo or older administered Note: [facility] bi-direct ional interface ; Source: Other Registry Afluria Qd administered Note: M IIC bi-directional interface ; Source: Other Registry Afluria Qd administered Note: M IIC bi-directional interface ; Source: Other Registry Fluzone Quad 6mo or older administered Note: [facility] bi-direct ional interface ; Source: Other Registry zoster vaccine recombinant administered N ote: [facility] bi-directional interface ; Source: Other Registry Pneumovax 23 administered Note: [facility] bi-d irectional interface ; Source: Other Registry zoster vaccine recombinant administered N ote: [facility] bi-directional interface ; Source: Other Registry Afluria Qd administered Note: M IIC bi-directional interface ; Source: Other Registry Afluria Qd administered Note: M IIC bi-directional interface ; Source: Other Registry tetanus and diphtheria toxoi ds, adsorbed, preservative free, for adult use (2 Lf of tetanus toxoid and 2 Lf of diphtheria toxoid) administered Note: MII C bi- directional interface ; Source: Other Registry Fluzone Quad 6mo or older administered Note: [facility] bi-direct ional interface ; Source: Other Registry zoster vaccine, live administered Note: M IIC bi-directional interface ; Source: Other Registry Payers Payer name Insurance type Covered democrat ID Authoriza tion(s) Medicare NGS MB [id number] Social History Type Description Quantity Date Captured Comments Alcohol Use Details Unknown Caffeine Use Details Unknown Tobacco Use Status No Information Smoking Status No Information Sex Male Chief Complaint And Reason For Visit No Information Reason For Referral Reason For Referral No Information Plan Of Treatment Date Type Action Status Referral Ordered: H. pylori Breath Test Appointment date/timeframe: 09/08/2024 ordered Referral Ordered: Colonoscopy Appointment date/timeframe: -today ordered Referral Ordered: Celiac: TTG IgA + Total IgA Appointment date/timeframe: 02/23/2020 ordered Referral Ordered: EGD Appointment date/timeframe: -today ordered History Of Present Illness Encounter Date Complaint History Of Prese nt Illness GI Symptoms or Concerns This is a 64-year-old male with a past medical history of type 2 diabetes on Ozempic for the last 3 to 4 years, insulin, BMI of about 25, recent DVT in the last few weeks in the upper extremities currently on Xarelto for the last 1 week, cholecystectomy 07/08/2024, hypertension who presents here for follow-up in the setting of ongoing right lower quadrant pain, colitis seen on CT as well as H. pylori infection. He has been hospitalized 2 separate occasions from a GI standpoint in early June and mid June. In late May he had kidney stones as well.Patient's GI symptoms began in early June 2024. At that point he started having right lower quadrant pain as well as some epigastric pain. EGD was performed in the setting of CT scan showing some potential duodenal inflammation. It showed LA grade B esophagitis, biopsies of the esophagus were unremarkable. He did have some gastritis and biopsies were indicative of H. pylori. Duodenum appeared normal. Ultrasound showed cholelithiasis and was concerned that the gallbladder could be causing part of patient's symptomatology therefore patient underwent cholecystectomy 07/08.Then in middle of June patient was admitted to [facility] where he started having multiple bloody bowel movements a day. There was. Cross-sectional imaging was done x 2 that showed thickening in the lower esophagus as well as colitis in the left colon. No mention of appendicitis either time. Esophagram was also performed that showed mild reflux and few tertiary contractions. Patient's bloody bowel movements stopped with conservative management and patient was not placed on any antibiotics and no stool testing was performed. Patient's hemoglobin from baseline of 16-13.Patient presents today with ongoing right lower quadrant pain that is improved with going on a liquid diet. Otherwise patient's bowel movements are 1 every few days since he is limited his intake. Patient is eating can sometimes make worsening crampy abdominal pain. No nausea or vomiting. Pain in the right lower quadrant is present all the time. Patient denies any dysphagia.Patient is taking PPI therapy and Pepto-Bismol otherwise no other H. pylori antibiotics.Patient has never had a colonoscopy though he has been up-to-date with colon cancer screening with CologuardFrom a social standpoint he denies any smoking recreational drug use or alcohol.No family history of colon cancer or IBD. GI Symptoms or Concerns I had th e pleasure of seeing . Kev Yi, a 61-year-old gentleman, seen in followup for evaluation of abdominal pain.Kev was last seen in clinic by Dr. Carr in October 2020. He has had complaints of upper abdominal pain and diarrhea, much of which was attributed to the GE junction ulcer/esophagitis seen on endoscopy in October 2020 and also has side effects from the diabetic medications.He has a history of postprandial diarrhea with urgency, heaviness in the upper abdomen and discomfort. He was treated ultimately with omeprazole 40 mg twice a day, which he has been on persistently. Ultimately, he was switched to pantoprazole 40 mg twice per day.More recently, over the past month he has noticed fairly significant pain in a band-like nature around his periumbilical/lower abdominal region. This is fairly constant throughout the day, though it can change with intensity. Sometimes eating can exacerbate it and sometimes not. He went to the emergency department [facility] GI Symptoms or Concerns Kev is a 60-year-old gentleman with hypertension, history of peptic ulcer disease, and type 2 diabetes, who underwent a virtual visit with me today for evaluation of recurrent upper abdominal pain. The patient did give consent for virtual visit and was the only one present during the visit. I spent 10 minutes reviewing his medical record and then 13 minutes discussing his symptoms as well as medical management.To review, this is the first time I am meeting the patient, but he did see my partner, KEREN Chacon, on February 18 given upper abdominal pain and diarrhea. At that time, it was recommended that he have an EGD and colonoscopy, but he did not pursue that as he reports that he felt his diarrhea was related to omeprazole therapy, so he stopped taking it shortly after that visit and reports that his diarrhea returned to baseline with his metformin of typically 1 to 2 bowel movements daily with episodes roughly once every 2 weeks of looser stools. He also feels that GI Symptoms or Concerns This is a pleasant 59-year-old male with past medical history significant for hypertension, history of a gastric ulcer, type 2 diabetes, prior left upper extremity DVT (not currently on any anticoagulation), presenting for a virtual visit to be seen in consultation for Dr. Macias for symptoms of upper abdominal pain and diarrhea.The patient was started on metformin approximately 2 years ago, for diabetes management. He reports after starting the medication, his stools were loose, but typically only 1 to 2 bowel movements a day. About a month ago, his bowel habits changed. He suddenly began experiencing anywhere from 3 to 5 postprandial very urgent, watery, loose bowel movements a day. He notes that symptoms can start within 4 minutes or up to 20 minutes after starting to eat. He denies making any new dietary changes. He has not had any changes in his metformin dosing. He has not tried any [id number]-icjevnj medications or identified any alleviating factors to the diarrhea. Functional Status Date Functional Assessmen t No Information Instructions Date Instruction Additional Infor shea -- As we discussed t he next step for your right lower quadrant pain as well as the thickening seen on the CT scan of your colon (colitis) we will do stool test to rule out any infections that could be contributing-- If the infection test is positive we will treat that infection with appropriate antibiotics-- If the stool test is negative then we will proceed with colonoscopy to ensure that that inflammation in your colon is nothing like inflammatory bowel disease such as ulcerative colitis or Crohn's disease or any mass though unlikely in the setting of you having negative Cologuard testing in the past-- In the meantime stay on a full liquid diet until we have results of the GI stool test and I will communicate diet changes thereafter-- Safe to use [id number] lidocaine patch-- Safe to consume 1 pill of jcgl-zqc-oyycqks IBgard, can also buy online-- Have prescribed dicyclomine that you can use up to twice a day as needed for crampy abdominal pain-- Can stop taking the Pepto-Bismol see how symptoms fair-- You have known H. pylori and at this time point would recommend holding off on treatment as we get a better handle on the right lower quadrant pain and we will treat this in the next few months as you continue to improve-- Continue with acid jann pantoprazole-- We will set up follow-up after the colonoscopy if we are doing this test otherwise we will set up follow-up a few weeks after we treat the stool infection if that comes back positive Related to RLQ abdominal pain 1. Colon cleanse.2. He will update Dr. Ambriz and he has my number. If no improvement, then addition of sucralfate to pantoprazole.3. If still no improvement, then an EGD and potentially a CT with contrast.4. Ultimately, if all diagnostics are normal and no improvement with the aforementioned medicine interventions, we could consider medication for functional GI pathology such as nortriptyline.Thank you so much for involving me in the care of Mr. Yi. Related to Periumbilical abdominal pain 1. EGD.2. If EGD unr evealing, proceed with 4-hour gastric emptying study.3. Agree with restart of PPI, but we will switch to pantoprazole 40 mg daily from omeprazole.4. Avoid NSAIDs.5. Return to clinic if needed. Related to Upper abdominal pain I will obtain the gabrielle dobbins's infectious stool studies from his primary clinic and the patient will set up a lab appointment for celiac serology testing. As long as stool tests are negative, we will proceed with upper endoscopy with gastric and duodenal biopsies along with colonoscopy with random colon biopsies and terminal ileum evaluation. I will not make any changes to his current medications and he will continue on omeprazole daily. He will continue to avoid NSAID medications. If workup is negative, we would consider a trial of patient off of metformin at the direction of his primary care provider and/or glucose breath test for small intestinal bacterial overgrowth testing. He will have a followup virtual visit with me upon completion of the above workup in approximately 4 to 6 weeks. Related to Diarrhea, unspecified type Assessments Type Assessment Date No Information Patient Care Teams Name Effective Dates (start - stop) Status Members No Information
--- OUTSIDE RECORDS SUMMARY | 2025-01-03 00:28 | XMS_ITS | Continuity of Care Document ---
Author Organization [facility] Address [address] [address] [place] [address] Phone Care Team Providers Care Metal Machine Setter Name Role Phone Rachid Zazueta MD Unavailable [...] Diagnoses Date Provider Providers Copied on Encounter [facility], [address] [address], [place], [place], [address], [place] tel:[phone] [facility] No Information 5 Min MD Rashid. [address], [id number], [place]. tel:[phone] Offic/outpt E&m Estab Mod-hi 2 [facility], [address] [address], [place], [place], [address], [place] tel:[phone] [facility] GI Symptoms or Concerns (chief complaint) RLQ abdominal painColitisH. pylori infectionGastro esophageal reflux disease with esophagitis without hemorrhage 4 Yokasta Handy. 3001 [facility], [address], [id number], [place]. tel:[phone] Referring Provider: Referral Self, USE FOR SELF REFERRALS. [facility], [address] [address], [place], [place], [address], [place] tel:[phone] [facility] No Information 4 Maxime Allan. 3001 [facility], [address], [id number], [place]. tel:[phone] [facility], [address] [address], [place], [address], [place] tel:[phone] [facility] H. pylori infection 4 Jacob Mason. 3001 [facility], [address], [place], [place], [address], [place]. tel:[phone] [facility], [address] [address], [place], [address], [place] tel:[phone] [facility] No Information 4 Angela Masters. 3001 [facility], [facility] 500, [place], [place], [address], [place]. tel:[phone] Referring Provider: Guerrero Sanchez, [address] [facility] 500, [place] [place], [address] . tel:[phone] Init Hosp-da E&m Mod Severity [facility], [address] [address], [place], [address], [place] tel:[phone] [facility] No Information 4 Tracy Marshall. 3001 [facility], [facility] 500, [place], [place], [address], [place]. tel:[phone] Referring Provider: Guerrero Sanchez, [address] [facility] 500, [place] [place], [address] . tel:[phone] Offic/outpt E&m Estab Mod-hi 2 [facility], [address] [address], [place], [address], [place] tel:[phone] [facility] GI Symptoms or Concerns (chief complaint) Periumbilical abdominal pain 2 Pb Menard. 3001 [facility], [address], [place], [place], [address], [place]. tel:[phone] Referring Provider: Calvin Phelan MD, [address] [facility] [address], [place], [address]. tel:[phone] [facility], [address] [address], [place], [address], [place] tel:[phone] [facility] No Information 2 Markel Chiu. 3001 [facility], [address], [place], [address], [place]. [phone] [facility], [address] [address], [place], [address], [place] tel:[phone] [facility] No Information 1 Markel Chiu. 3001 [facility], [facility] [address], [place], [address], [place]. tel:[phone] [facility], [address] [address], [place], [address], [place] tel:[phone] [facility] Upper abdominal pain, unspecifiedGast roesophageal reflux disease with esophagitis without hemorrhageDisea se of stomach and duodenum, unspecifiedUppe r abdominal pain, unspecifiedDise ase of stomach and duodenum, unspecified 1 Markel Chiu. 3001 [facility], [address], [id number], [place]. tel:[phone] Referring Provider: Referral Self, USE FOR SELF REFERRALS. Established Level 4 [facility], [address] [address], [place], [address], [place] tel:[phone] [facility] GI Symptoms or Concerns (chief complaint) Upper abdominal pain 1 Bruno Jim. 3001 [facility], [facility] [address], [place], [address], [place]. tel:[phone] Referring Provider: Referral Self, USE FOR SELF REFERRALS. [facility], [address] [address], [place], [address], [place] tel:[phone] [facility] No Information 1 Neena Dougherty. 3001 [facility], [address], [address], [place]. tel:[phone] [facility], [address] [address], [place], [id number], [place] tel:[phone] [facility] Diarrhea, unspecified 0 Edstrom GABRIELLE Fenton. [address] [place] [address], [address], [place]. tel:[phone] Referring Provider: Referral Self, USE FOR SELF REFERRALS. Virtual Visit E&M New Low-Mod 20-29 Min [facility], [address] [address], [place], [address], [place] tel:[phone] [facility] GI Symptoms or Concerns (chief complaint) Diarrhea, unspecified typePain of upper abdomen 0 Edstrom GABRIELLE Fenton. [address] [place] [address], [id number], [place]. tel:[phone] Referring Provider: [place], [address] [place], [address]. tel:[phone] [facility], [address] [address], [place], [address], [place] tel:[phone] [facility] No Information 0 Neena Dougherty. [address] [place] [address], [id number], [place]. tel:[phone] Family History Family Member Type Diagnosis Age At Onset Son Problem (finding) Alive and well Daughter Problem (finding) Galactosemia Half brother (M) Problem (finding) Alive and well Half sister (M) Problem (finding) Alive and well Mother Problem (finding) Alive and well Immunizations Vaccine Date Status Comments Influenza, adjuvanted, inactivated, quadrivalent, injectable, preservative free administered Note: [employer] bi-directional interface ; Source: Other Registry SARS-COV-2 [...] Pneumococcal conjugate vacci ne 20-valent (PCV20), polysaccharide [id number] conjugate, adjuvant, preservative free administered Note: MIIC [...] Registry Payers Payer name Insurance type Covered alliance party ID Authoriza tion(s) Medicare NGS MB [id number] Social History Type Description Quantity Date Captured [...] middle of June patient was admitted to [facility] where he started having multiple bloody bowel [...] not. He went to the emergency department [facility] GI Symptoms or Concerns Kev is a [...] metformin dosing. He has not tried any pxdy-hqj-obcxicx medications or identified any alleviating factors to [...] communicate diet changes thereafter-- Safe to use rxun-vtp-kjiotdc lidocaine patch-- Safe to consume 1 pill of nxzh-sag-amottlt IBgard, can also buy online-- Have prescribed [...]
--- OUTSIDE RECORDS SUMMARY | 2025-07-07 23:02 | XMS_ITS | Encounter Summary ---
Author Organization [place] Address [address] [place] [address] Care Team Providers Care Half Section Ironer Name Role Phone Carly Jesus MD Primary Care Provider [phone] Ip, Lucio Prakash MD Unavailable [phone] Zulma Madsen PA-C Unavailable +[phone] Ip, Lucio Prakash MD Unavailable +[phone] Carly Santos MD Unavailable [phone] Henrique Pulido MD Unavailable Neena Levine MD Unavailable [phone] Henrique Pulido MD Unavailable Marisol Hawthorne PA-C Unavailable +[phone] Encounter Details Date Type Department Care Team (Late st Contact Info) Description 08/08/2024 MyC Medical Advice [facility] [address] [place] [address] Jaky Perry Social History Tobacco [...] in an overnight intermediate, or couch-surfing.) Yes 08/01/2024 Are you worried [...] on file 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 [address] [place] [phone] Marisol Hawthorne PA-C [address] [place] [address] [place] [address]17[address] documented as of this encounter Visit Diagnoses Not on filedocumented in this encounter Additional Health Concerns Infection Onset Date Last Indicated Resolved Time Rule Out COVID-19 09/03/2024 09/03/2024 09/03/2024 3:44 PM MIXED SIGNAL DESIGN ENGINEER Rule Out COVID-19 12/29/2024 12/29/2024 12/29/2024 2:49 AM CDT documented as of this encounter Care Teams Half Section Ironer Relationship Specialty Start Date End Date Carly Jesus MD [facility] [address] [place] [address] PCP - General Internal Medicine 06/06/24 Lucio Westfall MD [address] [place] 174995 Cardiovascular Disease 08/16/24 Zulma Madsen PA-C [address] [place] [address] [id number] Assigned Cancer Care Provider 08/21/24 Lucio Westfall MD [address] [place] [address] Assigned Heart and Vascular Provider 08/21/24 Carly Santos MD [address] [facility] [address] [place] [address] Assigned Surgical Provider 08/21/24 Henrique Pulido MD [address] [address] Neurology 09/29/24 Neena Levine MD 909 [place] [address] Physician Neurology 10/11/24 Hnerique Pulido MD [address] [address] Assigned Neuroscience Provider 10/22/24 Marisol Hawthorne PA-C [address] [place] [address] [place] [address] Assigned Sleep Provider 04/21/25 documented as of this encounter
--- OUTSIDE RECORDS SUMMARY | 2025-07-07 23:02 | XMS_ITS | Encounter Summary ---
Author Organization [place] Address [address] [place] [address] Care Team Providers Care Head Turning Machine Operator Name Role Phone Carly Jesus MD Primary Care Provider [phone] Ip, Lucio Prakash MD Unavailable [phone] Zulma Madsen PA-C Unavailable [phone] Ip, Lucio Prakash MD Unavailable +[phone] Carly Santos MD Unavailable [phone] Henrique Pulido MD Unavailable Neena Levine MD Unavailable [phone] Henrique Pulido MD Unavailable Marisol Hawthorne PA-C Unavailable +[phone] Encounter Details Date Type Department Care Team (Late st Contact Info) Description 08/14/2024 MyC Medical Advice [facility] Disorders [address] [place] [address] Serene Lance, RN Social History [...] in an abandoned building, in an overnight chcf, or couch-surfing.) Yes 08/01/2024 Are you worried [...] on file Legal Sex Male 3:12 AM STONE PAVER Gender Identity Not on file Sexual Orientation Not on file documented as of this encounter Plan of Treatment Upcoming Encounters Date Type Department Care Team (Late st Contact Info) Description 08/02/2025 8:00 PM STONE PAVER Therapy Visit [facility] 4982 [facility] [address] [place] [phone] Marisol Hawthorne PA-C 5049 [facility] [address] [place], [place] [address]55[address] 11/14/2025 9:00 AM CDT Office Visit [facility] [address] [place] [phone] Marisol Hawthorne PA-C [address] [place] [address] documented as of this encounter Visit Diagnoses Not on filedocumented in this encounter Additional Health Concerns Infection Onset Date Last Indicated Resolved Time Rule Out COVID-19 09/03/2024 09/03/2024 09/03/2024 3:44 PM STONE PAVER Rule Out COVID-19 12/29/2024 12/29/2024 12/29/2024 2:49 AM CDT documented as of this encounter Care Teams Head Turning Machine Operator Relationship Specialty Start Date End Date Carly Jesus MD [facility] [address] [place] [address] PCP - General Internal Medicine 06/06/24 Lucio Westfall MD [address] [place] 759255 Cardiovascular Disease 08/16/24 Zulma Madsen PA-C [address] [place] [address] 998164 Assigned Cancer Care Provider 08/21/24 Lucio Westfall MD [address] [place] 399005 Assigned Heart and Vascular Provider 08/21/24 Carly Santos MD [address] [facility] [address] [place], [place] 586437 Assigned Surgical Provider 08/21/24 Henrique Pulido MD [address] [address] Neurology 09/29/24 Neena Levine MD 9 [place] [address] Physician Neurology 10/11/24 Henrique Pulido MD [address] [address] Assigned Neuroscience Provider 10/22/24 Marisol Hawthorne PA-C [address] [place] [address] [address] [address] Assigned Sleep Provider 04/21/25 documented as of this encounter
--- OUTSIDE RECORDS SUMMARY | 2025-07-07 23:02 | XMS_ITS | Encounter Summary ---
Author Organization [place] Address [address] [place] [address] Care Team Providers Care Gluing Machine Offbearer Name Role Phone Carly Jesus MD Primary Care Provider [phone] Ip, Lucio Prakash MD Unavailable [phone] Zulma Madsen PA-C Unavailable [phone] Ip, Lucio Prakash MD Unavailable [phone] Carly Santos MD Unavailable [phone] Henrique Pulido MD Unavailable Neena Levine MD Unavailable [phone] Henrique Pulido MD Unavailable Marisol Hawthorne PA-C Unavailable +[phone] Encounter Details Date Type Department Care Team (Late st Contact Info) Description 08/15/2024 MyC Medical Advice [facility] [address] [place] [address] Piper Mercado Social History Tobacco [...] on file Legal Sex Male 3:12 AM AGENCY TRAINER Gender Identity Not on file Sexual Orientation Not on file documented as of this encounter Plan of Treatment Upcoming Encounters Date Type Department Care Team (Late st Contact Info) Description 08/02/2025 8:00 PM AGENCY TRAINER Therapy Visit [facility] 2927 [facility] [address] [place] [phone] Marisol Hawthorne PA-C 4653 [facility] [address] [place] [address] 11/14/2025 9:00 AM CDT Office Visit [facility] [address] [place] [phone] Marisol Hawthorne PA-C [address] [place] [place] [address] documented as of this encounter Visit Diagnoses Not on filedocumented in this encounter Additional Health Concerns Infection Onset Date Last Indicated Resolved Time Rule Out COVID-19 09/03/2024 09/03/2024 09/03/2024 3:44 PM AGENCY TRAINER Rule Out COVID-19 12/29/2024 12/29/2024 12/29/2024 2:49 AM CDT documented as of this encounter Care Teams Gluing Machine Offbearer Relationship Specialty Start Date End Date Carly Jesus MD [facility] [address] [place] [address] PCP - General Internal Medicine 06/06/24 Lucio Westfall MD [address] [place] [address] Cardiovascular Disease 08/16/24 Zulma Madsen PA-C [address] [place] [address] 996464 Assigned Cancer Care Provider 08/21/24 Lucio Westfall MD [address] [place] 676825 Assigned Heart and Vascular Provider 08/21/24 Carly Santos MD [address] [facility] [address] [place] [address] Assigned Surgical Provider 08/21/24 Henrique Pulido MD [address] [address] Neurology 09/29/24 Neena Levine MD 909 [place], [place] 398895 Physician Neurology 10/11/24 Henrique Pulido MD [address] [address] Assigned Neuroscience Provider 10/22/24 Marisol Hawthorne PA-C [address] [place] [address] [place] [address] Assigned Sleep Provider 04/21/25 documented as of this encounter
--- OUTSIDE RECORDS SUMMARY | 2025-07-07 23:02 | XMS_ITS | Encounter Summary ---
Author Organization [place] Address [address] [place] [address] Care Team Providers Care Briefcase Sewer Name Role Phone Carly Jesus MD Primary Care Provider [phone] Ip, Lucio Prakash MD Unavailable [phone] Zulma Madsen PA-C Unavailable [phone] Ip, Lucio Prakash MD Unavailable [phone] Carly Santos MD Unavailable [phone] Henrique Pulido MD Unavailable Neena Levine MD Unavailable [phone] Henrique Pulido MD Unavailable Marisol Hawthorne PA-C Unavailable +[phone] Encounter Details Date Type Department Care Team (Late st Contact Info) Description 07/24/2024 External Order Results [facility] [address] [place] [address] Outside, Provider Social History Tobacco Use Types [...] in an abandoned building, in an overnight snf, or couch-surfing.) Yes 07/06/2024 Are you worried [...] on file Legal Sex Male 3:12 AM APPEALS NURSE Gender Identity Not on file Sexual Orientation Not on file documented as of this encounter Plan of Treatment Upcoming Encounters Date Type Department Care Team (Late st Contact Info) Description 08/02/2025 8:00 PM APPEALS NURSE Therapy Visit [facility] [address] [place] [address] Marisol Hawthorne PA-C [address] [facility] [address] [place] 463225 11/14/2025 9:00 AM CDT Office Visit [address] [address] Marisol Hawthorne PA-C [address] [facility] [address] [address] documented as of this encounter Procedures Procedure Name Priority Date/Time Associated Diagnosis Comments T4 FREE Routine 08/07/2024 1:40 PM APPEALS NURSE T3 TOTAL Routine 08/07/2024 1:40 PM APPEALS NURSE CBC WITH PLATELETS & DIFFERENTIAL Routine 07/24/2024 4:25 PM APPEALS NURSE TSH Routine 07/24/2024 4:25 PM APPEALS NURSE BASIC METABOLIC PANEL Routine 07/24/2024 4:25 PM APPEALS NURSE documented in this encounter Results * T3 total (08/07/2024 1:40 PM APPEALS NURSE) T3 (External) 128 85 - 202 ng/dL NON-INTERFACED (ONBASE SCANS) Blood BLOOD SPECIMEN / Unknown 08/07/2024 1:40 PM APPEALS NURSE Narrative [place] [facility]FT - 08/17/2024 12:39 PM APPEALS NURSE Verified by Jas Bass on 08/17/2024. us Provider Outside LAB - BLOOD ORDERABLES Edited R esult - Final [place] [facility]FT NON-INTERFACED (ONBASE SCANS) * T4 free (08/07/2024 1:40 PM APPEALS NURSE) Thyroxine Free (External) 1.09 0.90 - 1.70 g/dL NON-INTERFACED (ONBASE SCANS) Blood BLOOD SPECIMEN / Unknown 08/07/2024 1:40 PM APPEALS NURSE Narrative [place] [facility]FT - 08/17/2024 12:39 PM APPEALS NURSE Verified by Jas Bass on 08/17/2024. us Provider Outside LAB - BLOOD ORDERABLES Edited R esult - Final [place] PFT NON-INTERFACED (ONBASE SCANS) * (ABNORMAL) CBC with Platelets & Differential (07/24/2024 4:25 PM APPEALS NURSE) WBC Count (External) 6.12 4.0 - 11.0 [...] BLOOD SPECIMEN / Unknown 07/24/2024 4:25 PM APPEALS NURSE Narrative NON-INTERFACED (ONBASE SCANS) - 08/17/2024 12:39 PM APPEALS NURSE Verified by Jas Bass on 08/17/2024. Provider Outside LAB - BLOOD ORDERABLES Edited EmergentDetection Performing Organization Address [facility] de Phone Number NON-INTERFACED (ONBASE SCANS) * (ABNORMAL) TSH (07/24/2024 4:25 PM APPEALS NURSE) Pathologist [facility] TSH (External) 0.530(L) 0.66 - 5.45 uIU/mL NON-INTERFACE D (ONBASE SCANS) Blood BLOOD SPECIMEN / Unknown 07/24/2024 4:25 PM APPEALS NURSE Narrative [place] [facility]FT - 08/17/2024 12:39 PM APPEALS NURSE Verified by Jas Bass on 08/17/2024. Provider Outside LAB - BLOOD ORDERABLES Edited EmergentDetection Performing Organization Address City/[facility] Co de Phone Number [place] PFT NON-INTERFACED (ONBASE SCANS) * (ABNORMAL) Basic metabolic panel (07/24/2024 4:25 PM APPEALS NURSE) Sodium (External) 136.1 133 - 144 mmol/L [...] BLOOD SPECIMEN / Unknown 07/24/2024 4:25 PM APPEALS NURSE Narrative [facility] PFT - 08/17/2024 12:39 PM APPEALS NURSE Verified by Jas Bass on 08/17/2024. us Provider Outside LAB - BLOOD ORDERABLES Edited R esult - Final [place] PFT NON-INTERFACED (ONBASE SCANS) documented in this encounter Visit Diagnoses Not on filedocumented in this encounter Additional Health Concerns Infection Onset Date Last Indicated Resolved Time Rule Out COVID-19 09/03/2024 09/03/2024 09/03/2024 3:44 PM APPEALS NURSE Rule Out COVID-19 12/29/2024 12/29/2024 12/29/2024 2:49 AM CDT documented as of this encounter Care Teams Briefcase Sewer Relationship Specialty Start Date End Date Carly Jesus MD [facility] [address] [place] [address] PCP - General Internal Medicine 06/06/24 Lucio Westfall MD [address] [place] [address] Cardiovascular Disease 08/16/24 Zulma Madsen PA-C [facility] [address] [address] Assigned Cancer Care Provider 08/21/24 Lucio Westfall MD [address] [place] [address] Assigned Heart and Vascular Provider 08/21/24 Carly Santos MD [address] [facility] [address] [place], [place] 9[address]137 Assigned Surgical Provider 08/21/24 Henrique Pulido MD [address] 432135 Neurology 09/29/24 Neena Levine MD 909 [place], [place] 921555 Physician Neurology 10/11/24 Henrique Pulido MD [address] [address] Assigned Neuroscience Provider 10/22/24 Marisol Hawthoren PA-C [address] 061775 Assigned Sleep Provider 04/21/25 documented as of this encounter
--- OUTSIDE RECORDS SUMMARY | 2025-07-07 23:02 | XMS_ITS | Encounter Summary ---
Author Organization [place] Address [address] [place] [address] Care Team Providers Care Hand Buffing Wheel Former Name Role Phone Carly Jesus MD Primary Care Provider [phone] Ip, Lucio Prakash MD Unavailable [phone] Zulma Madsen PA-C Unavailable [phone] Ip, Lucio Prakash MD Unavailable [phone] Carly Santos MD Unavailable [phone] Henrique Pulido MD Unavailable Neena Levine MD Unavailable [phone] Henrique Pulido MD Unavailable Marisol Hawthorne PA-C Unavailable +[phone] Encounter Details Date Type Department Care Team (Late st Contact Info) Description 08/08/2024 MyC Medical Advice [facility] Insurance Verification [facility] [place] Social History [...] in an abandoned building, in an overnight mcc, or couch-surfing.) Yes 08/01/2024 Are you worried [...] on file Legal Sex Male 3:12 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 BOOKING CLERK Gender Identity Not on file Sexual Orientation Not on file documented as of this encounter Plan of Treatment Upcoming Encounters Date Type Department Care Team (Late st Contact Info) Description 08/02/2025 8:00 PM PASSENGER BOOKING CLERK Therapy Visit [facility] [place] 1998163 [facility] [address] [address] Marisol Hawthorne PA-C 2329 [facility] [address], [place] [address] 11/14/2025 9:00 AM CDT Office Visit [facility] [address] [address] Marisol Hawthorne PA-C [address] 894205 documented as of this encounter Visit Diagnoses Not on filedocumented in this encounter Additional Health Concerns Infection Onset Date Last Indicated Resolved Time Rule Out COVID-19 09/03/2024 09/03/2024 09/03/2024 3:44 PM PASSENGER BOOKING CLERK Rule Out COVID-19 12/29/2024 12/29/2024 12/29/2024 2:49 AM CDT documented as of this encounter Care Teams Hand Buffing Wheel Former Relationship Specialty Start Date End Date Carly Jesus MD [facility] [address] [place] [address] PCP - General Internal Medicine 06/06/24 Lucio Westfall MD [address] [place] 936445 Cardiovascular Disease 08/16/24 Zulma Madsen PA-C [address] 359954 Assigned Cancer Care Provider 08/21/24 Lucio Westfall MD [address] [place] 902375 Assigned Heart and Vascular Provider 08/21/24 Carly Santos MD [address] [facility] [address] [place] [address] Assigned Surgical Provider 08/21/24 Henrique Pulido MD [address] [place] 029715 Neurology 09/29/24 Neena Levine MD 9 [place], [place] 036785 Physician Neurology 10/11/24 Henrique Pulido MD [address] 518725 Assigned Neuroscience Provider 10/22/24 Marisol Hawthorne PA-C [address] [place] [address] [place] [address] Assigned Sleep Provider 04/21/25 documented as of this encounter
--- OUTSIDE RECORDS SUMMARY | 2025-07-07 23:03 | XMS_ITS | Clinical Summary ---
Author Organization [facility] Address [address] [place] [address] Care Team Providers Care Motor Analyst Name Role Phone Elsewhere, Pcp Primary Care Provider Unavailabl e Source Comments Patient records contain information from all sites at [facility]. For routine questions regarding patient records, call [phone] during business hours, M-F 8:00 AM - 5:00 PM Central Time. Record requests for emergency care only can be directed to [phone] at any time.[facility] Social History Tobacco Use Types Packs/Day Years Used Date Smoking Tobacco: Never Assessed Sex and Gender Information Value Date Recorded Sex Assigned at Not on file Legal Sex Male 9:50 AM VAMPER Gender Identity Not on file Sexual Orientation [...] M.D. LAB BLOOD ADD-ON Final Res ult [facility] [address] [place] [address], [facility] STMA [facility] [address] [place] [address] from Last 3 Months or Most Recently Relevant to Health Maintenance Insurance MEDICARE Care Teams Motor Analyst Relationship Specialty Start Date End Date Elsewhere, Pcp PCP - General Family Medicine 07/13/20
--- OUTSIDE RECORDS SUMMARY | 2025-07-07 23:03 | XMS_ITS | Encounter Summary ---
Author Organization [place] Address [address] [place] [address] Care Team Providers Care Occupational Health Specialist Name Role Phone Carly Jesus MD Primary Care Provider [phone] Ip, Lucio Prakash MD Unavailable [phone] Zulma Madsen PA-C Unavailable [phone] Ip, Lucio Prakash MD Unavailable [phone] Carly Santos MD Unavailable [phone] Henrique Pulido MD Unavailable Neena Levine MD Unavailable [phone] Henrique Pulido MD Unavailable Marisol Hawthorne PA-C Unavailable +[phone] Encounter Details Date Type Department Care Team (Late st Contact Info) Description 01/09/2025 [place] Medical Advice [address] [place] [address] Lamont Moon Social History Tobacco Use [...] on file 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 [address] [place] [phone] Marisol Hawthorne PA-C [address] [place] [address] documented as of this encounter Visit Diagnoses Not on filedocumented in this encounter Care Teams Occupational Health Specialist Relationship Specialty Start Date End Date Carly Jesus MD [facility] [address] [place] [address] PCP - General Internal Medicine 06/06/24 Lucio Westfall MD [address] [place] [address] Cardiovascular Disease 08/16/24 Zulma Madsen PA-C [address] [place] [address] 816354 Assigned Cancer Care Provider 08/21/24 Lucio Westfall MD [address] [place] [address] Assigned Heart and Vascular Provider 08/21/24 Carly Santos MD [address] [facility] [address] [place] [address] Assigned Surgical Provider 08/21/24 Henrique Pulido MD [address] [place] 936745 Neurology 09/29/24 Neena Levine MD 909 [place] [address] Physician Neurology 10/11/24 Henrique Pulido MD [address] [place] [address] Assigned Neuroscience Provider 10/22/24 Marisol Hawthorne PA-C [address] [place] [address] [place] [address] Assigned Sleep Provider 04/21/25 documented as of this encounter
--- OUTSIDE RECORDS SUMMARY | 2025-07-07 23:03 | XMS_ITS | Encounter Summary ---
Author Organization [facility] Address [address] [place] [address] Care Team Providers Care Health Data Analyst Name Role Phone Carly Jesus MD Primary Care Provider [phone] Ip, Lucio Prakash MD Unavailable [phone] Zulma Madsen PA-C Unavailable [phone] Ip, Lucio Prakash MD Unavailable [phone] Carly Santos MD Unavailable [phone] Henrique Pulido MD Unavailable Neena Levine MD Unavailable [phone] Henrique Pulido MD Unavailable Marisol Hawthorne PA-C Unavailable [phone] Encounter Details Date Type Department Care Team (Late st Contact Info) Description 08/28/2024 MyC Medical Advice [facility] [address] [place] [address] Serene Lance, RN Social History [...] in an abandoned building, in an overnight alf, or couch-surfing.) Yes 08/01/2024 Are you worried [...] on file 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 Sex Male 3:12 AM SOLAR INSTALLATION MANAGER Gender Identity Not on file Sexual Orientation Not on file documented as of this encounter Plan of Treatment Upcoming Encounters Date Type Department Care Team (Late st Contact Info) Description 08/02/2025 8:00 PM SOLAR INSTALLATION MANAGER Therapy Visit [facility] [address] [facility] [address] [place] [phone] Marisol Hawthorne PA-C [address] [facility] [address] [place], [place] 840255 11/14/2025 9:00 AM CDT Office Visit [facility] [address] [place] [phone] Marisol Hawthorne PA-C [address] [facility] [address] [place] [address] documented as of this encounter Visit Diagnoses Not on filedocumented in this encounter Additional Health Concerns Infection Onset Date Last Indicated Resolved Time Rule Out COVID-19 09/03/2024 09/03/2024 09/03/2024 3:44 PM SOLAR INSTALLATION MANAGER Rule Out COVID-19 12/29/2024 12/29/2024 12/29/2024 2:49 AM CDT documented as of this encounter Care Teams Health Data Analyst Relationship Specialty Start Date End Date Carly Jesus MD [facility] [address] [place] [address] PCP - General Internal Medicine 06/06/24 Lucio Westfall MD [address] [place] [id number] Cardiovascular Disease 08/16/24 Zulma Madsen PA-C [address] [place] [address] 746774 Assigned Cancer Care Provider 08/21/24 Lucio Westfall MD [address] [place] 788125 Assigned Heart and Vascular Provider 08/21/24 Carly Santos MD [address] [facility] [address] [place], [place] 94[address] Assigned Surgical Provider 08/21/24 Henrique Pulido MD [address] [place] [address] Neurology 09/29/24 Neena Levine MD 9 [place] [address] Physician Neurology 10/11/24 Henrique Pulido MD [address] [place] [address] Assigned Neuroscience Provider 10/22/24 Marisol Hawthorne PA-C [address] [place] [address] [place] [address] Assigned Sleep Provider 04/21/25 documented as of this encounter
--- OUTSIDE RECORDS SUMMARY | 2025-07-07 23:03 | XMS_ITS | Encounter Summary ---
Author Organization [place] Address [address] [place] [address] Care Team Providers Care Supervisor Farm Equipment Maintenance Name Role Phone Carly Jesus MD Primary Care Provider [phone] Ip, Lucio Prakash MD Unavailable [phone] Zulma Madsen PA-C Unavailable [phone] Ip, Lucio Prakash MD Unavailable [phone] Carly Santos MD Unavailable [phone] Henrique Pulido MD Unavailable Neena Levine MD Unavailable [phone] Henrique Pulido MD Unavailable Marisol Hawthorne PA-C Unavailable [phone] Encounter Details Date Type Department Care Team (Late st Contact Info) Description 10/24/2024 MyC Medical Advice [facility] [address] [facility] [address] [place] [address] Zulma Madsen PA-C [address] [place] [address] Social History Tobacco Use Types Packs/Day [...] in an abandoned building, in an overnight correction, or couch-surfing.) Yes 08/01/2024 Are you worried [...] on file Legal Sex Male 3:12 AM QA TEST ANALYST Gender Identity Not on file Sexual Orientation Not on file documented as of this encounter Plan of Treatment Upcoming Encounters Date Type Department Care Team (Late st Contact Info) Description 08/02/2025 8:00 PM QA TEST ANALYST Therapy Visit [facility] [address] [place] [address] [place] [address] Marisol Hawthorne PA-C [address] [place] [place] [address] 11/14/2025 9:00 AM CDT Office Visit [facility] [address] [place] [phone] Marisol Hawthorne PA-C [address] [place] 168735 documented as of this encounter Visit Diagnoses Not on filedocumented in this encounter Additional Health Concerns Infection Onset Date Last Indicated Resolved Time Rule Out COVID-19 12/29/2024 12/29/2024 12/29/2024 2:49 AM CDT documented as of this encounter Care Teams Supervisor Farm Equipment Maintenance Relationship Specialty Start Date End Date Carly Jesus MD [facility] [address] [address] [place] [address] PCP - General Internal Medicine 06/06/24 Lucio Westfall MD [address] [place] 267745 Cardiovascular Disease 08/16/24 Zulma Madsen PA-C [facility] [place] [address] 050764 Assigned Cancer Care Provider 08/21/24 Lucio Westfall MD [address] [place] 879375 Assigned Heart and Vascular Provider 08/21/24 Carly Santos MD [address] [facility] [address] [place] [address] Assigned Surgical Provider 08/21/24 Henrique Pulido MD [address] [place] [id number] Neurology 09/29/24 Neena Levine MD [address] [place], [place] 714585 Physician Neurology 10/11/24 Henrique Pulido MD [address] [place] [id number] Assigned Neuroscience Provider 10/22/24 Marisol Hawthorne PA-C [address] [place] [address] [place] [id number] Assigned Sleep Provider 04/21/25 documented as of this encounter
--- OUTSIDE RECORDS SUMMARY | 2025-07-07 23:03 | XMS_ITS | Encounter Summary ---
Author Organization [place] Address [address] [place] [address] Care Team Providers Care Sales Professional Name Role Phone Carly Jesus MD Primary Care Provider [phone] Ip, Lucio Prakash MD Unavailable [phone] Zulma Madsen PA-C Unavailable [phone] Ip, Lucio Prakash MD Unavailable [phone] Carly Santos MD Unavailable [phone] Henrqiue Pulido MD Unavailable Neena Levine MD Unavailable [phone] Henrique Pulido MD Unavailable Marisol Hawthorne PA-C Unavailable [phone] Reason for Referral * Diagnostic Procedure Office (Routine) - Authorized Specialty Diagnoses / Procedures Referred By Contac t Referred To Contact Diagnoses Paresthesia of hand, bilateral Procedures EMG Henrique Pulido MD [address] [facility] [place] [address] Phone: tel: fax: Referral ID Status Reason Start Date Expiration Date V isits Requested Visits Authorized [id number] Authorized 10/10/2024 10/10/2025 1 1 RER HIDES AND SKINS Reason for Visit * Reason Onset Date Comments Orders 10/10/2024 EMG Encounter Details Date Type Department Care Team (Late st Contact Info) Description 10/10/2024 Telephone [facility] Neurology [facility] [address] [place] [address], [address] [place] [address] Henrique Pulido MD [address] [address] Orders (EMG) Social History Tobacco Use [...] in an overnight snf, or couch-surfing.) Yes 08/01/2024 Are you worried [...] on file 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 Gender Identity Not on file Sexual Orientation Not on file documented as of this encounter Miscellaneous Notes * Telephone Encounter - Natalie Musa - 10/10/2024 1:06 PM CST [facility] Phone Message May a [...] Travel Screening: Not Applicable Date of Service: RER HIDES AND SKINS documented in this encounter Plan of Treatment Upcoming Encounters Date Type Department Care Team (Late st Contact Info) Description 08/02/2025 8:00 PM COLORER HIDES AND SKINS Therapy Visit [place] [address] [place] [phone] Marisol Hawthorne PA-C [address] [place] [address] [place] [address] 11/14/2025 9:00 AM CDT Office Visit [facility] [address] [place] [phone] Marisol Hawthorne PA-C [address] [facility] [address] [place] [address]85 Scheduled Orders Name Type Priority Associated Diagnoses [...] documented as of this encounter Care Teams Sales Professional Relationship Specialty Start Date End Date Carly Jesus MD [facility] [address] [place] [address] PCP - General Internal Medicine 06/06/24 Lucio Westfall MD [address] [id number] Cardiovascular Disease 08/16/24 Zulma Madsen, PAJusticeC [address] [place] [address]1914 Assigned Cancer Care Provider 08/21/24 Lucio Westfall MD [address] [id number] Assigned Heart and Vascular Provider 08/21/24 Carly Santos MD [address] [facility] [address] [place], [place] 435087 Assigned Surgical Provider 08/21/24 Henrique Pulido MD [address] [place] 408545 Neurology 09/29/24 Neena Lveine MD [address] [place] [address] 417095 Physician Neurology 10/11/24 Henrique Pulido MD [address] [place] [address] Assigned Neuroscience Provider 10/22/24 Marisol Hawthorne PA-C [address] [place] [address] [place] [address] Assigned Sleep Provider 04/21/25 documented as of this encounter
--- OUTSIDE RECORDS SUMMARY | 2025-07-07 23:03 | XMS_ITS | Clinical Summary ---
Author Organization [employer] [facility] [employer] [facility] Address [address] [place] [address] Care Team Providers Care Dobie Man Name Role Phone Carly Jesus MD Primary Care Provider [phone] Allergies Active Allergy Reactions Criticality Noted Date Comments Atorvastatin Myalgia Low 06/08/2018 Onset of myalgia two days after starting medication Oxycodone Nausea Only,Other - Describe In Comment Field Unknown 12/05/2013 I don't care for it Medications FreeStyle Ce 3 Sensor for continuous blood glucose monitor (CGM)Indications: Type 2 diabetes mellitus with hyperglycemia, without long-term current use of insulin (HC) To be used to read blood sugars, follow clinical quality manager directions. Apply every 14 days. 9 Each 3 01/12/20 23 Active ondansetron (ZOFRAN ODT) 4 mg disintegrating tabletIndications :Nausea Place 1 Tablet (4 mg) on the tongue every 8 hours if needed for Nausea/Vomiting. 10 Tablet 05/31/20 23 Active UltiCare Pen Needle 32 gauge x 5/32 (disposable insulin pen needle)Indication s:Type 2 diabetes mellitus with hyperglycemia, without long-term current use of insulin (HC) USE TO INJECT INSULIN ONCE DAILY 100 Each 3 05/10/20 24 Active HYDROcodone-aceta minophen (5-325 mg/tablet)Indicat ions:Ureteral stone Take 1-2 Tablets by mouth every [...] daily before meals and at bedtime. 07/14/20 Active cholecalciferol (VITAMIN D3) 50,000 unit capsule Take 50,000 units by mouth once weekly. wednesday Active semaglutide (OZEMPIC) 1 mg/dose (4 mg/3 mL) subcutaneous pen Inject 1 mg subcutaneous every Wednesday. Active Lantus Solostar U-100 Insulin 100 unit/mL (3 mL) penIndications:Ty pe 2 diabetes mellitus with hyperglycemia, without long-term current use of insulin (HC) Inject 10 units subcutaneous before bedtime. 07/16/20 Active Additional Information Patient taking differently: 11 unitSubcutaneous BEFORE BEDTIME, Reported on 06/20/2025 rivaroxaban (XARELTO) 20 mg tablet Take 20 mg by mouth once daily with evening meal. NOT STARTED Active pantoprazole (PROTONIX) 40 mg delayed-release tabletIndications :Lower GI bleed Take 1 Tablet (40 mg) by mouth once daily before a meal. 30 Tablet 07/22/20 Active Additional Information Patient not taking.Reported on 06/20/2025 hydrOXYzine HCL (ATARAX) 25 mg tabletIndications :Pruritic rash Take 2 Tablets (50 mg) by mouth at bedtime if needed for Itching for up to 7 days. 21 Tablet 11/10/19 25 Active desonide (TRIDESILON) 0.05 % creamIndications: Seborrheic dermatitis Apply thin layer to affected areas on face and neck 2 times a day until resolved, then as needed. 60 g 2 11/11/19 25 Active Additional Information Patient not taking.Reported on 06/20/2025 clobetasol 0.05% TOPICAL (TEMOVATE) 0.05 % external solutionIndicatio ns:Seborrheic dermatitis Apply thin layer to the scalp 2 times a day until resolved, then as needed. Do not use on face/ears/underarms /groin. 50 mL 3 11/11/19 25 Active hydrocortisone valerate 0.2 % creamIndications: Seborrheic dermatitis Apply topically to affected area(s) two times daily. 45 g 3 08/08/20 25 Active aspirin enteric coated 81 mg tablet Take 81 mg by mouth. Active cyanocobalamin (VITAMIN B12) 1,000 mcg tablet take 1 tablet by mouth daily* Active fluorouracil (Efudex) 5 % creamIndications: AK (actinic keratosis) Apply topically to affected area(s) two times daily. for 3-6 weeks. 40 g 06/20/20 25 Active Active Problems Patient Care Coordination No te Formatting of this note migh t be different from the original. Family is what matters most to Kev. He has 3 adult children and two teenage step children and one young grandson Kev would like his care team to know he is a very busy person with work. He is in the [employer] business. What are Kev's challenges, stressors, or [...] Encounters Date Type Department Care Team Description 06/20/2025 10:10 AM CDT Office Visit [facility] [address] [facility] [address] [place] [address] Josee Carcamo MD Derm Problem 06/20/2025 Travel 05/09/2025 Nurse Triage [facility] Centralized Nurse Triage Carly Jesus MD Headache 05/07/2025 Nurse Triage 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 Gender Identity Male 12/18/2021 1:20 PM CDT Sexual Orientation Straight 12/18/2021 1: 20 PM CDT Travel History Travel Start Travel End [place] 06/08/2025 06/11/2025 Obstetrics History Last Filed Vital Signs Vital [...] 165.1 cm (5' 5) 10/02/2024 5:28 PM BASKET MAKER Body Mass Index 23.3 10/02/2024 5:28 PM BASKET MAKER Plan of Treatment Health Maintenance Due Date [...] 01/12/2024 01/11/2023, 11/24/2022, 09/07/2022, Additional history exists Influenza Vaccine (#1) 2025 [...] RECT 170 mg/dL 01/12/2023 5:42 PM CDT [facility] PROVIDER ORDERED STATUS RANDOM 01/12/2023 5:42 PM CDT [facility] Blood BLOOD SPECIMEN / Unknown Venipuncture / Unknown 01/11/2023 2:36 PM CDT 01/11/2023 2:37 PM CDT Narrative [facility] - 01/12/2023 5:42 PM CDT Optimal <100 mg/dl Near Optimal 100-129 mg/dl Borderline High 130-159 mg/dl High 160-189 mg/dl Very High >=190 mg/dl us Tye Jordan MD CHEMISTRY Final Result [facility] [address] [place] [address], [place] * (ABNORMAL) OCCULT BLOOD IFOBT STOOL (12/01/2021 6:23 PM CDT) STOOL BLOOD ,IFOBT Positive(A ) Negative 12/01/2021 6:39 PM CDT [facility] Stool STOOL SPECIMEN / Unknown Non-Blood / Unknown 12/01/2021 6:23 PM CDT 12/01/2021 6:30 PM CDT us Ra Gomez MD LABORATORY Final Re sult [facility] [address] [place] [address] * ANTI HCV [97026.2] (12/05/2013 10:17 AM CDT) ANTI HCV Non-reacti ve [facility] Blood specimen (specimen) BLOOD SPECIMEN / Unknown 12/05/2013 10:17 AM CDT 12/05/2013 10:07 AM CDT us Lourdes Pereyra MD SEND OUTS Final Resul t [facility] [place]NAL ZIP [address] [address] [place] [address] from Last 3 Months or Most Recently Relevant to Health Maintenance Insurance [facility] MEDICARE PART A HB ONLY MEDICARE PART B HB ONLY [facility] MR Advance Directives * Full Code [...] 9:39 AM 09/28/2016 2:39 PM Care Teams Dobie Man Relationship Specialty [place] [address] [place] [address] PCP - General Internal Medicine 03/27/24
--- OUTSIDE RECORDS SUMMARY | 2025-07-07 23:03 | XMS_ITS | Data Portability ---
Author Organization [place] [facility] Address [address] [place] [address] Care Team Providers Care Engineer Technical Staff Name Role Phone CECE GUEVARA Primary Care Provider Assessment Encounter Date Assessment Date Assessment LastModified by Organization Details LastModified Time 09/14/2022 09/14/2022 62 year old male with a history of nephrolithias is. Not available 09/13/2022 20:40:43 Plan of Treatment Reminders Order Date Submit Date Provider Last Modified By Organization Details Last Modified Time Details Appointments None recorded. Lab urinalysis , dipstick 2022 023 [facility], [address], [address], [place], [address], 3 11:54:45 unlisted lab - stone blood 2022 023 [facility], [address], [address], [place], [address], 3 14:13:00 Referral None recorded. Procedures None recorded. Surgeries None recorded. Imaging CT, abdomen + pelvis, w/o contrast - Please call to schedule 2022 023 [facility] [place], [address], [address], [place], [address], 3 13:15:30 Medication Orders None recorded. Patient TargetsNo targets recorded. Patient Instructions Encounter Date Encounter Id Patient Instructions Last Modified By Organization Details Last Modified Time 09/14/2022 [id number] Kidney Stones: He is a repeat stone [...] S+ color -advantus YELLOW yellow Not Available [facility] [address] [place] [address] [address], [place], [address], 09/14/2022 11:54:45 09/14/19 23 09/14/2022 UA DIP CS STATU S+ appearance -advantus CLEAR clear Not Available [facility] [address] [place] [address] 200, [place], [address], 09/14/2022 11:54:45 09/14/19 23 09/14/2022 UA DIP CS STATU S+ glucose -advantus 250 mg/dL negati ve abnormal Not Available [facility] [address] [place] [address] 200, [place], [address], 09/14/2022 11:54:45 09/14/19 23 09/14/2022 UA DIP CS STATU S+ bilirubin -advantus NEGATI VE negati ve Not Available [facility] [address] [place] [address] 200, [place], [address], 09/14/2022 11:54:45 09/14/19 23 09/14/2022 UA DIP CS STATU S+ ketones -advantus NEGATI VE mg/dL negati ve Not Available [facility] [address] [place] [address] 200, [place], [address], 09/14/2022 11:54:45 09/14/19 23 09/14/2022 UA DIP CS STATU S+ sp. gravity -advantus 1.025 1.010- 1.025 Not Available [facility] [address] [facility] [address], [place], [address], 09/14/2022 11:54:45 09/14/19 23 09/14/2022 UA DIP CS STATU S+ pH -advantus 5.5 5.0-8. 0 Not Available [facility] [address] [facility], [place], [address], 09/14/2022 11:54:45 09/14/19 23 09/14/2022 UA DIP CS STATU S+ protein -advantus NEGATI VE mg/dL negati ve Not Available [facility] [address] [place] [address] 200, [place], [address], 09/14/2022 11:54:45 09/14/19 23 09/14/2022 UA DIP CS STATU S+ urobilinogen -advantus 0.2 0.2 E.U./d L Not Available [facility] [address] [facility], [place], [address], 09/14/2022 11:54:45 09/14/19 23 09/14/2022 UA DIP CS STATU S+ nitrites -advantus NEGATI VE negati ve Not Available [facility] [address] [facility], [place], [address], 09/14/2022 11:54:45 09/14/19 23 09/14/2022 UA DIP CS STATU S+ blood -advantus NEGATI VE negati ve Not Available [facility] [address] [facility], [place], [address], 09/14/2022 11:54:45 09/14/19 23 09/14/2022 UA DIP CS STATU S+ leukocytes -advantus NEGATI VE negati ve Not Available [facility] [address], [place], [address], 09/14/2022 11:54:45 09/14/19 23 09/14/2022 UA DIP CS STATU S+ performed by BRAYAN Gifford Not Available [facility] [address], [place], [address], 09/14/2022 11:54:45 09/14/1909/14/2022 UA DIP CS STATU [...] for provi rogerio revie w. Not Available [facility] [address], [place], [address], 09/14/2022 11:54:45 0109/14/2022 STONE BLOOD Na 140.0 mmol/ L 135.0- 145.0 Leidy osei n facto rohan salazar 2015. You may notic e a 1-2 mmol/ L incre ase in patie nt Na resul t. Not Available [facility] [address] [facility] [address], [place], [address], 09/14/2022 14:13:00 09/14/19 23 09/14/2022 STONE BLOOD potassium 4.2 mmol/ L 3.6-5. 0 Not Available [facility] [address] [facility] [address], [place], [address], 09/14/2022 14:13:00 09/14/1909/14/2022 STONE BLOOD chloride 106.0 mmol/ L 101.0- 111.0 Not Available [facility] [address] [facility] [address], [place], [address], 09/14/2022 14:13:00 09/14/1909/14/2022 STONE BLOOD CO2 28.0 mmol/ L 21.0-3 1.0 Not Available [facility] [address] [facility], [place], [address], 09/14/2022 14:13:00 09/14/19 23 09/14/2022 STONE BLOOD aniongap 6.00 0.00-1 6.00 Not Available [facility] [address] [facility] [address], [place], [address], 09/14/2022 14:13:00 09/14/19 23 09/14/2022 STONE BLOOD glu 168.40 mg/dL 70.00- 105.00 high Not Available [facility] [address] [facility] [address], [place], [address], 09/14/2022 14:13:00 09/14/19 23 09/14/2022 STONE BLOOD Ca 8.9 mg/dL 8.4-10 .2 Not Available [facility] [address] [facility], [place], [address], 09/14/2022 14:13:00 09/14/19 23 09/14/2022 STONE BLOOD mg 1.8 mg/dL 1.7-2. 8 Not Available [facility] [address], [place], [address], 09/14/2022 14:13:00 09/14/19 23 09/14/2022 STONE BLOOD phosphorus 2.1 mg/dL 2.5-4. 6 low Not Available [facility] [address] [facility], [place], [address], 09/14/2022 14:13:00 09/14/19 23 09/14/2022 STONE BLOOD uric acid 4.1 mg/dL 2.6-7. 2 Not Available [facility] [address], [place], [address], 09/14/2022 14:13:00 09/14/19 23 09/14/2022 STONE BLOOD BUN 17.0 mg/dL 7.0-18 .0 Not Available [facility] [address], [place], [address], 09/14/2022 14:13:00 09/14/19 23 09/14/2022 STONE BLOOD BUN/creat 17.9 ratio 9.0-20 .0 Not Available [facility] [address], [place], [address], 09/14/2022 14:13:00 09/14/19 23 09/14/2022 STONE BLOOD creatinine 1.0 mg/dL 0.6-1. 3 Not Available [facility] [address] [facility], [place], [address], 09/14/2022 14:13:00 09/14/19 23 09/14/2022 STONE BLOOD [...] for provi rogerio revie w. Not Available [facility] [address] [facility] [address], [place], [address], 09/14/2022 14:13:00 09/11/19 23 09/01/2022 XR, abdom en, 1 view No observ ation record ed. Not Available 2022 15:35:10 09/16/19 23 09/16/2022 CT, abdom en + pelvi s, w/o contr ast No observ ation record ed. [facility] [address], [place], [address], 09/16/2022 17:51:08 Result Notes None recorded. Problems Name Problem SNOMED Code Status Onset Date Resolution Date Notes Provider Name and Address Organization Details Recorded Time Kidney stone 93537167 Active 2022 Prasanth regan [facility] 3 10:43:18 Hypertensive disorder 35168139 Active 2022 Prasanth regan [facility] 3 10:44:40 Type 2 diabetes mellitus 50930301 Active 2022 Prasanth Meath shereen [facility] 3 10:44:48 Gastroesophage al reflux disease 281860596 Active 2022 Prasanthhailey regan [facility] 3 10:44:56 Anxiety 64598265 Active 2022 Prasanthhailey regan [facility] 10:45:06 Problem Notes None recorded. Procedures Surgical History Date Name Laterality Status Provider Name and Address Organization Details Recorded Time 3 Blood Draw/PAPER BAG INSPECTOR/PSA RESULTS completed Ania Richmond [facility] 09/14/2022 11:43:30 2 Colonoscopy completed Prasanth Eduardo [facility] 08/02/2023 10:44:08 Imaging Results None [...] Updated DateTime 09/14/2022 162.56 cm 25.4 kg/m2 86101.67 g [facility] 09/14/2022 11:31:36 Social History Question Answer Notes LastModified by Organizat ion Details LastModified Time Tobacco Smoking Status Never Smoker [facility]ly [facility], [facility] 09/14/2022 11:33:46 What Is Your [...] quadrivalent, PF 1 completed Prasanth Meath null, [facility] 05/10/2023 11:36:37 zoster recombinant 8 completed Prasanth Meath null, [facility] 05/10/2023 11:36:37 zoster recombinant 8 completed Prasanth Meath null, [facility] 05/10/2023 11:36:37 COVID-19, mRNA, LNP-S, PF, 100 mcg/0.5mL dose or 50 mcg/0.25mL dose 1 completed Prasanth Meath null, [facility] 05/10/2023 11:36:37 COVID-19, mRNA, LNP-S, PF, 100 mcg/0.5mL dose or 50 mcg/0.25mL dose 1 completed Prasanth Meath null, [facility] 05/10/2023 11:36:37 COVID-19, mRNA, LNP-S, PF, 100 mcg/0.5mL dose or 50 mcg/0.25mL dose 2 completed Prasanth Meath null, [facility] 05/10/2023 11:36:37 COVID-19, mRNA, LNP-S, PF, 100 mcg/0.5mL dose or 50 mcg/0.25mL dose 1 completed Prasanth Meath null, [facility] 05/10/2023 11:36:37 Pneumococcal conjugate PCV20, polysaccharide [id number] conjugate, adjuvant, PF 2 completed Prasanth Meath null, [facility] 05/10/2023 11:36:37 COVID-19, mRNA, LNP-S, bivalent, PF, 50 mcg/0.5 mL or 25mcg/0.25 mL dose 2 [facility] 11:36:37 pneumococcal polysaccharide PPV23 8 completed Prasanth Meath null, [facility] 05/10/2023 11:36:37 zoster live 6 completed Prasanth Meath null, [facility] 05/10/2023 11:36:37 Td (adult), 2 Lf tetanus toxoid, preservative free, adsorbed 7 completed Prasanth Meath null, [facility] 05/10/2023 11:36:37 Influenza, split virus, quadrivalent, PF 0 completed Prasanth Meath null, [facility] 05/10/2023 11:36:37 Influenza, split virus, quadrivalent, PF 8 completed Prasanth Meath null, [facility] 05/10/2023 11:36:37 Influenza, split virus, quadrivalent, PF 9 completed Prasanth Meath null, [facility] 05/10/2023 11:36:37 Influenza, split virus, quadrivalent, PF 2 completed Prasanth Meath null, [facility] 05/10/2023 11:36:37 Influenza, split virus, quadrivalent, PF 7 completed Prasanth Meath null, [facility] 05/10/2023 11:36:37 Past Encounters Encounter ID Performer Location Encounter Start Date Encounter Closed Date Diagnosis/Indication Diagnosis SNOMED-CT Code Diagnosis ICD10 Code Diagnosis IMO Codes Diagnosis Note [id number] Hua Decker MD [facility] [address] [phone] 09/14/2022 11:26:00 09/14/2022 11:41:49 Kidney stone 11307621 N20.0 Health Concerns Section Related Observation LastModified by Organization Detai ls LastModified Time None Recorded Concern Status LastModified by Organization Details LastModified Time None Recorded Advance Directives Directive None Recorded Payers Insurance Date Sequence Insurance Name Policy Number Policy Hager Covered Member ID Hagre Member ID Guarantor Name 09/14/2022 1 LISA (MEDICAID REPLACEMENT - HMO) [facility] [id number] Kev Yi Notes Date Note Type [...] but was otherwise unremarkable. KAVITHA [facility] - [facility] 09/14/2022 11:43:33
--- OUTSIDE RECORDS SUMMARY | 2025-07-07 23:03 | XMS_ITS | Clinical Summary ---
Author Organization [facility] Address [address] [place] [address] Care Team Providers Care Vending Machine Refiller Name Role Phone Carly Jesus MD Primary Care Provider [phone] Ip, Lucio Prakash MD Unavailable [phone] Zulma Madsen PA-C Unavailable [phone] Ip, Lucio Prakash MD Unavailable [phone] Carly Santos MD Unavailable [phone] Henrique Pulido MD Unavailable Neena Levine MD Unavailable [phone] Henrique Pulido MD Unavailable Marisol Hawthorne PA-C Unavailable [phone] Allergies Active Allergy Reactions Criticality Noted Date [...] Visit [facility] Sleep [address] [address] Carly Clark PA-C Baumann, Amber Alexandra, PA-C Snoring (Primary Dx); Witnessed apneic spells; Acute ischemic stroke (H); Primary hypertension; Anxiety 04/13/2025 Travel 04/12/2025 Travel from Last 3 Months Immunizations Immunization Administration [...] Answer Date Recorded Do you have housing? 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 [address] [place] [phone] Marisol Hawthorne PA-C [address] [employer] [place] [address] 11/14/2025 9:00 AM CDT Office Visit [facility] [address] [place] [phone] Marisol Hawthorne PA-C [address] [place] [id number] Health Maintenance Due Date Last Done Comments [...] exists LIPID 08/01/2025 08/01/2024 BMP 03/03/2026 03/03/2025, 050 08/2024, 09/03/2024, Additional history exists DTAP/TDAP/TD VACCINE (3 - Td or Tdap) 07/16/2027 07/16/2017, 09/18/2005 COLONOSCOPY 12/02/2031 12/01/2021 COLORECTAL CANCER SCREENING 12/02/2031 HEPATITIS C SCREENING Completed 12/05/2013 ZOSTER VACCINE Completed 05/29/2018, 03/2018, 03/23/2016 PNEUMOCOCCAL VACCINE 50+ YEARS Completed [...] LIPID PROFILE STAT Add-on 08/01/2024 10:00 AM PROCESS CONTROLS TECHNICIAN OCCULT BLOOD STOOL STAT 08/10/2018 8: 05 PM PROCESS CONTROLS TECHNICIAN from Last 3 Months or Most Recently Relevant to Health Maintenance Results * (ABNORMAL) Hemoglobin A1c (05/01/2025 9:20 AM CDT) [facility] Estimated Average Glucose 143(H) <117 mg/dL 05/01/2025 7:31 PM CDT [facility] Hemoglobin A1C 6.6(H) <5.7 % 05/01/2025 7:31 PM CDT LABORATORY Comment: Normal <5.7% Prediabetes 5.7-6.4% Diabetes 6.5% or higher Note: Adopted from ADA consensus guidelines. Blood TOPOGRAPHY UNKNOWN / Unknown Client Draw / Unknown 05/01/2025 9:20 AM CDT 05/01/2025 5:49 PM CDT Carly Jesus MD LAB - BLOOD ORDERABLES Final Re sult LABORATORY [facility] [address] Lab (1st floor, no room number) [place] [address] * (ABNORMAL) Basic metabolic panel (BMP) (03/03/2025 [...] - 15 mmol/L 03/03/2025 9:33 PM CDT LABORATORY Urea Nitrogen 15.3 8.0 - 23.0 mg/dL 03/03/2025 9:33 PM CDT LABORATORY Creatinine 0.89 0.67 - 1.17 mg/dL 03/03/2025 9:33 PM CDT LABORATORY GFR Estimate >90 >60 mL/min/1.7 3m2 03/03/2025 9:33 PM CDT LABORATORY Comment:eGFR calculated us2020 CKD-EPI equation. Calcium 9.0 8.8 - 10.4 mg/dL 03/03/2025 9:33 PM CDT LABORATORY Glucose 154(H) 70 - 99 mg/dL 03/03/2025 9:33 PM CDT LABORATORY Blood BLOOD SPECIMEN / Unknown Venipuncture / Unknown 03/03/2025 9:06 PM CDT 03/03/2025 9:10 PM CDT us Gill Canales MD LAB - BLOOD ORDE MELVIN Final Result [facility] [address] Lab (1st floor, no room number) [place] [address], [facility] * (ABNORMAL) Lipid panel reflex to direct LDL: Non-fasting (08/01/2024 10:00 AM PROCESS CONTROLS TECHNICIAN) Cholesterol 211(H) <200 mg/dL 08/01/2024 11:28 PM PROCESS CONTROLS TECHNICIAN [facility] Triglycerides 204(H) <150 mg/dL 08/01/2024 11:28 PM PROCESS CONTROLS TECHNICIAN [facility] Direct Measure HDL 33(L) >=40 mg/dL 08/01/2024 11:28 PM PROCESS CONTROLS TECHNICIAN [facility] LDL Cholesterol Calculated 137(H) <100 mg/dL 08/01/2024 11:28 PM PROCESS CONTROLS TECHNICIAN [facility] Non HDL Cholesterol 178(H) <130 mg/dL 08/01/2024 11:28 PM PROCESS CONTROLS TECHNICIAN [facility] Blood BLOOD SPECIMEN / Unknown Venipuncture / Unknown 08/01/2024 10:00 AM PROCESS CONTROLS TECHNICIAN 08/01/2024 10:05 AM PROCESS CONTROLS TECHNICIAN Narrative [facility] - 08/01/2024 11:28 PM PROCESS CONTROLS TECHNICIAN Cholesterol Desirable: < 200 mg/dL Borderline High: [...] MD LAB - BLOOD ORDERABLES Final Result [facility] [place] [facility] [address] [facility] [address], [address] [place] [address], [facility] * Stool: occult blood (08/10/2018 8:05 PM PROCESS CONTROLS TECHNICIAN) Occult Blood Negative NEG^Negati ve 08/10/2018 8:10 PM PROCESS CONTROLS TECHNICIAN [facility] Stool specimen (specimen) 08/10/2018 8:05 PM PROCESS CONTROLS TECHNICIAN 08/10/2018 8:08 PM PROCESS CONTROLS TECHNICIAN us Silvia Powell MD LAB - STOOLS ORDERABLES Edited Result - Final [facility] [address] [place] [address], [facility] [phone] from Last 3 Months or Most Recently Relevant to Health Maintenance Insurance [employer]PORAR[employer] AW[employer] [place], [place] [employer] [address] [employer] MEDICARE ADVANTAGE [facility] FAMILY Advance Directives For more information, please contact: [phone] * Full Code (Latest Code Status on File) Date Activated Date Inactivated Comments 12/29/2024 5:35 AM 12/29/2024 3:10 PM All basic and advanced life-sustaining interventions are performed as appropriate Question Answer Comments Code status determined by: Discussion with guy nt/ legal decision maker * Full Code [...] Comments Code status determined by: Discussion with guy nt/ legal decision maker Care Teams Vending Machine Refiller Relationship Specialty Start Date End Date Carly Jesus MD [facility] [address] [place] [address] PCP - General Internal Medicine 06/06/24 Lucio Westfall MD [address] [place] [address] Cardiovascular Disease 08/16/24 Zulma Madsen PA-C [facility] [address] [address] Assigned Cancer Care Provider 08/21/24 Lucio Westfall MD [address] [place] [id number] Assigned Heart and Vascular Provider 08/21/24 Carly Santos MD [address] [facility] [address] [place], [place] [address] Assigned Surgical Provider 08/21/24 Henrique Pulido MD [address] [place] [address] Neurology 09/29/24 Neena Levine MD [address] [place], [place] [address] Physician Neurology 10/11/24 Henrique Pulido MD [address] [place] [address] Assigned Neuroscience Provider 10/22/24 Marisol Hawthorne PA-C [address] [place] [address] Assigned Sleep Provider 04/21/25
--- OUTSIDE RECORDS SUMMARY | 2025-07-07 23:03 | XMS_ITS | Clinical Summary ---
Author Organization [facility] Address [address] [place] [address] Care Team Providers Care Pot Lining Supervisor Name Role Phone Needs Pcp, Assignment Primary Care Provider [phone] Source Comments You are receiving this document as you are listed as the primary care provider,follow-up provider, or the patient has been referred to you for consultation.This is in compliance with the Medicare and[facility] EHR Incentive Program,which states Providers who transition their patient to another setting of careor provider of care or refers their patient to another provider of care shouldprovide summary care record for each transition of care or referral. [facility] Allergies No known active allergies Medications atenolol (TENORMIN) 25 MG tablet Take 25 mg by mouth daily. 04/27/2020 Active busPIRone (BUSPAR) 10 MG tablet Take 10 mg by mouth two times a day. 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
[2025-07-07 23:12] VITALS: BP 154/88; PULSE 97; RESP 16; TEMP 36.5; O2SAT 96; BMI 22.8
--- NOTE | 2025-07-07 23:29 | CRLHL7_ITS ---
For Patients: As a result of the Century Cures Act, medical imaging exams and procedure reports are released immediately into your electronic medical record. You may view this report before your referring provider. If you have questions, please contact your health care provider. INDICATION: Flank pain, history of stones. TECHNIQUE: CT abdomen and pelvis without contrast. COMPARISON: None. FINDINGS: Lower chest: Unremarkable. Liver: Normal in size and attenuation. No suspicious masses. Gallbladder and bile ducts: Status post cholecystectomy. No abnormal biliary ductal dilatation. Pancreas: Unremarkable. No mass or inflammation. Spleen: Normal in size. No masses. Adrenal glands: Normal in size. No nodules. Kidneys: Multiple tiny bilateral nonobstructing stones. No hydronephrosis or suspicious mass. GI tract: Unremarkable. Normal in caliber. No sign of mass or inflammation. Normal appendix. Vasculature: Abdominal aorta is normal in caliber. Lymph nodes: No lymphadenopathy. Peritoneum/Abdominal Wall: Unremarkable. No free air or significant free fluid. Pelvis: Unremarkable. No pelvic masses. Bones: Unremarkable for age. IMPRESSION: Multiple tiny bilateral nonobstructing nephroliths. No evidence for obstructive uropathy. Please note that all CT scans at this facility use dose modulation, iterative reconstruction, and/or weight-based dosing when appropriate to reduce radiation dose to as low as reasonably achievable. Dictated by Rachid Clemons MD @ 07/08/2025 12:00:16 AM (Electronically Signed)
--- NOTE | 2025-07-07 23:31 | ED_ITS ---
HPI - General Adult General Chief complaint: Flank Pain Stated complaint: left arm blood clot, kidney stone Time Seen by Provider: 07/07/25 23:20 Source: patient Mode of arrival: ambulatory Limitations: no limitations History of Present Illness HPI narrative: 65-year-old male with a notable history of stroke, multiple prior blood clots, kidney stones and diabetes presents to the ED with intermittent flank pain since Wednesday, now 5 days later. History multiple prior stones, has required lithotripsy and stent placement per his descriptions in the past. Last only believes is 5-6 months ago. Once to get this checked out while he is here with an other complaints specifically. Patient reports that he has had swelling since this morning, now 11 at night in the left upper extremity with tenderness in the left elbow. No specific injury or trauma. Feels similar to when he has had venous clots in the past. 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 It sounds as though he has seen hematology and has had a coagulopathy workup. Was treated with Coumadin after DVT, sound like he has only been on low-dose aspirin since October. No shortness of breath or chest pain. No fever or major illness. Had some dry heaves with the possible kidney stone on Wednesday but none in the last few days. His main concern is for a blood clot. Past medical history notable for diabetes, stroke and prior blood clots. Home meds are atorvastatin Lantus, Ozempic and low-dose aspirin. ROS notable for the flank and arm symptoms as above, otherwise denies times 12 systems Related Data Home Medications ?Medication ?Instructions ?Recorded ?Confirmed aspirin 81 mg chewable tablet 81 mg PO DAILY 06/04/25 06/04/25 (Roque Chewable Low Dose Aspirin) atorvastatin 20 mg tablet 20 mg PO QPM 06/04/25 cyanocobalamin (vitamin B-12) 1,000 mcg PO DAILY 06/0406/04/25 1,000 mcg tablet insulin glargine 100 unit/mL 10 unit subcut QPM 06/04/25 subcutaneous solution (Lantus U-100 Insulin) semaglutide 2 mg/dose (8 mg/3 mL) mg subcut 06/04/25 subcutaneous pen injector (Ozempic) Allergies Allergy/AdvReac Type Severity Reaction Status Date / Time oxycodone AdvReac Nausea Verified 06/04/25 19:23 [facility] Social History Smoking Status: Never smoker Do you use any of these nicotine containing products: None Second hand tobacco smoke exposure: No How often do you have a drink containing alcohol: never How often do you have six or more drinks on one occasion: Never AUDIT-C Alcohol total score: 0 Non-prescribed substance use: denies use service: No Exam Const: Vital Signs, click to edit/add: Vital Signs - 24 hr 07/07/25 23:12 Temperature 97.7 F Pulse Rate [Pulse Oximeter] 97 Respiratory Rate 16 Blood Pressure [Ri ght Upper Arm] 154/88 H Pulse Oximetry 96 Oxygen Delivery Me thod Room Air Documenting provider has reviewed patient's vital signs: yes Common normals: no apparent distress General appearance: cooperative and well kempt HENMT: Common normals: normocephalic Head and scalp: normocephalic Face and sinus: normal facial exam Eye: General eye: normal appearance of both eyes Neck & C-Spine: General: normal visual inspection Resp: Common normals: normal respiratory effort, no use of accessory muscles and clear to auscultation bilaterally Effort & inspection: able to speak in complete sentences Auscultation: clear to auscultation bilaterally Cardio: Common normals: regular rate, regular rhythm, S1 normal heart sound, S2 normal heart sound and no murmurs Rate: regular rate Rhythm: regular rhythm Heart sounds: S1 normal and S2 normal Extremity: Other: Right upper extremity appears grossly normal. The left upper extremity does not appear to have any visible swelling. The antecubital fossa, wrist, shoulder, forearm and upper arm appear grossly normal. There are no effusions. He has some mild tenderness to palpation of the biceps tendon but no pain with supination or pronation. No palpable cords or obvious visible clot. Normal use of the hand, no obvious swelling. Psych: Appearance: well kempt Attitude: engaged Activity/motor behavior: appropriate eye contact Attention/concentration: attention grossly intact Memory/cognition: memory grossly intact Insight: insight good Judgement: judgment good Skin: Common normals: no rashes or lesions noted General skin exam: no rashes or lesions noted Course Course ED Course: 65-year-old male with history of prior superficial and deep venous thrombus presenting with concern of tenderness in the forearm and antecubital fossa that he is worried could be a venous clot. Ultrasound recommended. I do not see any obvious signs of dangerous sequela or ischemia. Await ultrasound results. I did let him know that at this time of night, I do need to wake the tech up and call her in from home, it will take a couple of hours to get the results. He is concerned about a possible kidney stone. With his history, this is highly likely. CT ordered. Patient was unable to provide urinalysis, still awaiting those results. Will obtain basic metabolic panel, CBC and inflammatory markers to ensure there are no signs of secondary complications. Weight all findings. Reevaluation(s) Reevaluation #1: Update: Patient informed of all normal results. There are no signs of venous clot in the arm, CT of the abdomen does show stones but all up in the kidneys, nothing causing an obstruction or down in the ureters that would cause persistent symptoms. Laboratory studies are reassuring as well. At this time, I would like for him to continue his aspirin, continue all other current management plans. We reviewed the indications that would warrant ED re- evaluation. I actually think that the pain in his arm is from biceps tendinitis. Discussed. It does not seem like he has got any a particularly exacerbating activities that he is doing. Written instructions provided, alarm symptoms reviewed. He has no further questions. Vital Signs Vital signs: Initial Vital Signs Temperature 97.7 F 07/07/25 23:12 Temperature Source Temporal Artery Scan 07/07/25 23:12 Pulse Rate 97 07/07/25 23:12 Respiratory Rate 16 07/07/25 23:12 Blood Pressure 154/88 H 07/07/25 23:12 Blood Pressure Mean 110 H 07/07/25 23:12 Blood Pressure Position Semi-Fowlers 07/07/25 23:12 Pulse Oximetry 96 07/07/25 23:12 Oxygen Delivery Method Room Air 07/07/25 23:12 Vital Signs Temperature 97.7 F 07/07/25 23:12 Pulse Rate 97 07/07/25 23:12 Respiratory Rate 16 07/07/25 23:12 Blood Pressure 154/88 H 07/07/25 23:12 Pulse Oximetry 96 07/07/25 23:12 Oxygen Delivery Method Room Air 07/07/25 23:12 Temperature 97.7 F 07/07/25 23:12 Pulse Rate 97 07/07/25 23:12 Respiratory Rate 16 07/07/25 23:12 Blood Pressure 154/88 H 07/07/25 23:12 Pulse Oximetry 96 07/07/25 23:12 Oxygen Delivery Method Room Air 07/07/25 23:12 Medical Decision Making Lab Data Lab results reviewed: Yes I reviewed the patient's lab results Lab results narrative: Reassuring. No signs of infection, inflammation, abnormal renal function or electrolyte abnormality. Labs: Lab Results 07/07/25 07/08/25 Range/Units 23:24 00:40 WBC 7.98 (4.50-11.00) K/uL RBC 4.57 (4.30-5.90) m/uL Hgb 15.0 (13.5-17.5) gm/dL Hct 44.5 (37.0-53.0) % MCV 97 (80-100) fL MCH 33 (26-34) pg MCHC 34 (32-36) gm/dL RDW Coeff of Elia 12.1 (11.5-15.5) % Plt Count 218 (140-440) K/uL Neut % (Auto) 58.5 (42.0-72.0) % Lymph % (Auto) 28.1 (20-44) % [place] % (Auto) 10.9 (0.0-11.0) % Eos % (Auto) 1.5 (0.0-7.0) % Baso % (Auto) 0.1 (0.0-3.0) % Neut # (Auto) 4.67 (1.7-7.0) K/uL Lymph # (Auto) 2.24 (0.90-2.90) K/uL [place] # (Auto) 0.90 (0.00-0.90) K/UL Eos # (Auto) 0.12 (0.00-0.50) K/uL Baso # (Auto) 0.01 (0.00-0.30) K/uL Abs Immat Gran (auto) 0.07 (0.00-0.30) K/uL Imm/Tot Granulo (auto) 0.9 % Sodium 139 (135-149) mmol/L Potassium 3.5 L (3.6-5.1) mmol/L Chloride 103 (96-114) mmol/L Carbon Dioxide 24 (20-32) mmol/L Anion Gap 12 (7-15) mEq/L BUN 22 (7-30) mg/dL Creatinine 0.9 (0.5-1.5) mg/dL Estimated Creat Clear 62.35 Estimated GFR 94 ml/min Glucose 139 H (60-115) mg/dL Calcium 9.1 (8.4-10.6) mg/dL Total Bilirubin 0.9 (0.1-1.5) mg/dL AST 27 (12-35) U/L ALT 26 (4-50) U/L Alkaline Phosphatase 72 (40-150) U/L C-Reactive Protein < 0.5 L (0.5-1.0) mg/dL Total Protein 7.8 (6.0-8.3) g/dL Albumin 4.4 (3.3-5.0) g/dL Urine Color Yellow (Yellow) Urine Appearance Clear (Clear) Urine pH 6.0 (5.0-8.5) Ur Specific [place] >= 1.030 (1.000-1.030) Urine Protein Negative (Negative) Urine Glucose (UA) 1+ A (Negative) Urine Ketones Negative (Negative) Urine Blood Negative (Negative) Urine Nitrite Negative (Negative) Urine Bilirubin Negative (Negative) Urine Urobilinogen 1.0 (0.2-1.0) Ur Leukocyte Esterase Negative (Negative) Urine RBC 0-2 (0-2) Urine WBC 2-5 (0-5) Ur Squamous Epith Cells None (None-Few) Urine Bacteria None (None) Imaging Data CT scan - abdomen: Attestation: I have reviewed the pertinent imaging results. My impression: Lots of stones up in the kidney but nothing in the ureters or signs of obstruction. Radiologist's impression: IMPRESSION: Multiple tiny bilateral nonobstructing nephroliths. No evidence for obstructive uropathy. Please note that all CT scans at this facility use dose modulation, iterative reconstruction, and/or weight-based dosing when appropriate to reduce radiation dose to as low as reasonably achievable. Dictated by Rachid Clemons MD @ 07/08/2025 12:00:16 AM Left upper extremity venous Doppler ultrasound: Attestation: I have reviewed the pertinent imaging results. Radiologist's impression: FINDINGS: The left internal jugular, subclavian, and axillary veins are patent with normal waveforms. The brachial, basilic, and cephalic veins are fully compressible. IMPRESSION: No sign of deep venous thrombosis in the left upper extremity. Dictated by Caleb Kimble MD @ 07/08/2025 1:50:02 AM Discharge Plan Discharge Clinical Impression: Biceps tendinitis, Bilateral kidney stones Patient Disposition: Home, Self-Care Condition: Stable Additional Instructions: Patient instructions on Kev Yi I apologize for the less professional looking discharge instructions, as discussed, we are on computer downtime tonight, we do this once monthly for required patches and updates. Your labs, CT and ultrasound all look great.? There were no signs of a blood clot.? I do think that the irritation that you are feeling in the elbow and forearm is a biceps tendinitis.? This is a common mild injury.? If you have persistent symptoms, physical therapy can be arranged.? It is okay for you to use Tylenol and/or ibuprofen as needed for mild discomfort.? Continue taking your aspirin as prescribed. You do have several stones up in your kidneys but none that appear to be stuck in the ureter or causing any obstructions right now.? Any of these could have been small enough to have recently passed as well and have caused symptoms earlier in the week.? No treatment is needed for this. The remainder of your labs look reassuring.? I recommend that you continue your current home management plan.? Follow-up with your primary care provider if her symptoms are not improving within the next week.? If you have severe shortness of breath, severe chest pain, neurological changes that are suggestive of strokes or other very worrisome complaints, please come to the emergency room.? I apologize for the extra weight with ultrasound.? We do typically have this available from 6:00 a.m. to 6:00 p.m..? If you are not having severe shortness of breath or critical symptoms, it is okay to wait to come in for investigations during those hours, especially Wednesday through Wednesday. Activity Level: No Restrictions Discharge Diet: Regular Prescriptions: No Action atorvastatin 20 mg tablet 20 mg PO QPM cyanocobalamin (vitamin B-12) 1,000 mcg tablet 1,000 mcg PO DAILY aspirin [Roque Chewable Aspirin] 81 mg tablet,chewable 81 mg PO DAILY insulin glargine [Lantus U-100 Insulin] 100 unit/mL solution 10 unit subcut QPM Ozempic 2 mg/dose (8 mg/3 mL) pen injector SUBCUT Patient Comments: [NO ORIGINAL SIG] Follow Up/Referrals: Carly Jesus M.D. [Primary Care Provider, Internal Medicine] Stand Alone Forms: [facility] Info Instructions
[2025-07-07 23:43] LABS: Hematocrit* 44.5 % (37.0-53.0); Hemoglobin* 15.0 gm/dL (13.5-17.5); Immature Granulocytes Abs Auto 0.07 K/uL (0.00-0.30); Immature Granulocytes Pct Auto 0.9 %; Lymphocytes Absolute Auto 2.24 K/uL (0.90-2.90); Mean Corpuscular HGB Conc 34 gm/dL (32-36); Mean Corpuscular Hemoglobin 33 pg (26-34); Mean Corpuscular Volume 97 fL (80-100); RDW Coefficient of Variation % 12.1 % (11.5-15.5); Red Blood Count* 4.57 m/uL (4.30-5.90); White Blood Count* 7.98 K/uL (4.50-11.00)
[2025-07-07 23:48] LABS: Slide Review Reflex No
[2025-07-08] LABS: Chloride* 103 mmol/L (96-114)
[2025-07-08 00:01] LABS: Albumin* 4.4 g/dL (3.3-5.0); Potassium* 3.5 mmol/L (3.6-5.1); Sodium* 139 mmol/L (135-149)
[2025-07-08 00:04] LABS: Alanine Aminotransferase* 26 U/L (4-50); Alkaline Phosphatase* 72 U/L (40-150); Anion Gap 12 mEq/L (7-15); Aspartate Amino Transferase* 27 U/L (12-35); Bilirubin Total* 0.9 mg/dL (0.1-1.5); Blood Urea Nitrogen* 22 mg/dL (7-30); Carbon Dioxide* 24 mmol/L (20-32); Creatinine* 0.9 mg/dL (0.5-1.5); Est. Creatinine Clearance* 62.35; Estimated Glomerular Filt Rate 94 ml/min; Total Protein* 7.8 g/dL (6.0-8.3)
[2025-07-08 00:05] LABS: Calcium* 9.1 mg/dL (8.4-10.6); Glucose* 139 mg/dL (60-115)
--- OUTSIDE RECORDS SUMMARY | 2025-07-08 00:53 | XMS_ITS | Encounter Summary ---
Author Organization [facility] Address [address] [place] [address] Care Team Providers Care Stencil Inspector Name Role Phone Carly Jesus MD Primary Care Provider [phone] Ip, Lucio Prakash MD Unavailable [phone] Zulma Madsen PA-C Unavailable [phone] Ip, Lucio Prakash MD Unavailable [phone] Carly Santos MD Unavailable [phone] Henrique Pulido MD Unavailable Neena Levine MD Unavailable [phone] Henrique Pulido MD Unavailable Marisol Hawthorne PA-C Unavailable [phone] Encounter Details Date Type Department Care Team (Late st Contact Info) Description 08/08/2024 MyC Medical Advice [facility] Insurance Verification [place] Social History Tobacco [...] on file Legal Sex Male 3:12 AM FAMILY LAW ATTORNEY Gender Identity Not on file Sexual Orientation Not on file documented as of this encounter Plan of Treatment Upcoming Encounters Date Type Department Care Team (Late st Contact Info) Description 08/02/2025 8:00 PM FAMILY LAW ATTORNEY Therapy Visit [facility] [place] [id number] [facility] [address] [place] [address] Marisol Hawthorne PA-C [address] [facility] [address] [place], [place] [address]15465 11/14/2025 9:00 AM CDT Office Visit [facility] [address] [address] Marisol Hawthorne PA-C [address] [place] [id number] documented as of this encounter Visit Diagnoses Not on filedocumented in this encounter Additional Health Concerns Infection Onset Date Last Indicated Resolved Time Rule Out COVID-19 09/03/2024 09/03/2024 09/03/2024 3:44 PM FAMILY LAW ATTORNEY Rule Out COVID-19 12/29/2024 12/29/2024 12/29/2024 2:49 AM CDT documented as of this encounter Care Teams Stencil Inspector Relationship Specialty Start Date End Date Carly Jesus MD [facility] [address] [place] [address] PCP - General Internal Medicine 06/06/24 Lucio Westfall MD [address] [place] 107[address] Cardiovascular Disease 08/16/24 Zulma Madsen PA-C [address] [address]50[address] Assigned Cancer Care Provider 08/21/24 Lucio Westfall MD [address] [place] 312215 Assigned Heart and Vascular Provider 08/21/24 Carly Santos MD [address] [facility] [address] [place] [address] Assigned Surgical Provider 08/21/24 Henrique Pulido MD [address] [place] 576[address] Neurology 09/29/24 Neena Levine MD [address] [place], [place] [address] Physician Neurology 10/11/24 Henrique Pulido MD [address] 499695 Assigned Neuroscience Provider 10/22/24 Marisol Hawthorne PA-C [address] [place] [address] [place] [address] Assigned Sleep Provider 04/21/25 documented as of this encounter
--- OUTSIDE RECORDS SUMMARY | 2025-07-08 00:53 | XMS_ITS | Encounter Summary ---
Author Organization [facility] Address [address] [place] [address] Care Team Providers Care Girl Friday Name Role Phone Carly Jesus MD Primary Care Provider [phone] Ip, Lucio Prakash MD Unavailable [phone] Zulma Madsen PA-C Unavailable [phone] Ip, Lucio Prakash MD Unavailable [phone] Carly Santos MD Unavailable [phone] Henrique Pulido MD Unavailable Neena Levine MD Unavailable [phone] Henrique Pulido MD Unavailable Marisol Hawthorne PA-C Unavailable [phone] Encounter Details Date Type Department Care Team (Late st Contact Info) Description 08/28/2024 MyC Medical Advice [facility] [address] [place] [address] Serene Lance, RN Social History [...] on file Legal Sex Male 3:12 AM INFORMATION CODER Gender Identity Not on file Sexual Orientation Not on file documented as of this encounter Plan of Treatment Upcoming Encounters Date Type Department Care Team (Late st Contact Info) Description 08/02/2025 8:00 PM INFORMATION CODER Therapy Visit [facility] [address] [facility] [address] [place] [phone] Marisol Hawthorne PA-C [address] [facility] [address] [place], [place] [id number] 11/14/2025 9:00 AM CDT Office Visit [facility] [address] [place] [phone] Marisol Hawthorne PA-C [address] [place] [address] documented as of this encounter Visit Diagnoses Not on filedocumented in this encounter Additional Health Concerns Infection Onset Date Last Indicated Resolved Time Rule Out COVID-19 09/03/2024 09/03/2024 09/03/2024 3:44 PM INFORMATION CODER Rule Out COVID-19 12/29/2024 12/29/2024 12/29/2024 2:49 AM CDT documented as of this encounter Care Teams Girl Friday Relationship Specialty Start Date End Date Carly Jesus MD [facility] [address] [place] [address] PCP - General Internal Medicine 06/06/24 Lucio Westfall MD [address] [place] 393[address] Cardiovascular Disease 08/16/24 Zulma Madsen PA-C [address] [place] [id number] Assigned Cancer Care Provider 08/21/24 Lucio Westfall MD [address] [place] [address] Assigned Heart and Vascular Provider 08/21/24 Carly Santos MD [address] [facility] [address] [place], [place] [address] Assigned Surgical Provider 08/21/24 Henrique Pulido MD [address] [address] Neurology 09/29/24 Neena Levine MD [address] [place] [address] Physician Neurology 10/11/24 Henrique Pulido MD [address] [place] [address] Assigned Neuroscience Provider 10/22/24 Marisol Hawthorne PA-C [address] [place] [address] [place] [address] Assigned Sleep Provider 04/21/25 documented as of this encounter
--- OUTSIDE RECORDS SUMMARY | 2025-07-08 00:53 | XMS_ITS | Encounter Summary ---
Author Organization [facility] Address [address] [place] [address] Care Team Providers Care Staff Educator Name Role Phone Carly Jesus MD Primary Care Provider [phone] Ip, Lucio Prakash MD Unavailable [phone] Zulma Madsen PA-C Unavailable [phone] Ip, Lucio Prakash MD Unavailable [phone] Carly Santos MD Unavailable [phone] Henrique Pulido MD Unavailable Neena Levine MD Unavailable [phone] Henrique Pulido MD Unavailable Marisol Hawthorne PA-C Unavailable [phone] Encounter Details Date Type Department Care Team (Late st Contact Info) Description 07/24/2024 External Order Results [facility] [address] [place] [address] Outside, Provider Social History Tobacco Use Types [...] in an abandoned building, in an overnight half-way, or couch-surfing.) Yes 07/06/2024 Are you worried [...] on file Legal Sex Male 3:12 AM DATA ENTRY SUPERVISOR Gender Identity Not on file Sexual Orientation Not on file documented as of this encounter Plan of Treatment Upcoming Encounters Date Type Department Care Team (Late st Contact Info) Description 08/02/2025 8:00 PM DATA ENTRY SUPERVISOR Therapy Visit [facility] Sleep [address] [place] [address] Marisol Hawthorne PA-C [address] [facility] [address] [address] 11/14/2025 9:00 AM CDT Office Visit [address] [address] Marisol Hawthorne PA-C [address] [facility] [address] [place] [address] documented as of this encounter Procedures Procedure Name Priority Date/Time Associated Diagnosis Comments T4 FREE Routine 08/07/2024 1:40 PM DATA ENTRY SUPERVISOR T3 TOTAL Routine 08/07/2024 1:40 PM DATA ENTRY SUPERVISOR CBC WITH PLATELETS & DIFFERENTIAL Routine 07/24/2024 4:25 PM DATA ENTRY SUPERVISOR TSH Routine 07/24/2024 4:25 PM DATA ENTRY SUPERVISOR BASIC METABOLIC PANEL Routine 07/24/2024 4:25 PM DATA ENTRY SUPERVISOR documented in this encounter Results * T3 total (08/07/2024 1:40 PM DATA ENTRY SUPERVISOR) T3 (External) 128 85 - 202 ng/dL NON-INTERFACED (ONBASE SCANS) Blood BLOOD SPECIMEN / Unknown 08/07/2024 1:40 PM DATA ENTRY SUPERVISOR Narrative BREEZE PFT - 08/17/2024 12:39 PM DATA ENTRY SUPERVISOR Verified by Jas Bass on 08/17/2024. us Provider Outside LAB - BLOOD ORDERABLES Edited R esult - Final BREEZE PFT NON-INTERFACED (ONBASE SCANS) * T4 free (08/07/2024 1:40 PM DATA ENTRY SUPERVISOR) Thyroxine Free (External) 1.09 0.90 - 1.70 g/dL NON-INTERFACED (ONBASE SCANS) Blood BLOOD SPECIMEN / Unknown 08/07/2024 1:40 PM DATA ENTRY SUPERVISOR Narrative BREEZE PFT - 08/17/2024 12:39 PM DATA ENTRY SUPERVISOR Verified by Jas Bass on 08/17/2024. us Provider Outside LAB - BLOOD ORDERABLES Edited R esult - Final BREEZE PFT NON-INTERFACED (ONBASE SCANS) * (ABNORMAL) CBC with Platelets & Differential (07/24/2024 4:25 PM DATA ENTRY SUPERVISOR) WBC Count (External) 6.12 4.0 - 11.0 [...] BLOOD SPECIMEN / Unknown 07/24/2024 4:25 PM DATA ENTRY SUPERVISOR Narrative NON-INTERFACED (ONBASE SCANS) - 08/17/2024 12:39 PM DATA ENTRY SUPERVISOR Verified by Jas Bass on 08/17/2024. Provider Outside LAB - BLOOD ORDERABLES Edited [employer] Performing Organization Address [facility] de Phone Number NON-INTERFACED (ONBASE SCANS) * (ABNORMAL) TSH (07/24/2024 4:25 PM DATA ENTRY SUPERVISOR) Pathologist [facility] TSH (External) 0.530(L) 0.66 - 5.45 uIU/mL NON-INTERFACE D (ONBASE SCANS) Blood BLOOD SPECIMEN / Unknown 07/24/2024 4:25 PM DATA ENTRY SUPERVISOR Narrative BREEZE PFT - 08/17/2024 12:39 PM DATA ENTRY SUPERVISOR Verified by Jas Bass on 08/17/2024. Provider Outside LAB - BLOOD ORDERABLES Edited [employer] Performing Organization Address [place]/[facility] Co de Phone Number BREEZE PFT NON-INTERFACED (ONBASE SCANS) * (ABNORMAL) Basic metabolic panel (07/24/2024 4:25 PM DATA ENTRY SUPERVISOR) Sodium (External) 136.1 133 - 144 mmol/L [...] BLOOD SPECIMEN / Unknown 07/24/2024 4:25 PM DATA ENTRY SUPERVISOR Narrative MUNA PFT - 08/17/2024 12:39 PM DATA ENTRY SUPERVISOR Verified by Jas Bass on 08/17/2024. us Provider Outside LAB - BLOOD ORDERABLES Edited R esult - Final BREEZNunu PFT NON-INTERFACED (ONBASE SCANS) documented in this encounter Visit Diagnoses Not on filedocumented in this encounter Additional Health Concerns Infection Onset Date Last Indicated Resolved Time Rule Out COVID-19 09/03/2024 09/03/2024 09/03/2024 3:44 PM DATA ENTRY SUPERVISOR Rule Out COVID-19 12/29/2024 12/29/2024 12/29/2024 2:49 AM CDT documented as of this encounter Care Teams Staff Educator Relationship Specialty Start Date End Date Carly Jesus MD [facility] [address] [place] [address] PCP - General Internal Medicine 06/06/24 Lucio Westfall MD [address] [place] [address] Cardiovascular Disease 08/16/24 Zulma Madsen PA-C [facility] [address] [address] Assigned Cancer Care Provider 08/21/24 Lucio Westfall MD [address] [place] [address] Assigned Heart and Vascular Provider 08/21/24 Carly Santos MD [address] [facility] [address] [place], [place] [address] Assigned Surgical Provider 08/21/24 Henrique Pulido MD [address] [id number] Neurology 09/29/24 Neena Levine MD [address] [place], [place] [address] Physician Neurology 10/11/24 Henrique Pulido MD [address] [address] Assigned Neuroscience Provider 10/22/24 Marisol Hawthorne PA-C [address] [place] [id number] Assigned Sleep Provider 04/21/25 documented as of this encounter
--- OUTSIDE RECORDS SUMMARY | 2025-07-08 00:53 | XMS_ITS | Clinical Summary ---
Author Organization [facility] Address [address] [place] [address] Care Team Providers Care Ux Manager Name Role Phone Needs Pcp, Assignment Primary Care Provider [phone] Source Comments You are receiving this document as you are listed as the primary care provider,follow-up provider, or the patient has been referred to you for consultation.This is in compliance with the Medicare andSt. [facility] Hospital[facility] EHR Incentive Program,which states Providers who transition their patient to another setting of careor provider of care or refers their patient to another provider of care shouldprovide summary care record for each transition of care or referral. [facility] Allergies No known active allergies Medications atenolol (TENORMIN) 25 MG tablet Take 25 mg by mouth daily. 04/27/2020 Active busPIRone (BUSPAR) 10 MG tablet Take 10 mg by mouth two times a day. 06/05/2020 Active Continuous Blood Gluc Sensor (FREESTYLE CAT 14 DAY SENSOR) [facility] 06/24/2020 Active metFORMIN (GLUCOPHAGE) 500 MG tablet [...] 36.6 C (97.9 F) 07/01/2020 6:31 PM CUSTOMS MANAGER Respiratory Rate 16 07/01/2020 6:31 PM CUSTOMS MANAGER Oxygen Saturation 98% 07/01/2020 6:31 PM CUSTOMS MANAGER Inhaled Oxygen Concentration - - Weight - [...] age to complete this topic Care Teams Ux Manager Relationship Specialty Start Date End Date Needs Pcp, [facility]a [facility] [address] PCP - General 08/10/22
--- OUTSIDE RECORDS SUMMARY | 2025-07-08 00:53 | XMS_ITS | Encounter Summary ---
Author Organization [facility] Address [address] [place] [address] Care Team Providers Care Knit Goods Washer Name Role Phone Carly Jesus MD Primary Care Provider [phone] Ip, Lucio Prakash MD Unavailable [phone] Zulma Madsen PA-C Unavailable [phone] Ip, Lucio Prakash MD Unavailable [phone] Carly Santos MD Unavailable [phone] Henrique Pulido MD Unavailable Neena Levine MD Unavailable [phone] Henrique Pulido MD Unavailable Marisol Hawthorne PA-C Unavailable +[phone] Reason for Referral * Diagnostic Procedure Office (Routine) - Authorized Specialty Diagnoses / Procedures Referred By Contac t Referred To Contact Diagnoses Paresthesia of hand, bilateral Procedures EMG Henrique Pulido MD [address] [facility] [address] Phone: tel: fax: Referral ID Status Reason Start Date Expiration Date V isits Requested Visits Authorized [id number] Authorized 10/10/2024 10/10/2025 1 1 LER PARK MANAGER Reason for Visit * Reason Onset Date Comments Orders 10/10/2024 EMG Encounter Details Date Type Department Care Team (Late st Contact Info) Description 10/10/2024 Telephone [facility] Neurology [facility] [address] [place] [address], [address] [place] [address] Henrique Pulido MD [address] [address] Orders (EMG) Social History Tobacco Use [...] on file Legal Sex Male 3:12 AM TRAILER PARK MANAGER Gender Identity Not on file Sexual Orientation Not on file documented as of this encounter Miscellaneous Notes * Telephone Encounter - Natalie Musa - 10/10/2024 1:06 PM CST [facility] Phone Message May a [...] Travel Screening: Not Applicable Date of Service: LER PARK MANAGER documented in this encounter Plan of Treatment Upcoming Encounters Date Type Department Care Team (Late st Contact Info) Description 08/02/2025 8:00 PM TRAILER PARK MANAGER Therapy Visit [place] [address] [place] [phone] Marisol Hawthorne PA-C [address] [place] [address] [place] [address]14[address] 11/14/2025 9:00 AM CDT Office Visit [facility] [address] [place] [phone] Marisol Hawthorne PA-C [address] [facility] [address] [place] 918575 Scheduled Orders Name Type Priority Associated Diagnoses [...] documented as of this encounter Care Teams Knit Goods Washer Relationship Specialty Start Date End Date Carly Jesus MD [facility] [address] [place] [address] PCP - General Internal Medicine 06/06/24 Lucio Westfall MD [address] [id number] Cardiovascular Disease 08/16/24 Zulma Madsen, PAJusticeC [address] [place] [address] 270224 Assigned Cancer Care Provider 08/21/24 Lucio Westfall MD [address] 009955 Assigned Heart and Vascular Provider 08/21/24 Carly Santos MD [address] [facility] [address] [place], [place] 932[address] Assigned Surgical Provider 08/21/24 Henrique Pulido MD [address] [place] [id number] Neurology 09/29/24 Neena Levine MD [address] [place] [address] 709845 Physician Neurology 10/11/24 Henrique Pulido MD [address] [address] Assigned Neuroscience Provider 10/22/24 Marisol Hawthorne PA-C [address] [place] [address] [place] [address] Assigned Sleep Provider 04/21/25 documented as of this encounter
--- OUTSIDE RECORDS SUMMARY | 2025-07-08 00:53 | XMS_ITS | Clinical Summary ---
Author Organization [facility] Address [address] [place] [address] Care Team Providers Care Side Door Worker Name Role Phone Elsewhere, Pcp Primary Care Provider Unavailabl e Source Comments Patient records contain information from all sites at [facility]. For routine questions regarding patient records, call [phone] during business hours, M-F 8:00 AM - 5:00 PM Central Time. 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 LAB BLOOD ADD-ON Final Res ult [facility] [address] [place] [address], [facility] STMA [facility] [address] [place] [address] from Last 3 Months or Most Recently Relevant to Health Maintenance Insurance MEDICARE Care Teams Side Door Worker Relationship Specialty Start Date End Date Elsewhere, Pcp PCP - General Family Medicine 07/13/20
--- OUTSIDE RECORDS SUMMARY | 2025-07-08 00:53 | XMS_ITS | Encounter Summary ---
Author Organization [facility] Address [address] [place] [address] Care Team Providers Care Gambling Floor Supervisor Name Role Phone Carly Jesus MD Primary Care Provider [phone] Ip, Lucio Prakash MD Unavailable [phone] Zulma Madsen PA-C Unavailable [phone] Ip, Lucio Prakash MD Unavailable [phone] Carly Santos MD Unavailable [phone] Henrique Pulido MD Unavailable Neena Levine MD Unavailable [phone] Henrique Pulido MD Unavailable Marisol Hawthorne PA-C Unavailable +[phone] Encounter Details Date Type Department Care Team (Late st Contact Info) Description 08/14/2024 MyC Medical Advice [facility] for Ble[facility] Disorders [address] [place] [address] Serene Lance, RN Social History [...] on file Legal Sex Male 3:12 AM SUPERINTENDENT GAS DISTRIBUTION Gender Identity Not on file Sexual Orientation Not on file documented as of this encounter Plan of Treatment Upcoming Encounters Date Type Department Care Team (Late st Contact Info) Description 08/02/2025 8:00 PM SUPERINTENDENT GAS DISTRIBUTION Therapy Visit [facility] [address] [facility] [address] [place] [phone] Marisol Hawthorne PA-C [address] [facility] [address] [place], [place] [id number] 11/14/2025 9:00 AM CDT Office Visit [facility] [address] [place] [phone] Marisol Hawthorne PA-C [address] [place] [address] documented as of this encounter Visit Diagnoses Not on filedocumented in this encounter Additional Health Concerns Infection Onset Date Last Indicated Resolved Time Rule Out COVID-19 09/03/2024 09/03/2024 09/03/2024 3:44 PM SUPERINTENDENT GAS DISTRIBUTION Rule Out COVID-19 12/29/2024 12/29/2024 12/29/2024 2:49 AM CDT documented as of this encounter Care Teams Gambling Floor Supervisor Relationship Specialty Start Date End Date Carly Jesus MD [facility] [address] [place] [address] PCP - General Internal Medicine 06/06/24 Lucio Westfall MD [address] [place] [address] Cardiovascular Disease 08/16/24 Zulma Madsen PA-C [address] [place] [address] 899694 Assigned Cancer Care Provider 08/21/24 Lucio Westfall MD [address] [place] 532445 Assigned Heart and Vascular Provider 08/21/24 Carly Santos MD [address] [facility] [address] [place], [place] [address] Assigned Surgical Provider 08/21/24 Henrique Pulido MD [address] [address] Neurology 09/29/24 Neena Levine MD [address] [place] [address] Physician Neurology 10/11/24 Henrique Pulido MD [address] [address] Assigned Neuroscience Provider 10/22/24 Marisol Hawthorne PA-C [address] [place] [address] [place] [address] Assigned Sleep Provider 04/21/25 documented as of this encounter
--- OUTSIDE RECORDS SUMMARY | 2025-07-08 00:53 | XMS_ITS | Clinical Summary ---
Author Organization [facility] Address [address] [place] [address] Care Team Providers Care Operations Research Manager Name Role Phone Carly Jesus MD Primary Care Provider [phone] Allergies Active Allergy Reactions Criticality Noted Date [...] be used to read blood sugars, follow compensation analyst directions. Apply every 14 days. 9 [...] work. He is in the [employer] business. What are Kev's challenges, stressors, or [...] Description 06/20/2025 10:10 AM CDT Office Visit [facility] [address] [facility] [address] [place] [address] Josee Carcamo MD Derm Problem 06/20/2025 Travel 05/09/2025 Nurse Triage [facility] Centralized Nurse Triage Carly Jesus MD Headache 05/07/2025 Nurse Triage [facility] [address] [facility] [place] [address] Carly Jesus MD Dizziness 04/13/2025 Telephone [facility] [address] [facility] [address] [place] [address] Josee Carcamo MD Call Return from Last [...] PM CDT Legal Sex Male 6:25 AM STUDIO SALES ASSOCIATE Gender Identity Male 12/18/2021 1:20 PM CDT Sexual Orientation Straight 12/18/2021 1: 20 PM CDT Travel History Travel Start Travel End [place] 06/08/2025 06/11/2025 Obstetrics History Last Filed Vital [...] 165.1 cm (5' 5) 10/02/2024 5:28 PM STUDIO SALES ASSOCIATE Body Mass Index 23.3 10/02/2024 5:28 PM STUDIO SALES ASSOCIATE Plan of Treatment Health Maintenance Due Date [...] RECT 170 mg/dL 01/12/2023 5:42 PM CDT [facility] PROVIDER ORDERED STATUS RANDOM 01/12/2023 5:42 PM CDT [facility] Blood BLOOD SPECIMEN / Unknown Venipuncture / Unknown 01/11/2023 2:36 PM CDT 01/11/2023 2:37 PM CDT Narrative [facility] - 01/12/2023 5:42 PM CDT Optimal <100 mg/dl Near Optimal 100-129 mg/dl Borderline High 130-159 mg/dl High 160-189 mg/dl Very High >=190 mg/dl us Tye Jordan MD CHEMISTRY Final Result [facility] [address] [place] [address], [place] * (ABNORMAL) OCCULT BLOOD IFOBT STOOL (12/01/2021 6:23 PM CDT) STOOL BLOOD ,IFOBT Positive(A ) Negative 12/01/2021 6:[address] [facility] Stool STOOL SPECIMEN / Unknown Non-Blood / Unknown 12/01/2021 6:23 PM CDT 12/01/2021 6:30 PM CDT us Ra Gomez MD LABORATORY Final Re sult [facility] [address] [place] [address] * ANTI HCV [15339.2] (12/05/2013 10:17 AM CDT) ANTI HCV Non-reacti ve [facility] Blood specimen (specimen) BLOOD SPECIMEN / Unknown 12/05/2013 10:17 AM CDT 12/05/2013 10:07 AM CDT us Lourdes Pereyra MD SEND OUTS Final Resul t [facility] [place]NAL ZIP [address] [address] [place] [address] from Last 3 Months or Most Recently Relevant to Health Maintenance Insurance [facility] MEDICARE PART A HB ONLY MEDICARE PART B HB ONLY [facility] MR Advance Directives * Full Code (Latest [...] 9:39 AM 09/28/2016 2:39 PM Care Teams Operations Research Manager Relationship Specialty [place] [address] [place] [address] PCP - General Internal Medicine 03/27/24
--- OUTSIDE RECORDS SUMMARY | 2025-07-08 00:53 | XMS_ITS | Encounter Summary ---
Author Organization [facility] Address [address] [place] [address] Care Team Providers Care Chipper Operator Name Role Phone Carly Jesus MD Primary Care Provider [phone] Ip, Lucio Prakash MD Unavailable [phone] Zulma Madsen PA-C Unavailable [phone] Ip, Lucio Prakash MD Unavailable [phone] Carly Santos MD Unavailable [phone] Henrique Pulido MD Unavailable Neena Levine MD Unavailable [phone] Henrique Pulido MD Unavailable Marisol Hawthorne PA-C Unavailable [phone] Encounter Details Date Type Department Care Team (Late st Contact Info) Description 10/24/2024 MyC Medical Advice [facility] for Ble[facility] Clot[facility] Disorders [address] 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 Gender Identity Not on file Sexual Orientation Not on file documented as of this encounter Plan of Treatment Upcoming Encounters Date Type Department Care Team (Late st Contact Info) Description 08/02/2025 8:00 PM LONG DISTANCE OPERATOR Therapy Visit [facility] [address] [place] [address] [place] [address] Marisol Hawthorne PA-C [address] [place] [address] 11/14/2025 9:00 AM CDT Office Visit [facility] [address] [place] [phone] Marisol Hawthorne PA-C [address] [place] 9218[address] documented as of this encounter Visit Diagnoses Not on filedocumented in this encounter Additional Health Concerns Infection Onset Date Last Indicated Resolved Time Rule Out COVID-19 12/29/2024 12/29/2024 12/29/2024 2:49 AM CDT documented as of this encounter Care Teams Chipper Operator Relationship Specialty Start Date End Date Carly Jesus MD [facility] [address] [address] [place] [address] PCP - General Internal Medicine 06/06/24 Lucio Westfall MD [address] [place] [id number] Cardiovascular Disease 08/16/24 Zulma Madsen PA-C [facility] [place] [address] 985174 Assigned Cancer Care Provider 08/21/24 Lucio Westfall MD [address] [place] 204805 Assigned Heart and Vascular Provider 08/21/24 Carly Santos MD [address] [facility] [address] [place] [address] Assigned Surgical Provider 08/21/24 Henrique Pulido MD [address] 601765 Neurology 09/29/24 Neena Levine MD [address] [place], [place] 429815 Physician Neurology 10/11/24 Henrique Pulido MD [address] 14[address] Assigned Neuroscience Provider 10/22/24 Marisol Hawthorne PA-C [address] [place] [address] [place] 458155 Assigned Sleep Provider 04/21/25 documented as of this encounter
--- OUTSIDE RECORDS SUMMARY | 2025-07-08 00:53 | XMS_ITS | Encounter Summary ---
Author Organization [facility] Address [address] [place] [address] Care Team Providers Care Curriculum Assistant Principal Name Role Phone Carly Jesus MD Primary Care Provider [phone] Ip, Lucio Prakash MD Unavailable [phone] Zulma Madsen PA-C Unavailable [phone] Ip, Lucio Prakash MD Unavailable [phone] Carly Santos MD Unavailable [phone] Henrique Pulido MD Unavailable Neena Levine MD Unavailable [phone] Henrique Pulido MD Unavailable Marisol Hawthorne PA-C Unavailable +[phone] Encounter Details Date Type Department Care Team (Late st Contact Info) Description 08/15/2024 MyC Medical Advice [facility] [address] [place] [address] Piper Mercado Social History Tobacco [...] on file 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 [address] [place] [phone] Marisol Hawthorne PA-C [address] [place] [address] documented as of this encounter Visit Diagnoses Not on filedocumented in this encounter Additional Health Concerns Infection Onset Date Last Indicated Resolved Time Rule Out COVID-19 09/03/2024 09/03/2024 09/03/2024 3:44 PM CLINICAL STAFF PHARMACIST Rule Out COVID-19 12/29/2024 12/29/2024 12/29/2024 2:49 AM CDT documented as of this encounter Care Teams Curriculum Assistant Principal Relationship Specialty Start Date End Date Carly Jesus MD [facility] [address] [address] [place] [address] PCP - General Internal Medicine 06/06/24 Lucio Westfall MD [address] [place] 954[address] Cardiovascular Disease 08/16/24 Zulma Madsen PA-C [address] [place] [address] 725594 Assigned Cancer Care Provider 08/21/24 Lucio Westfall MD [address] [place] 328795 Assigned Heart and Vascular Provider 08/21/24 Carly Santos MD [address] [facility] [address] [place] [address] Assigned Surgical Provider 08/21/24 Henrique Pulido MD [address] [address] Neurology 09/29/24 Neena Levine MD [address] [place], [place] 751075 Physician Neurology 10/11/24 Henrique Pulido MD [address] [address] Assigned Neuroscience Provider 10/22/24 Mairsol Hawthorne PA-C [address] [place] [address] [place] [address] Assigned Sleep Provider 04/21/25 documented as of this encounter
--- OUTSIDE RECORDS SUMMARY | 2025-07-08 00:53 | XMS_ITS | Encounter Summary ---
Author Organization [facility] Address [address] [place] [address] Care Team Providers Care Warm In Name Role Phone Carly Jesus MD Primary Care Provider [phone] Ip, Lucio Prakash MD Unavailable [phone] Zulma Madsen PA-C Unavailable [phone] Ip, Lucio Prakash MD Unavailable [phone] Carly Santos MD Unavailable [phone] Henrique Pulido MD Unavailable Neena Levine MD Unavailable [phone] Henrique Pulido MD Unavailable Marisol Hawthorne PA-C Unavailable +[phone] Encounter Details Date Type Department Care Team (Late st Contact Info) Description 08/08/2024 MyC Medical Advice [facility] for Bleeding [facility] Clot[facility] Disorders [address] [place] [address] Jaky Perry Social History Tobacco [...] in an abandoned building, in an overnight [place] [facility], or couch-surfing.) Yes 08/01/2024 Are you worried [...] on file 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 Gender Identity Not on file Sexual Orientation Not on file documented as of this encounter Plan of Treatment Upcoming Encounters Date Type Department Care Team (Late st Contact Info) Description 08/02/2025 8:00 PM VICE PRESIDENT OF NURSING Therapy Visit [facility] Sleep [place] [phone] [facility] [address] [place] [address] Marisol Hawthorne PA-C [address] [facility] [address] [place] [place] [address] 11/14/2025 9:00 AM CDT Office Visit [facility] [address] [place] [phone] Marisol Hawthorne PA-C [address] [place] [address] documented as of this encounter Visit Diagnoses Not on filedocumented in this encounter Additional Health Concerns Infection Onset Date Last Indicated Resolved Time Rule Out COVID-19 09/03/2024 09/03/2024 09/03/2024 3:44 PM VICE PRESIDENT OF NURSING Rule Out COVID-19 12/29/2024 12/29/2024 12/29/2024 2:49 AM CDT documented as of this encounter Care Teams Warm In Relationship Specialty Start Date End Date Carly Jesus MD [facility] [address] [place] [address] PCP - General Internal Medicine 06/06/24 Lucio Westfall MD [address] [place] 0467[address] Cardiovascular Disease 08/16/24 Zulma Madsen PA-C [address] [place] [address] 846564 Assigned Cancer Care Provider 08/21/24 Lucio Westfall MD [address] [place] [address] Assigned Heart and Vascular Provider 08/21/24 Carly Santos MD [address] [facility] [address] [place] [address] Assigned Surgical Provider 08/21/24 Henrique Pulido MD [address] [address] Neurology 09/29/24 Neena Levine MD [address] [place] [address] Physician Neurology 10/11/24 Henrique Pulido MD [address] [address] Assigned Neuroscience Provider 10/22/24 Marisol Hawthorne PA-C [address] [place] [address] [address] [place] [address] Assigned Sleep Provider 04/21/25 documented as of this encounter
--- OUTSIDE RECORDS SUMMARY | 2025-07-08 00:54 | XMS_ITS | Clinical Summary ---
Author Organization [facility] Address [address] [place] [address] Care Team Providers Care Primer Supervisor Name Role Phone Carly Jesus MD Primary Care Provider [phone] Ip, Lucio Prakash MD Unavailable [phone] Zulma Madsen PA-C Unavailable [phone] Ip, Lucio Prakash MD Unavailable [phone] Carly Santos MD Unavailable [phone] Henrique Pulido MD Unavailable Neena Levine MD Unavailable [phone] Henrique Pulido MD Unavailable Marisol Hawthorne PA-C Unavailable [phone] Allergies Active Allergy Reactions Criticality Noted Date [...] Description 04/13/2025 9:30 AM CDT Office Visit [facility] Sleep [address] [address] Carly Clark PA-C Baumann, Amber [...] in an abandoned building, in an overnight fpc, or couch-surfing.) Yes 12/29/2024 Are you worried [...] on file 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 [address] [place] [phone] Marisol Hawthorne PA-C [address] [place] [id number] Health Maintenance Due Date Last Done Comments [...] LIPID PROFILE STAT Add-on 08/01/2024 10:00 AM POCKET SECRETARY ASSEMBLER OCCULT BLOOD STOOL STAT 08/10/2018 8: 05 PM POCKET SECRETARY ASSEMBLER from Last 3 Months or Most Recently Relevant to Health Maintenance Results * (ABNORMAL) Hemoglobin A1c (05/01/2025 9:20 AM CDT) [facility] Estimated Average Glucose 143(H) <117 mg/dL [...] - BLOOD ORDERABLES Final Re sult LABORATORY [facility] [address] Lab (1st floor, no room number) [place] [address] [place] * (ABNORMAL) Basic metabolic panel (BMP) (03/03/2025 [...] LAB - BLOOD ORDE MELVIN Final Result [facility] [address] Lab (1st floor, no room number) [place] [address], [facility] * (ABNORMAL) Lipid panel reflex to direct LDL: Non-fasting (08/01/2024 10:00 AM POCKET SECRETARY ASSEMBLER) Cholesterol 211(H) <200 mg/dL 08/01/2024 11:28 PM POCKET SECRETARY ASSEMBLER [facility] Triglycerides 204(H) <150 mg/dL 08/01/2024 11:28 PM POCKET SECRETARY ASSEMBLER [facility] Direct Measure HDL 33(L) >=40 mg/dL 08/01/2024 11:28 PM POCKET SECRETARY ASSEMBLER [facility] LDL Cholesterol Calculated 137(H) <100 mg/dL 08/01/2024 11:28 PM POCKET SECRETARY ASSEMBLER [facility] Non HDL Cholesterol 178(H) <130 mg/dL 08/01/2024 11:28 PM POCKET SECRETARY ASSEMBLER [facility] Blood BLOOD SPECIMEN / Unknown Venipuncture / Unknown 08/01/2024 10:00 AM POCKET SECRETARY ASSEMBLER 08/01/2024 10:05 AM POCKET SECRETARY ASSEMBLER Narrative [facility] - 08/01/2024 11:28 PM POCKET SECRETARY ASSEMBLER Cholesterol Desirable: < 200 mg/dL Borderline High: [...] - BLOOD ORDERABLES Final Result [facility] [place] [facility] [address] [facility] [address], [address] [place] [address], [facility] * Stool: occult blood (08/10/2018 8:05 PM POCKET SECRETARY ASSEMBLER) Occult Blood Negative NEG^Negati ve 08/10/2018 8:10 PM POCKET SECRETARY ASSEMBLER [facility] Stool specimen (specimen) 08/10/2018 8:05 PM POCKET SECRETARY ASSEMBLER 08/10/2018 8:08 PM POCKET SECRETARY ASSEMBLER us Silvia Powell MD LAB - STOOLS ORDERABLES Edited Result - Final [facility] [address] [place] [address], [facility] [phone] from Last 3 Months or Most Recently Relevant to Health Maintenance Insurance TEMPORARILY AWAY [place], [place] [employer] MEDICARE ADVANTAGE [employer] MEDICARE ADVANTAGE [facility] Advance Directives For more information, please contact: [phone] * Full Code (Latest Code Status on [...] guy nt/ legal decision maker Care Teams Primer Supervisor Relationship Specialty Start Date End Date Carly Jesus MD [facility] [address] [place] [address] PCP - General Internal Medicine 06/06/24 Lucio Westfall MD [address] [place] [address] Cardiovascular Disease 08/16/24 Zulma Madsen PA-C [facility] [address] [id number] Assigned Cancer Care Provider 08/21/24 Lucio Westfall MD [address] [place] [id number] Assigned Heart and Vascular Provider 08/21/24 Carly Santos MD [address] [facility] [address] [place], [place] [address] Assigned Surgical Provider 08/21/24 Henrique Pulido MD [address] [place] [phone] Neurology 09/29/24 Neena Levine MD [address] [place], [place] 4205[address] Physician Neurology 10/11/24 Henrique Pulido MD [address] [place] [address] Assigned Neuroscience Provider 10/22/24 Marisol Hawthorne PA-C [address] [place] [address] Assigned Sleep Provider 04/21/25
--- OUTSIDE RECORDS SUMMARY | 2025-07-08 00:54 | XMS_ITS | Encounter Summary ---
Author Organization [facility] Address [address] [place] [address] Care Team Providers Care Librarian Special Collections Name Role Phone Carly Jesus MD Primary Care Provider [phone] Ip, Lucio Prakash MD Unavailable [phone] Zulma Madsen PA-C Unavailable [phone] Ip, Lucio Prakash MD Unavailable [phone] Carly Santos MD Unavailable [phone] Henrique Pulido MD Unavailable Neena Levine MD Unavailable [phone] Henrique Pulido MD Unavailable Marisol Hawthorne PA-C Unavailable [phone] Encounter Details Date Type Department Care Team (Late st Contact Info) Description 01/09/2025 [facility] [address] [place] [address] Lamont Moon Social History Tobacco Use [...] in an overnight assisted, or couch-surfing.) Yes 12/29/2024 Are you worried [...] on file 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 Gender Identity Not on file Sexual Orientation Not on file documented as of this encounter Plan of Treatment Upcoming Encounters Date Type Department Care Team (Late st Contact Info) Description 08/02/2025 8:00 PM CRA OFFICER Therapy Visit [facility] [address] [facility] [address] [phone] Marisol Hawthorne PA-C [address] [place], [place] [id number] 11/14/2025 9:00 AM CDT Office Visit [facility] [address] [place] [phone] Marisol Hawthorne PA-C [address] [place] [address] documented as of this encounter Visit Diagnoses Not on filedocumented in this encounter Care Teams Librarian Special Collections Relationship Specialty Start Date End Date Carly Jesus MD [facility] [address] [place] [address] PCP - General Internal Medicine 06/06/24 Lucio Westfall MD [address] [place] [address] Cardiovascular Disease 08/16/24 Zulma Madsen PA-C [address] [place] [address]59274 Assigned Cancer Care Provider 08/21/24 Lucio Westfall MD [address] [place] [address] Assigned Heart and Vascular Provider 08/21/24 Carly Santos MD [address] [facility] [address] [place] [address] Assigned Surgical Provider 08/21/24 Henrique Pulido MD [address] [place] [address] Neurology 09/29/24 Neena Levine MD [address] [place] [address] Physician Neurology 10/11/24 Henrique Pulido MD [address] [place] [address] Assigned Neuroscience Provider 10/22/24 Marisol Hawthorne PA-C [address] [place] [address] [place] [address] Assigned Sleep Provider 04/21/25 documented as of this encounter
[2025-07-08 02:39] LABS: Appearance Urine Clear (Clear)
--- NOTE | 2025-07-08 23:35 | US_ITS ---
Patient: SHERIN PEREZ Facility:?[facility] Patient ID:?[id number] Site Patient ID:?[id number]. Site :?[id number] Study:?US-Extremity Left Upper arm venous-07/08/2025 1:36:57 AM Ordering Physician:?Marah Dai Final Report: INDICATION: Left arm pain. TECHNIQUE: Ultrasound venous duplex left upper extremity. Compression venous exam was performed using valle-scale, color Doppler, and spectral Doppler imaging. COMPARISON: None. FINDINGS: The left internal jugular, subclavian, and axillary veins are patent with normal waveforms. The brachial, basilic, and cephalic veins are fully compressible. IMPRESSION: No sign of deep venous thrombosis in the left upper extremity. Dictated by Caleb Kimble MD @ 07/08/2025 1:50:02 AM (Electronic Signature)
== END 2025-07-08 02:00 | disposition home or self-care (01) ==
PROVIDERS: Emergency Provider Family Medicine; PCP Pediatrics
DX: N20.0 Calculus of kidney (principal); M75.22 Bicipital tendinitis, left shoulder; E11.9 Type 2 diabetes mellitus without complications; Z87.442 Personal history of urinary calculi; Z86.73 Personal history of transient ischemic attack (TIA), and cerebral infarction without residual deficits; Z86.718 Personal history of other venous thrombosis and embolism; Z79.82 Long term (current) use of aspirin; Z79.4 Long term (current) use of insulin; Z79.85 Long-term (current) use of injectable non-insulin antidiabetic drugs
CPT/HCPCS: 36415; 74176; 80053; 81001; 85025; 86140; 93971; 99284